=== PATIENT | female | born 1975 | race Native Hawaiian/Other Pacific Islander ===

== ENCOUNTER 2017-02-23 16:55 | Observation (INO) | payer OTHER ==
[2017-02-23] MEDS ORDERED: NITROGLYCERIN OINT 1 INCH/GM PACKET TOPICAL STA (18:54)
[2017-02-23] MEDS ORDERED: SODIUM CHLORIDE 0.9% 1,000 ML IV STA (18:54)
[2017-02-23] MEDS ORDERED: SODIUM CHLORIDE 0.9% 500 ML IV STA (18:54)
[2017-02-23] MEDS ORDERED: ASPIRIN 81 MG PO STA (18:54)
[2017-02-23 19:30] LABS: Basophils # (A) 0.1 k/uL (0-0.2); Basophils % (A) 1 %; CH 29.3; CHCM 32.3; Eosinophils # (A) 0.3 k/uL (0-0.7); Eosinophils % (A) 3 %; HCT 45.3 % (34.0-46.0); HDW 2.58; HGB 14.9 gm/dL (11.4-16.0); Luc # (Auto) 0.18; Luc % (Auto) 2; Lymphocytes # (A) 1.7 k/uL (1.0-4.8); Lymphocytes % (A) 19 %; MCH 29.9 pg (25.0-35.0); MCHC 32.8 g/dL (31.0-37.0); Mean Platelet Volume 7.3; Monocytes # (A) 0.4 k/uL (0-1.0); Monocytes % (A) 5 %; Neutrophils # (A) 6.4 k/uL (1.3-7.7); Neutrophils % (A) 71 %; RBC 4.97 m/uL (3.80-5.40); RDW 12.4 % (11.5-15.5); WBC (Perox) 9.12
[2017-02-23 19:39] LABS: HCG,Qualitative Serum Not Detected
[2017-02-23 19:42] LABS: ALT 30 U/L (9-52); AST 31 U/L (14-36); Alkaline Phosphatase 59 U/L (38-126); Anion Gap 13 mmol/L; Blood Urea Nitrogen 15 mg/dL (7-17); Calcium 9.2 mg/dL (8.4-10.2); Carbon Dioxide 21 mmol/L (22-30); Chloride 106 mmol/L (98-107); Glucose 83 mg/dL (74-99); Non-African American GFR(MDRD) >60 (>60 ml/min/1.73 sqM); Potassium 4.2 mmol/L (3.5-5.1); Sodium 140 mmol/L (137-145); Total Bilirubin 0.8 mg/dL (0.2-1.3); Total Protein 7.6 g/dL (6.3-8.2)
[2017-02-23 19:54] LABS: Creatine Kinase 61 U/L (30-135)
[2017-02-23 19:56] LABS: Partial Thromboplastin Time 25.5 sec (22.0-30.0); Prothrombin Time 10.4 sec (9.0-12.0)
--- NOTE | 2017-02-23 19:58 | XR ---
EXAMINATION TYPE: XR chest 2V DATE OF EXAM: 02/23/2017 COMPARISON: NONE HISTORY: Chest pain TECHNIQUE: Frontal and lateral views of the chest are obtained. FINDINGS: Heart and mediastinum are normal. Lungs are clear. Diaphragm is normal. Bony thorax is int act. There are chest leads. IMPRESSION: Normal chest. No change.
[2017-02-23 20:07] LABS: Creatine Kinase MB <0.2 ng/mL (0.0-2.4); Troponin I <0.012 ng/mL (0.000-0.034)
--- NOTE | 2017-02-23 20:13 | ED ---
Chest Pain HPI - General Chief Complaint: Chest Pain Stated Complaint: Weakness, fatigue, chest pains Time Seen by Provider: 02/23/17 18:48 Source: patient Mode of arrival: wheelchair Limitations: no limitations - History of Present Illness Initial Comments: This 42-year-old white female presents with the complaint of some chest pain. This is to her midsternal region. It has been intermittent over the past couple of weeks but more severe today. She states that she was also very fatigued and felt tired this morning. She did not go to work and apparently slept most of the day. She denies any leg pain or swelling or history of DVT or PE. She denies any known previous cardiac disease. She has had occasional palpitations her feelings like her heart is skipping a beat. She denies any fevers or chills. She has had occasional shortness of breath. This will occur at rest. She has never had any previous heart catheterizations. No other complaints or modifying factors. - Related Data Home Medications Medication Instructions Recorded Confirmed Cyclobenzaprine [Flexeril] 10 mg PO DAILY PRN 02/23/17 02/23/17 Meloxicam [Mobic] 7.5 mg PO DAILY PRN 02/23/17 02/23/17 Allergies Allergy/AdvReac Type Severity Reaction Status Date / Time doxycycline Allergy Nausea & Verified 02/23/17 19:05 Vomiting Penicillins Allergy Unknown Verified 02/23/17 19:05 Review of Systems ROS Statement: Those systems with pertinent positive or pertinent negative responses have been documented in the HPI. ROS Other: All systems not noted in ROS Statement are negative. Past Medical History Past Medical History: Osteoarthritis (OA) Additional Past Medical History / Comment(s): DDD History of Any Multi-Drug Resistant Organisms: None Reported Past Surgical History: Tubal Ligation Past Psychological History: No Psychological Hx Reported Smoking Status: Never smoker Past Alcohol Use History: Occasional Past Drug Use History: None Reported General Exam - General Exam Comments Initial Comments: GENERAL: The patient is well nourished and well hydrated. VITAL SIGNS: Heart rate, blood pressure, respiratory rate reviewed as recorded in nurse's notes. EYES: Pupils are round and reactive. Extraocular movements are intact. No conjunctival / lid redness or swelling. ENT: No external evidence of injury, swelling, or ecchymosis. Airway is patent. Throat is clear. NECK: Nontender. No swelling or evidence of injury. No subcutaneous emphysema. Trachea is midline. No thyroid mass. HEART: Regular rate and rhythm. Good peripheral pulses. No reproducible tenderness noted. LUNGS/CHEST: Breath sounds clear and equal bilaterally. No rales, rhonchi, or wheezes. No ecchymosis, subcutaneous emphysema, or tenderness. ABDOMEN: Abdomen soft without tenderness. No palpable masses or organomegaly. No peritoneal signs. No abdominal wall swelling or ecchymosis. EXTREMITIES: No extremity tenderness. Normal muscle tone and function. No thoracolumbar tenderness. NEUROLOGIC: Sensation is grossly intact. Cranial nerve exam reveals face is symmetrical, tongue is midline, speech is clear. SKIN: No abrasions or ecchymosis is noted. No induration or masses noted. PSYCHIATRIC: Alert and oriented. Appropriate behavior and judgment. Limitations: no limitations Course Vital Signs 02/23/17 02/23/17 02/23/17 17:01 19:30 19:42 Temperature 98.4 F Pulse Rate 77 86 66 Respiratory 18 18 18 Rate Blood Pressure 129/89 124/63 117/67 O2 Sat by Pulse 98 100 100 Oximetry 02/23/17 20:31 Temperature Pulse Rate 64 Respiratory 16 Rate Blood Pressure 129/69 O2 Sat by Pulse 100 Oximetry Chest Pain MDM - MDM The patient was seen and examined. All diagnostics were reviewed. The EKG shows a normal sinus rhythm at a rate of 83. There is no acute ST-T wave changes identified. The OK interval is 138, QRS duration is 84, and QTC intervals 432. An IV is started and patient was placed on a quality assurance monitor. No ectopy is identified. She does receive some aspirin as well as Nitropaste. The laboratory is unremarkable. The chest x-ray did not show any acute process. It is felt as though she would benefit from further inpatient workup to rule out acute coronary syndrome. The case is discussed with Dr. Arguello and he is agreeable with admission with cardiology to consult. Disposition Clinical Impression: Chest pain, Unstable angina pectoris Disposition: ADMITTED IP TO THIS HOSP Condition: Fair Time of Disposition: 21:14 Decision Date: 02/23/17 Decision Time: 21:14
[2017-02-23 20:33] VITALS: RESP 16
[2017-02-23] MEDS ORDERED: NITROGLYCERIN SL TABS 0.4 MG TAB SUBLINGUAL PRN (21:15)
[2017-02-23] MEDS ORDERED: MELOXICAM 7.5 MG TAB PO PRN (21:18)
[2017-02-23] MEDS ORDERED: CYCLOBENZAPRINE 10 MG TAB PO PRN (21:18)
[2017-02-23] MEDS: NITROGLYCERIN OINT 1 INCH/GM PACKET TOPICAL SCH (23:32)
[2017-02-24 01:08] LABS: Creatine Kinase 48 U/L (30-135)
[2017-02-24 01:22] LABS: Creatine Kinase MB <0.2 ng/mL (0.0-2.4); Troponin I <0.012 ng/mL (0.000-0.034)
[2017-02-24] MEDS ORDERED: ACETAMINOPHEN TAB 325 MG TAB PO PRN (01:51)
[2017-02-24] MEDS: NITROGLYCERIN OINT 1 INCH/GM PACKET TOPICAL SCH ×2 (05:38→12:08)
[2017-02-24 07:07] LABS: Cholesterol 141 mg/dL (<200); HDL Cholesterol 30 mg/dL (40-60)
[2017-02-24 07:18] LABS: Creatine Kinase 44 U/L (30-135)
[2017-02-24 07:32] LABS: Creatine Kinase MB <0.2 ng/mL (0.0-2.4); Troponin I <0.012 ng/mL (0.000-0.034)
[2017-02-24] MEDS ORDERED: ASPIRIN 325 MG TAB PO SCH (09:00)
[2017-02-24] MEDS ORDERED: ENOXAPARIN 40 MG/0.4 ML SYRINGE SQ SCH (09:00)
--- NOTE | 2017-02-24 10:44 | ECHOF ---
Referral Reason:cp MEASUREMENTS -------- HEIGHT: 157.5 cm WEIGHT: 79.4 kg BP: 111/56 RVIDd: 2.5 cm (< 3.3) IVSd: 1.1 cm (0.6 - 1.1) LVIDd: 4.6 cm (3.9 - 5.3) LVPWd: 0.8 cm (0.6 - 1.1) IVSs: 1.2 cm LVIDs: 3.4 cm LVPWs: 1.1 cm LA Diam: 3.3 cm (2.7 - 3.8) LAESV Index (A-L): 25.00 ml/m Ao Diam: 2.5 cm (2.0 - 3.7) AV Cusp: 1.9 cm (1.5 - 2.6) LA Diam: 3.6 cm (2.7 - 3.8) MV EXCURSION: 16.703 mm (> 18.000) MV EF SLOPE: 101 mm/s (70 - 150) EPSS: 0.8 cm MV E Cecilio: 0.68 m/s MV DecT: 165 ms MV A Cecilio: 0.73 m/s MV E/A Ratio: 0.93 RAP: 5.00 mmHg RVSP: 24.73 mmHg FINDINGS -------- Sinus rhythm. This was a technically adequate study. LV size, wall thickness and systolic function are normal, with an EF greater than 55%. The left ventricular size is normal. The right ventricle is normal in size. Normal LA size by volume 22+/-6 ml/m2. The right atrial size is normal. The aortic valve is trileaflet, and appears structurally normal. No aortic stenosis or regurgitation. Mild mitral regurgitation is present. Mild tricuspid regurgitation present. There is no evidence of pulmonary hypertension. The right ventricular systolic pressure, as measured by Doppler, is 24.73mmHg. There is no pulmonic regurgitation present. The aortic root size is normal. There is no pericardial effusion. CONCLUSIONS -------- 1. LV size, wall thickness and systolic function are normal, with an EF greater than 55%. 2. There is no pericardial effusion. 3. The left ventricular size is normal. 4. The aortic valve is trileaflet, and appears structurally normal. No aortic stenosis or regurgitation. 5. Mild mitral regurgitation is present. 6. Mild tricuspid regurgitation present. 7. There is no evidence of pulmonary hypertension. 8. The right ventricular systolic pressure, as measured by Doppler, is 24.73mmHg. 9. There is no pulmonic regurgitation present. 10. The aortic root size is normal. [employer]CTION MANAGER: Pinky Owusu RDCS
--- NOTE | 2017-02-24 12:10 | P.CRDCN ---
History of Present Illness Consult date: 02/24/17 History of present illness: This is a 42-year-old female with no significant medical hisotry. She presents to ED with c/o midsternal burning for the previous month intermittently. She states the feeling comes without any precipitating factors she can recall. It is worse when she lays down. Has been taking tums frequently with some relief. Although she has been dealing with this burning for some time yesterday she felt increased fatigue, nausea and generalized body aches and wanted to sleep all day. No history of HTN, HLD, CAD, never smoker, denies alcohol use. She has never seen a community arts centre manager for any reason. EKG indicates NSR with no acute ST or T-wave abnormalities. CXR indicates no acute cardiopulmonary process. BP 96/52, heart rate 68. No further episodes of burning since admission. Review of Systems Extensive review of systems performed, negative except mentioned in HPI. Past Medical History Past Medical History: Osteoarthritis (OA) Additional Past Medical History / Comment(s): DDD History of Any Multi-Drug Resistant Organisms: None Reported Past Surgical History: Tubal Ligation Past Anesthesia/Blood Transfusion Reactions: No Reported Reaction Past Psychological History: No Psychological Hx Reported Smoking Status: Never smoker Past Alcohol Use History: Occasional Past Drug Use History: None Reported - Past Family History Father Family Medical History: Diabetes Mellitus, Renal Disease Mother Family Medical History: Hypertension Brother(s) Family Medical History: Cancer Additional Family Medical History / Comment(s): scizophrenia, cancer unknown Sister(s) Family Medical History: No Reported History Son(s) Additional Family Medical History / Comment(s): autism, ADD Medications and Allergies Home Medications Medication Instructions Recorded Confirmed Type Cyclobenzaprine [Flexeril] 10 mg PO DAILY PRN 02/23/17 02/23/17 History Meloxicam [Mobic] 7.5 mg PO DAILY PRN 02/23/17 02/23/17 History Allergies Allergy/AdvReac Type Severity Reaction Status Date / Time doxycycline Allergy Nausea & Verified 02/23/17 22:32 Vomiting Penicillins Allergy Unknown Verified 02/23/17 22:32 Physical Exam Vitals: Vital Signs Temp Pulse Pulse Resp BP BP Pulse Ox 02/24/17 07:50 98.1 F 68 16 96/52 99 02/24/17 04:00 98.2 F 64 16 111/56 98 02/24/17 03:25 16 02/23/17 22:34 16 02/23/17 22:24 98.1 F 65 16 122/77 99 02/23/17 21:26 72 16 131/81 99 02/23/17 20:31 64 16 129/69 100 02/23/17 19:42 66 18 117/67 100 02/23/17 19:30 86 18 124/63 100 02/23/17 17:01 98.4 F 77 18 129/89 98 Intake and Output 02/23/17 02/24/17 02/24/17 22:59 06:59 14:59 Intake Total 800 Balance 800 Intake: IV 800 Sodium Chloride 0.9% 1, 800 000 ml @ 100 mls/hr IV . Q10H STA Rx#:[id number] Other: Voiding Method Toilet Toilet # Voids 2 Weight 72.575 kg 78.8 kg GENERAL: This is a 42-year-old female in no apparent distress at the time of my examination. HEENT: Head is atraumatic, normocephalic. Pupils are equal, round. Sclerae anicteric. Conjunctivae are clear. Mucous membranes of the mouth are moist. Neck is supple. There is no jugular venous distention. No carotid bruit is heard. LUNGS: Clear to auscultation no wheezes, rales or rhonchi. No chest wall tenderness is noted on palpation or with deep breathing. HEART: Regular rate and rhythm without murmurs, rubs or gallops. S1 and S2 heard. ABDOMEN: Soft, nontender. Bowel sounds are heard. No organomegaly noted. EXTREMITIES: 2+ peripheral pulses with no evidence of peripheral edema and no calf tenderness noted. NEUROLOGIC: Patient is awake, alert and oriented x3. Results 02/23/17 18:10 02/23/17 18:10 Cardiac Enzymes 02/23/17 02/23/17 02/23/17 Range/Units 18:10 18:10 23:51 AST 31 (14-36) U/L CK-MB (CK-2) <0.2 <0.2 (0.0-2.4) ng/mL Troponin I <0.012 <0.012 (0.000-0.034) ng/mL 02/24/17 Range/Units 06:26 AST (14-36) U/L CK-MB (CK-2) <0.2 (0.0-2.4) ng/mL Troponin I <0.012 (0.000-0.034) ng/mL Coagulation 02/23/17 Range/Units 19:40 PT 10.4 (9.0-12.0) sec APTT 25.5 (22.0-30.0) sec Lipids 02/24/17 Range/Units 06:26 Triglycerides 114 (<150) mg/dL Cholesterol 141 (<200) mg/dL HDL Cholesterol 30 L (40-60) mg/dL CBC 02/23/17 Range/Units 18:10 WBC 9.0 (3.8-10.6) k/uL RBC 4.97 (3.80-5.40) m/uL Hgb 14.9 (11.4-16.0) gm/dL Hct 45.3 (34.0-46.0) % Plt Count 272 (150-450) k/uL Comprehensive Metabolic Panel 02/23/17 Range/Units 18:10 Sodium 140 (137-145) mmol/L Potassium 4.2 (3.5-5.1) mmol/L Chloride 106 (98-107) mmol/L Carbon Dioxide 21 L (22-30) mmol/L BUN 15 (7-17) mg/dL Creatinine 0.64 (0.52-1.04) mg/dL Glucose 83 (74-99) mg/dL Calcium 9.2 (8.4-10.2) mg/dL AST 31 (14-36) U/L ALT 30 (9-52) U/L Alkaline Phosphatase 59 (38-126) U/L Total Protein 7.6 (6.3-8.2) g/dL Albumin 4.6 (3.5-5.0) g/dL Current Medications Generic Name Dose Route Start Last Admin Trade Name Freq PRN Reason Stop Dose Admin Acetaminophen 650 mg 02/24/17 01:51 Tylenol Tab PO Q4HR PRN Fever and/ or Pain Aspirin 325 mg 02/24/17 09:00 Aspirin PO DAILY BRITTANY Cyclobenzaprine HCl 10 mg 02/23/17 21:18 02/23/17 23:32 Flexeril PO 5 mg DAILY PRN Administration Pain Enoxaparin Sodium 40 mg 02/24/17 09:00 Lovenox SQ DAILY BRITTANY Meloxicam 7.5 mg 02/23/17 21:18 02/23/17 23:32 Mobic PO 7.5 mg DAILY PRN Administration Vertigo Nitroglycerin 1 inch 02/24/17 00:00 02/24/17 05:38 Nitro-Bid Oint TOPICAL Not Given Q6HR BRITTANY Nitroglycerin 0.4 mg 02/23/17 21:15 Nitrostat SUBLINGUAL Q5M PRN Chest Pain Intake and Output 02/23/17 02/24/17 02/24/17 22:59 06:59 14:59 Intake Total 800 Balance 800 Intake: IV 800 Sodium Chloride 0.9% 1, 800 000 ml @ 100 mls/hr IV . Q10H STA Rx#:[id number] Other: Voiding Method Toilet Toilet # Voids 2 Weight 72.575 kg 78.8 kg 02/23/17 18:10 02/23/17 18:10 EKG Interpretations (text) EKG indicates a normal sinus mechanism with no acute ST or T-wave abnormalities. Assessment and Plan Plan: ASSESSMENT 1. Chest pain, atypical. Suspect reflux disease. 2. Viral syndrome PLAN Obtain echocardiogram and check d-dimer. This presentation is not highly suggestive of acute coronary syndrome. If the echo and d-dimer are acceptable, the patient should be discharged home. She has been advised to follow up in the office with Dr. Oviedo to schedule an outpatient stress test once her viral syndrome has subsided. Thank you kindly for this consultation. Nurse Practitioner note has been reviewed, I agree with a documented findings and plan of care. Patient was seen and examined.
[2017-02-24 14:13] VITALS: BP 118/63; PULSE 77; TEMP 98.8
--- NOTE | 2017-02-27 07:46 | P.HPIM ---
History of Present Illness H&P Date: 02/23/17 Chief Complaint: Chest pressure. This is a history of physical and a 42-year-old female who complained of significant chest pressure for several days prior to admission. She has no previous cardiac history. However, given her overall cardiac history of chest pressure and some nausea with diaphoresis, she was appropriately evaluated for observation. Enzymatic elevation is not been seen so far. She seems less anxious now that she's been admitted. Cardiology is now been consulted. Review of Systems Constitutional: Denies chills, Denies fever Eyes: denies blurred vision, denies pain Ears, nose, mouth and throat: Denies headache, Denies sore throat Cardiovascular: Reports as per HPI, Reports chest pain Respiratory: Denies cough Gastrointestinal: Denies abdominal pain, Denies diarrhea, Denies nausea, Denies vomiting Genitourinary: Denies dysuria, Denies hematuria Past Medical History Past Medical History: Osteoarthritis (OA) Additional Past Medical History / Comment(s): DDD History of Any Multi-Drug Resistant Organisms: None Reported Past Surgical History: Tubal Ligation Past Anesthesia/Blood Transfusion Reactions: No Reported Reaction Past Psychological History: No Psychological Hx Reported Smoking Status: Never smoker Past Alcohol Use History: Occasional Past Drug Use History: None Reported - Past Family History Father Family Medical History: Diabetes Mellitus, Renal Disease Mother Family Medical History: Hypertension Brother(s) Family Medical History: Cancer Additional Family Medical History / Comment(s): scizophrenia, cancer unknown Sister(s) Family Medical History: No Reported History Son(s) Additional Family Medical History / Comment(s): autism, ADD Medications and Allergies Home Medications Medication Instructions Recorded Confirmed Type Cyclobenzaprine [Flexeril] 10 mg PO DAILY PRN 02/23/17 02/23/17 History Meloxicam [Mobic] 7.5 mg PO DAILY PRN 02/23/17 02/23/17 History Allergies Allergy/AdvReac Type Severity Reaction Status Date / Time doxycycline Allergy Nausea & Verified 02/23/17 22:32 Vomiting Penicillins Allergy Unknown Verified 02/23/17 22:32 Physical Exam - Constitutional General appearance: average body habitus - EENT Eyes: EOMI - Neck Neck: no lymphadenopathy - Respiratory Respiratory: bilateral: CTA - Cardiovascular Rhythm: regular Heart sounds: normal: S1, S2 - Gastrointestinal General gastrointestinal: soft, no tenderness - Integumentary Integumentary: no cellulitis - Musculoskeletal Musculoskeletal: gait normal Results CBC & Chem 7: 02/23/17 18:10 02/23/17 18:10 Thrombosis Risk Factor Assmnt - Choose All That Apply Any of the Below Risk Factors Present?: Yes Each Factor Represents 1 point: Obesity (BMI >25) Other Risk Factors: No Other congenital or acquired thrombophilia - If yes, enter type in comment: No Thrombosis Risk Factor Assessment Total Risk Factor Score: 1 Thrombosis Risk Factor Assessment Level: Low Risk Assessment and Plan (1) Chest pain Status: Acute (2) Unstable angina pectoris Status: Acute Plan: Plan will be to rule out myocardial infarction and then have cardiology consulted. I expect her to have appropriate stress testing prior to discharge. Reconcile medications as necessary. Lifestyle medication discussed with the patient.
--- NOTE | 2017-02-27 07:47 | P.DS ---
Providers Date of admission: 02/23/17 21:15 Attending physician: Noel Arguello Consults: 02/23/17 21:15 Consult Physician Urgent Consulting Provider: Ian Goodman Consult Reason/Comments: cp Do you want consulting provider notified?: Yes Primary care physician: Noel Arguello - Discharge Diagnosis(es) (1) Chest pain Status: Acute (2) Unstable angina pectoris Status: Acute Hospital Course: The patient was admitted for appropriate rule out myocardial infraction because of her chest pain element. However, the patient ended up leaving AGAINST MEDICAL ADVICE. I'll follow as necessary. Patient Condition at Discharge: Fair Plan - Discharge Summary New Discharge Prescriptions: No Action Meloxicam [Mobic] 7.5 mg PO DAILY PRN PRN Reason: Vertigo Cyclobenzaprine [Flexeril] 10 mg PO DAILY PRN PRN Reason: Pain Discharge Medication List Cyclobenzaprine [Flexeril] 10 mg PO DAILY PRN 02/23/17 [History] Meloxicam [Mobic] 7.5 mg PO DAILY PRN 02/23/17 [History] Discharge Disposition: Left Against Medical Advice
== END 2017-02-24 12:15 | disposition left against medical advice (07) ==
LOC: EC 16:55 → 3OBS 21:15
PROVIDERS: ADMIT Family Medicine; ATTEND Family Medicine
DX: R07.89 Other chest pain (principal); I20.0 Unstable angina; B34.9 Viral infection, unspecified; R52 Pain, unspecified; M19.90 Unspecified osteoarthritis, unspecified site; Z88.0 Allergy status to penicillin; Z88.1 Allergy status to other antibiotic agents; Z83.3 Family history of diabetes mellitus; Z82.49 Family history of ischemic heart disease and other diseases of the circulatory system; Z53.21 Procedure and treatment not carried out due to patient leaving prior to being seen by health care provider
CPT/HCPCS: 99285; 96360; 96361 ×5; 36415; 93005; 93306; 85379; 80061; 80053; 82550 ×2; 82553 ×2; 83735; 84484 ×2; 85025; 85610; 85730; 84703; 71020; G0378 ×2

== ENCOUNTER 2018-02-03 13:18 | Emergency (ER) | payer BC, OTHER ==
[2018-02-03 13:27] VITALS: RESP 18
[2018-02-03] MEDS ORDERED: SODIUM CHLORIDE 0.9% 1,000 ML IV STA (13:52)
[2018-02-03 14:26] LABS: Basophils # (A) 0.1 k/uL (0-0.2); Basophils % (A) 1 %; Eosinophils # (A) 0.2 k/uL (0-0.7); Eosinophils % (A) 2 %; HCT 44.3 % (34.0-46.0); Lymphocytes # (A) 1.3 k/uL (1.0-4.8); Lymphocytes % (A) 18 %; MCH 29.1 pg (25.0-35.0); MCHC 31.5 g/dL (31.0-37.0); MCV 92.4 fL (80.0-100.0); Mean Platelet Volume 6.7; Monocytes # (A) 0.4 k/uL (0-1.0); Monocytes % (A) 5 %; Neutrophils # (A) 5.4 k/uL (1.3-7.7); Neutrophils % (A) 73 %; Platelet Count 248 k/uL (150-450); WBC 7.4 k/uL (3.8-10.6)
--- NOTE | 2018-02-03 14:33 | ED ---
Abdominal Pain HPI - General Chief Complaint: Abdominal Pain Stated Complaint: lower right abdominal pain/lightheaded Time Seen by Provider: 02/03/18 13:33 Source: patient, RN notes reviewed Mode of arrival: ambulatory Limitations: no limitations - History of Present Illness Initial Comments: 43-year-old female presents emergency Department with chief complaint of right lower quadrant abdominal pain. Patient states seems to wax and wane. Patient states started slightly yesterday worse today. She states that the pain is actually improved this time with severe it sharp stabbing type pain. Patient states that she had a menstrual cycle 2 weeks ago denies any chance . Patient denies any dysuria, hematuria, fever, chills. She has had some intermittent episodes of dizziness and states it's more of late feeling lightheaded. Patient no chest pain or shortness of breath. - Related Data Home Medications Medication Instructions Recorded Confirmed Albuterol Sulfate [Proair Hfa] 1 - 2 puff INHALATION Q6HR PRN 02/03/18 02/03/18 Cyclobenzaprine [Flexeril] 5 mg PO HS 02/03/18 02/03/18 Fluticasone/Vilanterol [Breo 1 inhalation PO DAILY 02/03/18 02/03/18 Ellipta 100-25 Mcg Inhaler] Melatonin 3 mg PO HS PRN 02/03/18 02/03/18 Montelukast Sodium [Singulair] 10 mg PO HS 02/03/18 02/03/18 Allergies Allergy/AdvReac Type Severity Reaction Status Date / Time doxycycline Allergy Nausea & Verified 02/03/18 14:00 Vomiting Penicillins Allergy Unknown Verified 02/03/18 14:00 Review of Systems ROS Statement: Those systems with pertinent positive or pertinent negative responses have been documented in the HPI. ROS Other: All systems not noted in ROS Statement are negative. Past Medical History Past Medical History: Asthma, Osteoarthritis (OA) Additional Past Medical History / Comment(s): DDD History of Any Multi-Drug Resistant Organisms: None Reported Past Surgical History: Tubal Ligation Past Anesthesia/Blood Transfusion Reactions: No Reported Reaction Past Psychological History: No Psychological Hx Reported Smoking Status: Never smoker Past Alcohol Use History: Occasional Past Drug Use History: None Reported - Past Family History Father Family Medical History: Diabetes Mellitus, Renal Disease Mother Family Medical History: Hypertension Brother(s) Family Medical History: Cancer Additional Family Medical History / Comment(s): scizophrenia, cancer unknown Sister(s) Family Medical History: No Reported History Son(s) Additional Family Medical History / Comment(s): autism, ADD General Exam Limitations: no limitations General appearance: alert, in no apparent distress Head exam: Present: atraumatic, normocephalic, normal inspection Neck exam: Present: normal inspection, full ROM. Absent: tenderness, meningismus, lymphadenopathy Respiratory exam: Present: normal lung sounds bilaterally. Absent: respiratory distress, wheezes, rales, rhonchi, stridor Cardiovascular Exam: Present: regular rate, normal rhythm, normal heart sounds. Absent: systolic murmur, diastolic murmur, rubs, gallop, clicks GI/Abdominal exam: Present: soft, tenderness (Mild right lower quadrant), normal bowel sounds. Absent: distended, guarding, rebound, rigid Back exam: Absent: CVA tenderness (R), CVA tenderness (L) Course Vital Signs 02/03/18 13:24 Temperature 98.4 F Pulse Rate 80 Respiratory 18 Rate Blood Pressure 139/77 O2 Sat by Pulse 98 Oximetry Medical Decision Making - Medical Decision Making 43-year-old female presents for abdominal pain. Patient is found to have multiple fibroids on her uterus. This may be leading to abdominal discomfort. Patient be advised to follow-up with her [facility]. Return parameters were discussed. - Lab Data Result diagrams: 02/03/18 14:08 02/03/18 14:08 Lab Results 02/03/18 02/03/18 02/03/18 Range/Units 14:08 14:08 14:08 WBC 7.4 (3.8-10.6) k/uL RBC 4.80 (3.80-5.40) m/uL Hgb 14.0 (11.4-16.0) gm/dL Hct 44.3 (34.0-46.0) % MCV 92.4 (80.0-100.0) fL MCH 29.1 (25.0-35.0) pg MCHC 31.5 (31.0-37.0) g/dL RDW 13.0 (11.5-15.5) % Plt Count 248 (150-450) k/uL Neutrophils % 73 % Lymphocytes % 18 % Monocytes % 5 % Eosinophils % 2 % Basophils % 1 % Neutrophils # 5.4 (1.3-7.7) k/uL Lymphocytes # 1.3 (1.0-4.8) k/uL Monocytes # 0.4 (0-1.0) k/uL Eosinophils # 0.2 (0-0.7) k/uL Basophils # 0.1 (0-0.2) k/uL Sodium 139 (137-145) mmol/L Potassium 3.6 (3.5-5.1) mmol/L Chloride 107 (98-107) mmol/L Carbon Dioxide 23 (22-30) mmol/L Anion Gap 9 mmol/L BUN 12 (7-17) mg/dL Creatinine 0.52 (0.52-1.04) mg/dL Est GFR (CKD-EPI)AfAm >90 (>60 ml/min/1.73 sqM) Est GFR (CKD-EPI)NonAf >90 (>60 ml/min/1.73 sqM) Glucose 91 (74-99) mg/dL Calcium 9.0 (8.4-10.2) mg/dL Total Bilirubin 0.5 (0.2-1.3) mg/dL AST 34 (14-36) U/L ALT 49 (9-52) U/L Alkaline Phosphatase 67 (38-126) U/L Troponin I <0.012 (0.000-0.034) ng/mL Total Protein 6.9 (6.3-8.2) g/dL Albumin 4.1 (3.5-5.0) g/dL Amylase 66 (30-110) U/L Lipase 298 (23-300) U/L Urine Color Urine Appearance (Clear) Urine pH (5.0-8.0) Ur Specific [place] (1.001-1.035) Urine Protein (Negative) Urine Glucose (UA) (Negative) Urine Ketones (Negative) Urine Blood (Negative) Urine Nitrite (Negative) Urine Bilirubin (Negative) Urine Urobilinogen (<2.0) mg/dL Ur Leukocyte Esterase (Negative) 02/03/18 Range/Units 14:57 WBC (3.8-10.6) k/uL RBC (3.80-5.40) m/uL Hgb (11.4-16.0) gm/dL Hct (34.0-46.0) % MCV (80.0-100.0) fL MCH (25.0-35.0) pg MCHC (31.0-37.0) g/dL RDW (11.5-15.5) % Plt Count (150-450) k/uL Neutrophils % % Lymphocytes % % Monocytes % % Eosinophils % % Basophils % % Neutrophils # (1.3-7.7) k/uL Lymphocytes # (1.0-4.8) k/uL Monocytes # (0-1.0) k/uL Eosinophils # (0-0.7) k/uL Basophils # (0-0.2) k/uL Sodium (137-145) mmol/L Potassium (3.5-5.1) mmol/L Chloride (98-107) mmol/L Carbon Dioxide (22-30) mmol/L Anion Gap mmol/L BUN (7-17) mg/dL Creatinine (0.52-1.04) mg/dL Est GFR (CKD-EPI)AfAm (>60 ml/min/1.73 sqM) Est GFR (CKD-EPI)NonAf (>60 ml/min/1.73 sqM) Glucose (74-99) mg/dL Calcium (8.4-10.2) mg/dL Total Bilirubin (0.2-1.3) mg/dL AST (14-36) U/L ALT (9-52) U/L Alkaline Phosphatase (38-126) U/L Troponin I (0.000-0.034) ng/mL Total Protein (6.3-8.2) g/dL Albumin (3.5-5.0) g/dL Amylase (30-110) U/L Lipase (23-300) U/L Urine Color Light Yellow Urine Appearance Clear (Clear) Urine pH 7.0 (5.0-8.0) Ur Specific [place] 1.008 (1.001-1.035) Urine Protein Negative (Negative) Urine Glucose (UA) Negative (Negative) Urine Ketones Negative (Negative) Urine Blood Negative (Negative) Urine Nitrite Negative (Negative) Urine Bilirubin Negative (Negative) Urine Urobilinogen <2.0 (<2.0) mg/dL Ur Leukocyte Esterase Negative (Negative) - EKG Data EKG Comments: EKG performed at 14:12 normal sinus rhythm rate of 71 RI 144 QRS 68 QT/QTC 396/ 430 Disposition Clinical Impression: Abdominal pain, Fibroid uterus Disposition: HOME SELF-CARE Condition: Stable Instructions: Uterine Fibroids (ED) Additional Instructions: Please return to the Emergency Department if symptoms worsen or any other concerns. Is patient prescribed a controlled substance at d/c from ED?: No Referrals: Noel Arguello MD [Primary Care Provider] - 1-2 days Time of Disposition: 16:05
[2018-02-03 14:35] LABS: ALT 49 U/L (9-52); AST 34 U/L (14-36); Albumin 4.1 g/dL (3.5-5.0); Alkaline Phosphatase 67 U/L (38-126); Amylase 66 U/L (30-110); Anion Gap 9 mmol/L; Blood Urea Nitrogen 12 mg/dL (7-17); Carbon Dioxide 23 mmol/L (22-30); Chloride 107 mmol/L (98-107); Glucose 91 mg/dL (74-99); Lipase 298 U/L (23-300); Potassium 3.6 mmol/L (3.5-5.1); Sodium 139 mmol/L (137-145); Total Bilirubin 0.5 mg/dL (0.2-1.3); Total Protein 6.9 g/dL (6.3-8.2)
--- NOTE | 2018-02-03 14:52 | US ---
EXAMINATION TYPE: US transvaginal DATE OF EXAM: 02/03/2018 COMPARISON: NONE CLINICAL HISTORY: Pain. shooting pain in abd today TECHNIQUE: TV Transabdominal sonographic images of the pelvis were acquired. Date of LMP: 01/17/2018 EXAM MEASUREMENTS: Uterus: 10.1 x 6.8 x 6.8cm Endometrial Stripe: N/A Right Ovary: 2.5 x 2.7 x 2.2cm Left Ovary: 2.9 x 1.7 x 1.6cm 1. Uterus: Anteverted bulky, heterogeneous fundus may represent multiple fibroids, largest measure d 4.7cm 2. Endometrium: unable to visualize with certainty due to fibroids. 3. Right Ovary: wnl 4. Left Ovary: wnl Spectral, color and waveform doppler imaging shows good arterial and venous flow within the ovaries ; there is no evidence for ovarian torsion. 5. Bilateral Adnexa: wnl 6. Posterior cul-de-sac: wnl IMPRESSION: Fibroid uterus. Pelvic MRI may be of benefit.
[2018-02-03 15:04] LABS: Appearance,Urine Clear (Clear); Bilirubin,Urine Negative (Negative); Blood,Urine Negative (Negative); Color,Urine Light Yellow; Glucose,Urine (UA) Negative (Negative); Ketones,Urine Negative (Negative); Leukocyte Esterase,Urine Negative (Negative); Nitrite,Urine Negative (Negative); Protein,Urine Negative (Negative); Specific Gravity,Urine 1.008 (1.001-1.035); Urobilinogen,Urine <2.0 mg/dL (<2.0)
--- NOTE | 2018-02-03 15:56 | CT ---
EXAMINATION TYPE: CT abdomen pelvis w con DATE OF EXAM: 02/03/2018 COMPARISON: HISTORY: Right lower quadrant pain. CT DLP: 1150.4 mGycm CONTRAST: CT scan of the abdomen and pelvis is performed without Oral Contrast and with IV Contrast, patient in jected with 100 mL of Isovue M300. FINDINGS: LUNG BASES-: No visible nodule. No infiltrate. LIVER/GB: No calcified gallstones. There is evidence of hepatic steatosis. No space occupying hepat ic lesion. Biliary tree is of normal caliber. PANCREAS: No inflammation. No distinct mass. SPLEEN: No splenic enlargement. No lesion seen. ADRENALS: No nodule. No thickening. KIDNEYS/BLADDER: No hydronephrosis. No nephrolithiasis. No distinct renal mass. Urinary bladder g rossly unremarkable. BOWEL: Normal appendix. Normal bowel caliber. No inflammation. GENITAL ORGANS: Enlarged heterogenous uterus. This may reflect underlying leiomyomatous change. No o varian masses appreciated. LYMPH NODES: No greater than 1cm abdominal or pelvic lymph nodes are appr eciated. AORTA: No significant abnormality. OSSEOUS STRUCTURES: No significant abnormality is seen. OTHER: No significant additional abnormality is seen. IMPRESSION: 1. No acute process appreciated. 2. Probable leiomyomatous change of the uterus.
[2018-02-03 16:20] VITALS: BP 154/76; PULSE 76; TEMP 97.9
== END 2018-02-03 16:21 | disposition home or self-care (01) ==
LOC: EC 13:18
DX: D25.9 Leiomyoma of uterus, unspecified (principal); R10.31 Right lower quadrant pain; R42 Dizziness and giddiness; J45.909 Unspecified asthma, uncomplicated; M19.90 Unspecified osteoarthritis, unspecified site; Z79.51 Long term (current) use of inhaled steroids; Z79.899 Other long term (current) drug therapy; Z88.0 Allergy status to penicillin; Z88.1 Allergy status to other antibiotic agents; Z98.51 Tubal ligation status
CPT/HCPCS: 36415; 93005; 80053; 82150; 83690; 84484; 85025; 81003; 93975; 76830; 74177; 99284; 96360; Q9967

== ENCOUNTER 2018-04-27 04:39 | Inpatient (IN) | payer BC ==
[2018-04-27] MEDS ORDERED: MORPHINE SULFATE 4 MG/ML SYRINGE IV STA (05:32)
[2018-04-27] MEDS ORDERED: SODIUM CHLORIDE 0.9% 1,000 ML IV STA (05:32)
[2018-04-27 05:47] LABS: Basophils % (A) 0 %; Eosinophils # (A) 0.2 k/uL (0-0.7); Eosinophils % (A) 2 %; HCT 42.2 % (34.0-46.0); HGB 14.2 gm/dL (11.4-16.0); Lymphocytes # (A) 1.5 k/uL (1.0-4.8); Lymphocytes % (A) 11 %; MCH 30.4 pg (25.0-35.0); MCHC 33.7 g/dL (31.0-37.0); MCV 90.2 fL (80.0-100.0); Monocytes # (A) 0.6 k/uL (0-1.0); Monocytes % (A) 4 %; Neutrophils # (A) 10.6 k/uL (1.3-7.7); Neutrophils % (A) 81 %; Platelet Count 261 k/uL (150-450); RBC 4.68 m/uL (3.80-5.40); RDW 12.7 % (11.5-15.5); WBC 13.1 k/uL (3.8-10.6)
[2018-04-27 06:05] LABS: ALT 37 U/L (9-52); AST 43 U/L (14-36); Albumin 4.2 g/dL (3.5-5.0); Alkaline Phosphatase 65 U/L (38-126); Anion Gap 11 mmol/L; Blood Urea Nitrogen 12 mg/dL (7-17); Calcium 9.1 mg/dL (8.4-10.2); Carbon Dioxide 21 mmol/L (22-30); Chloride 108 mmol/L (98-107); Glucose 101 mg/dL (74-99); Lipase 182 U/L (23-300); Potassium 3.2 mmol/L (3.5-5.1); Sodium 140 mmol/L (137-145); Total Protein 7.3 g/dL (6.3-8.2)
[2018-04-27 06:18] LABS: Appearance,Urine Cloudy (Clear); Bacteria,Urine Few /hpf; Bilirubin,Urine Negative (Negative); Blood,Urine Trace (Negative); Color,Urine Yellow; Glucose,Urine (UA) Negative (Negative); Ketones,Urine Negative (Negative); Leukocyte Esterase,Urine Negative (Negative); Mucus,Urine Many /hpf; Nitrite,Urine Negative (Negative); Protein,Urine Trace (Negative); RBC,Urine 3 /hpf (0-5); Specific Gravity,Urine 1.022 (1.001-1.035); Squamous Epithelial Cell,Urine 18 /hpf (0-4); Urobilinogen,Urine <2.0 mg/dL (<2.0); WBC,Urine 2 /hpf (0-5)
--- NOTE | 2018-04-27 06:41 | ED ---
Abdominal Pain HPI - General Source: patient Mode of arrival: ambulatory Limitations: no limitations <Sravanthi Pinto - Last Filed: 04/27/18 08:22> <Hima Ross - Last Filed: 04/27/18 12:09> - General Chief Complaint: Abdominal Pain Stated Complaint: Abdominal Pain Time Seen by Provider: 04/27/18 04:52 - History of Present Illness Initial Comments: Patient is a 43-year-old female who presents to the emergency department today for evaluation of crampy lower abdominal pain. She reports she has had vague crampy abdominal pain for a few days duration. She reports that it initially felt similar to menstrual cramps though she is midcycle at this point. She states that on Thursday as well as Thursday she did have some diarrhea but attributed this to some alcohol that she drank the night before. Patient reports that the pain is progressively worsened over the past few days. She states that yesterday while showering she did notice some vaginal discharge but wasn't concerned by it. She has been in a monogamous relationship for the past 2 years though they did recently break up, she denies any concern for sexual transmitted infections but does admit they were having unprotected sex and is uncertain if her now ex-boyfriend may have been unfaithful. She reports she feels nauseated but hasn't been vomiting. She has not had any diarrhea since Thursday. She hasn't had any associated fevers, chills chest pain or trouble breathing. Patient does report a history of fibroids for which she had a D&C and biopsy but does not know the results of that. She's not certain the name of the doctor reports that the procedure was done at [facility]. (Sravanthi Pinto) - Related Data Home Medications Medication Instructions Recorded Confirmed Albuterol Sulfate [Proair Hfa] 1 - 2 puff INHALATION RT-Q6H PRN 02/03/18 Cyclobenzaprine [Flexeril] 5 mg PO HS 02/03/18 04/27/18 Fluticasone/Vilanterol [Breo 1 inhalation PO DAILY 02/03/18 04/27/18 Ellipta 100-25 Mcg Inhaler] Montelukast Sodium [Singulair] 10 mg PO HS 02/03/18 04/27/18 Allergies Allergy/AdvReac Type Severity Reaction Status Date / Time doxycycline Allergy Nausea & Verified 04/27/18 06:57 Vomiting Penicillins Allergy Unknown Verified 04/27/18 06:57 Review of Systems ROS Other: All systems not noted in ROS Statement are negative. <Sravanthi Pinto - Last Filed: 04/27/18 08:22> ROS Other: All systems not noted in ROS Statement are negative. <Hima Ross - Last Filed: 04/27/18 12:09> ROS Statement: Those systems with pertinent positive or pertinent negative responses have been documented in the HPI. Past Medical History Past Medical History: Asthma, Osteoarthritis (OA) Additional Past Medical History / Comment(s): DDD History of Any Multi-Drug Resistant Organisms: None Reported Past Surgical History: Tubal Ligation Past Anesthesia/Blood Transfusion Reactions: No Reported Reaction Past Psychological History: No Psychological Hx Reported Smoking Status: Never smoker Past Alcohol Use History: Occasional Past Drug Use History: None Reported - Past Family History Father Family Medical History: Diabetes Mellitus, Renal Disease Mother Family Medical History: Hypertension Brother(s) Family Medical History: Cancer Additional Family Medical History / Comment(s): scizophrenia, cancer unknown Sister(s) Family Medical History: No Reported History Son(s) Additional Family Medical History / Comment(s): autism, ADD <Sravanthi Pinto P - Last Filed: 04/27/18 08:22> General Exam Limitations: no limitations <Sravanthi Pinto - Last Filed: 04/27/18 08:22> <Hima Ross - Last Filed: 04/27/18 12:09> - General Exam Comments Initial Comments: GENERAL: Patient is well-developed and well-nourished. Patient lying in the bed in position and appears uncomfortable HENT: Normocephalic, Atraumatic. EYES: The sclera were anicteric and conjunctiva were pink and moist. Extraocular movements were intact and pupils were equal round and reactive to light. Eyelids were unremarkable. PULMONARY: Unlabored respirations. Good breath sounds bilaterally. No audible rales rhonchi or wheezing was noted. CARDIOVASCULAR: Tachycardia, regular, warm and well perfused extremities ABDOMEN: Soft, normal active bowel sounds in all quadrants Mild tenderness to palpation in the left lower quadrant and suprapubic region SKIN: Skin is clear with no lesions or rashes and otherwise unremarkable. : Normal external vaginal exam Speculum exam reveals purulent discharge from the cervix, cervical motion tenderness and tenderness to palpation in the region of the left adnexa No strawberry cervix, no bleeding NEUROLOGIC: Patient is alert and oriented x3. Cranial nerves II through XII are grossly intact. Motor and sensory are also intact. Normal speech, volume and content. Symmetrical smile. MUSCULOSKELETAL: Normal extremities with adequate strength and full range of motion. No lower extremity swelling or edema. No calf tenderness. LYMPHATICS: No significant lymphadenopathy is noted PSYCHIATRIC: Normal psychiatric evaluation. Limitations: no limitations (Sravanthi Pinto) Course <Sravanthi Pinto - Last Filed: 04/27/18 08:22> <Hima Ross - Last Filed: 04/27/18 12:09> Vital Signs 04/27/18 04/27/18 04/27/18 04:43 06:00 09:52 Temperature 98.5 F 98 F Pulse Rate 89 90 88 Respiratory 21 18 18 Rate Blood Pressure 162/95 144/74 138/78 O2 Sat by Pulse 98 97 138 H Oximetry 04/27/18 11:31 Temperature Pulse Rate 87 Respiratory 18 Rate Blood Pressure 138/78 O2 Sat by Pulse 95 Oximetry - Reevaluation(s) Reevaluation #1: 04/27/18 12:07 There is concern for patient meet sepsis criteria diagnosed at 12:07 PM. Blood culture and lactic acid and IV antibiotics have already been ordered. (Hima Ross) Medical Decision Making - Lab Data Result diagrams: 04/27/18 05:16 04/27/18 05:16 <Sravanthi Pinto - Last Filed: 04/27/18 08:22> - Lab Data Result diagrams: 04/27/18 05:16 04/27/18 05:16 - Radiology Data Radiology results: report reviewed (Computed tomography scan of the abdomen and pelvis and ultrasound revealed no acute abnormality.) <Hima Ross - Last Filed: 04/27/18 12:09> - Medical Decision Making The patient was seen and evaluated history is obtained from the patient Labs and imaging were ordered Labs reveal a psychosis, hypokalemia consistent with the patient not eating well Urinalysis with contamination, no obvious UTI CT and ultrasound were ordered Pelvic Exam with purulent discharge Patient with ALLERGIES to doxycycline and penicillin. IV clindamycin and gentamicin ordered (Sravanthi Pinto) Patient reevaluated and still has some mild to moderate discomfort left lower abdomen. Patient updated on results and plan. Case was discussed with Dr. Greene, who agrees with clindamycin and gentamicin and will consult. He does recommend medicine admission. Case was discussed in detail with Dr. Arguello , who will admit his patient. (Hima Ross) - Lab Data Lab Results 04/27/18 04/27/18 04/27/18 Range/Units 05:16 05:16 05:53 WBC 13.1 H (3.8-10.6) k/uL RBC 4.68 (3.80-5.40) m/uL Hgb 14.2 (11.4-16.0) gm/dL Hct 42.2 (34.0-46.0) % MCV 90.2 (80.0-100.0) fL MCH 30.4 (25.0-35.0) pg MCHC 33.7 (31.0-37.0) g/dL RDW 12.7 (11.5-15.5) % Plt Count 261 (150-450) k/uL Neutrophils % 81 % Lymphocytes % 11 % Monocytes % 4 % Eosinophils % 2 % Basophils % 0 % Neutrophils # 10.6 H (1.3-7.7) k/uL Lymphocytes # 1.5 (1.0-4.8) k/uL Monocytes # 0.6 (0-1.0) k/uL Eosinophils # 0.2 (0-0.7) k/uL Basophils # 0.0 (0-0.2) k/uL Sodium 140 (137-145) mmol/L Potassium 3.2 L (3.5-5.1) mmol/L Chloride 108 H (98-107) mmol/L Carbon Dioxide 21 L (22-30) mmol/L Anion Gap 11 mmol/L BUN 12 (7-17) mg/dL Creatinine 0.59 (0.52-1.04) mg/dL Est GFR (CKD-EPI)AfAm >90 (>60 ml/min/1.73 sqM) Est GFR (CKD-EPI)NonAf >90 (>60 ml/min/1.73 sqM) Glucose 101 H (74-99) mg/dL Calcium 9.1 (8.4-10.2) mg/dL Total Bilirubin 1.0 (0.2-1.3) mg/dL AST 43 H (14-36) U/L ALT 37 (9-52) U/L Alkaline Phosphatase 65 (38-126) U/L Total Protein 7.3 (6.3-8.2) g/dL Albumin 4.2 (3.5-5.0) g/dL Lipase 182 (23-300) U/L Urine Color Urine Appearance (Clear) Urine pH (5.0-8.0) Ur Specific [place] (1.001-1.035) Urine Protein (Negative) Urine Glucose (UA) (Negative) Urine Ketones (Negative) Urine Blood (Negative) Urine Nitrite (Negative) Urine Bilirubin (Negative) Urine Urobilinogen (<2.0) mg/dL Ur Leukocyte Esterase (Negative) Urine RBC (0-5) /hpf Urine WBC (0-5) /hpf Ur Squamous Epith Cells (0-4) /hpf Urine Bacteria (None) /hpf Urine Mucus (None) /hpf Urine HCG, Qual Not Detected (Not Detectd) 04/27/18 Range/Units 05:53 WBC (3.8-10.6) k/uL RBC (3.80-5.40) m/uL Hgb (11.4-16.0) gm/dL Hct (34.0-46.0) % MCV (80.0-100.0) fL MCH (25.0-35.0) pg MCHC (31.0-37.0) g/dL RDW (11.5-15.5) % Plt Count (150-450) k/uL Neutrophils % % Lymphocytes % % Monocytes % % Eosinophils % % Basophils % % Neutrophils # (1.3-7.7) k/uL Lymphocytes # (1.0-4.8) k/uL Monocytes # (0-1.0) k/uL Eosinophils # (0-0.7) k/uL Basophils # (0-0.2) k/uL Sodium (137-145) mmol/L Potassium (3.5-5.1) mmol/L Chloride (98-107) mmol/L Carbon Dioxide (22-30) mmol/L Anion Gap mmol/L BUN (7-17) mg/dL Creatinine (0.52-1.04) mg/dL Est GFR (CKD-EPI)AfAm (>60 ml/min/1.73 sqM) Est GFR (CKD-EPI)NonAf (>60 ml/min/1.73 sqM) Glucose (74-99) mg/dL Calcium (8.4-10.2) mg/dL Total Bilirubin (0.2-1.3) mg/dL AST (14-36) U/L ALT (9-52) U/L Alkaline Phosphatase (38-126) U/L Total Protein (6.3-8.2) g/dL Albumin (3.5-5.0) g/dL Lipase (23-300) U/L Urine Color Yellow Urine Appearance Cloudy H (Clear) Urine pH 6.0 (5.0-8.0) Ur Specific [place] 1.022 (1.001-1.035) Urine Protein Trace H (Negative) Urine Glucose (UA) Negative (Negative) Urine Ketones Negative (Negative) Urine Blood Trace H (Negative) Urine Nitrite Negative (Negative) Urine Bilirubin Negative (Negative) Urine Urobilinogen <2.0 (<2.0) mg/dL Ur Leukocyte Esterase Negative (Negative) Urine RBC 3 (0-5) /hpf Urine WBC 2 (0-5) /hpf Ur Squamous Epith Cells 18 H (0-4) /hpf Urine Bacteria Few H (None) /hpf Urine Mucus Many H (None) /hpf Urine HCG, Qual (Not Detectd) Disposition <Sravanthi Pinto - Last Filed: 04/27/18 08:22> Is patient prescribed a controlled substance at d/c from ED?: No Decision Time: 12:09 <Hima Ross - Last Filed: 04/27/18 12:09> Clinical Impression: PID (pelvic inflammatory disease) Disposition: ADMITTED IP TO THIS HOSP Referrals: Noel Arguello MD [Primary Care Provider] - 1-2 days
--- NOTE | 2018-04-27 07:01 | XR ---
INDICATION: Abdominal pain COMPARISON: None FINDINGS: A total of 2 AP upright views of the abdomen are provided. The bowel gas pattern is nonspecific and nonobstructive. There is no evidence of free air. There is no evidence of organomegaly or abnormal abdominal calcifications. Regional skeleton appears intact. IMPRESSION: Nonspecific, nonobstructive bowel gas pattern.
[2018-04-27] MEDS ORDERED: CLINDAMYCIN 900 MG in DEXTROSE 5% IN WATER 50 ML IVPB STA ×2 (07:37)
[2018-04-27] MEDS ORDERED: GENTAMICIN 300 MG in SODIUM CHLORIDE 0.9% 100 ML IVPB STA (07:38)
[2018-04-27] MEDS ORDERED: MORPHINE SULFATE 4 MG/ML SYRINGE IVP STA (08:03)
--- NOTE | 2018-04-27 09:03 | CT ---
EXAMINATION TYPE: CT abdomen pelvis w con DATE OF EXAM: 04/27/2018 HISTORY: Low abdominal/pelvic pain CT DLP: 935.8mGycm Automated Exposure Control for Dose Reduction was Utilized. CONTRAST: CT scan of the abdomen and pelvis is performed with IV Contrast, patient injected with 100 mL of Isov ue 300. COMPARISON: 02/03/2018 FINDINGS: LUNG BASES: Minimal bibasilar subsegmental dependent atelectasis is present. LIVER/GB: Attenuation of the hepatic parenchyma is slightly decreased however this does not meet crit eria for hepatic steatosis at this time. PANCREAS: SPLEEN: Very small splenule is seen inferior and anterior to the jena splenic hilum. ADRENALS: No significant abnormality is seen. KIDNEYS: Kidneys enhance symmetrically and are without hydronephrosis. BOWEL: The appendix is retrocecal, air-filled and within normal limits of size. There is narrowing of the distal ileum just proximal to the terminal ileum on coronal image 42 without proximal dilatation . This could represent small bowel spasm or incomplete stricture as there is no proximal dilatation. There does appear to be submucosal fat deposition within the distal ileum and few scattered nonenlarg ed right lower quadrant lymph nodes and therefore chronic inflammatory bowel disorder such as Crohn's disease is possible. Additionally there is very mild fat stranding changes around the cecum. No dila natasha bowel. UTERUS/ADNEXA: The uterus is grossly enlarged and heterogenous with a central hypoattenuated cavity m easuring up to 6.2 cm in anterior posterior dimension. Endometrium is ill-defined and is uncertain wh ether this represents a dilated endometrial cavity or lesion such as leiomyoma or leiomyosarcoma. Thi s is unlikely to represent the endometrial cavity as the appearance of a large heterogenous leiomyoma was seen on the prior exam of 02/03/2018. Additionally posteriorly left paracentrally there is a 2.2 cm peripherally hyper dense arterial enhancing lesion that could represent adnexal hemorrhagic cyst w ith scant amount of paraovarian fluid. LYMPH NODES: No greater than 1cm abdominal or pelvic lymph nodes are appreciated. OSSEOUS STRUCTURES: No significant abnormality is seen. IMPRESSION: 1. Interval change in the previous appearance of an enlarged fibroid uterus seen on the prior exam of 02/03/2018. There is interval enlargement of a fundal lesion with central necrosis measuring up to 6. 2 cm. Given the interval change this could represent a degenerating uterine leiomyoma or leiomyosarco ma. Further evaluation with pelvic MRI could be performed as well as gynecological consultation. 2. Peripherally arterial enhancing left adnexal lesion with scant amount of paraovarian free fluid ma y represent a hemorrhagic cyst and can be further assessed on ultrasound. 3. Findings suggesting mild changes of possible inflammatory bowel disease with terminal ileum nondis tention and submucosal fat deposition as well as scant fat stranding surrounding the cecum. Incomplet e distal ileal stricture versus small bowel spasm. Chronic inflammatory bowel disease such as Crohn's disease could be considered.
--- NOTE | 2018-04-27 10:02 | US ---
EXAMINATION TYPE: US transvaginal DATE OF EXAM: 04/27/2018 COMPARISON: US CLINICAL HISTORY: LLQ pelvic pain. Pelvic pain x 1 week ; uterine fibroid; TECHNIQUE: Transvaginal (TV). Date of LMP: approximately 2 weeks ago EXAM MEASUREMENTS: Uterus: 12.7 x 8.2 x 7.1 cm Endometrial Stripe: 0.8 cm Right Ovary: 2.8 x 1.7 x 2.0 cm Left Ovary: 3.0 x 2.3 x 1.6 cm 1. Uterus: Anteverted; enlarged; uterine fibroids seen with larger upper mid = 6.5 x 5.6 x 6.0cm and smaller upper left = 5.2 x 3.2 x 4.1cm; couple of Nabothian cysts in cervix with larger as complex c yst = 1.0 x 1.0 x 0.9cm. 2. Endometrium: thickness is wnl for Day 14 LMP 3. Right Ovary: multiple follicles with largest simple follicular cyst = 1.4 x 0.8 x 0.9cm 4. Left Ovary: small follicles seen with largest as complex involuting cyst = 1.6 x 1.7 x 1.4cm Spectral, color and waveform doppler imaging shows good arterial and venous flow within the ovaries ; there is no evidence for ovarian torsion. 5. Bilateral Adnexa: wnl 6. Posterior cul-de-sac: small amount of free fluid within = 2.2 x 1.9 x 0.6cm IMPRESSION: 1. Uterus is enlarged with multiple hypoechoic masses the largest measuring 6.5 cm most typical of ut erine fibroids. 2. Simple appearing 1.4 cm right ovarian cyst. 3. Complex mixed echogenic nodule measuring 1.7 cm left ovary. Nonspecific finding. Recommend a follo w-up exam in 6-8 weeks for resolution. If there is no resolution then consider ovarian neoplasms. 4. There is a complex appearing hypoechoic nodule within the cervix. Differential diagnosis would inc lude a complex nabothian cyst. Other etiologies are not excluded. Recommend correlation clinically an d if warranted a short-term ultrasound could be obtained to confirm stability. 5. Small amount of free fluid in the pelvis.
[2018-04-27] MEDS ORDERED: NALOXONE 0.4 MG/ML 1 ML VIAL IV PRN (12:09)
[2018-04-27] MEDS ORDERED: GENTAMICIN PER PHARMACY MISCELLANE PRN (12:15)
[2018-04-27] MEDS: SODIUM CHLORIDE 0.9% 1,000 ML IV SCH ×3 (13:12→22:55)
[2018-04-27 14:15] VITALS: BMI 31.8
[2018-04-27] MEDS: MORPHINE SULFATE 4 MG/ML SYRINGE IV PRN ×2 (14:26→18:14)
--- NOTE | 2018-04-27 17:03 | P.OBCN ---
History of Present Illness Consult date: 04/27/18 Reason for consult: pelvic infection Chief complaint: Acute pelvic pain, primarily left History of present illness: The patient is a 43-year-old 5 para 5005 who presents to the emergency room after approximately 12-24 hours of mild pelvic discomfort which increased significantly this morning. She reported that she did have chills but has not had any documented fever. In the emergency room, she was noted to have fairly significant cervical motion tenderness and left adnexal tenderness with an elevated white count in the diagnosis of possible pelvic inflammatory disease was made. On questioning, the patient is currently directly midcycle and her ultrasound is consistent with likely recent ovulation. As result, this pain may represent a hemorrhagic of ruptured ovarian cyst or ovulatory event. Of note she also has fibroids of which she has known. She does have a primary student life dean in the [facility] area, Dr. Concepcion. She recently underwent D& C in his office but does not know the results at this time. Obstetrical history: 5 para 5005 with 5 term vaginal deliveries without Occasions. The last was followed by a tubal ligation. Gynecologic history: Reportedly unremarkable with no history of any infections to include STDs. She has recently come out of a relationship in which she feels her partner may have been unfaithful and therefore potentially at risk for STDs. Review of Systems Review of systems is confined to history of present illness. Past Medical History Past Medical History: Asthma, Osteoarthritis (OA) Additional Past Medical History / Comment(s): DDD, HERNIATED DISK. UTERINE FIBROIDS History of Any Multi-Drug Resistant Organisms: None Reported Past Surgical History: Tubal Ligation Additional Past Surgical History / Comment(s): D&C Past Anesthesia/Blood Transfusion Reactions: No Reported Reaction Past Psychological History: No Psychological Hx Reported Smoking Status: Never smoker Past Alcohol Use History: Occasional Past Drug Use History: None Reported - Past Family History Father Family Medical History: Diabetes Mellitus, Renal Disease Mother Family Medical History: Hypertension Brother(s) Family Medical History: Cancer Additional Family Medical History / Comment(s): scizophrenia, cancer unknown Sister(s) Family Medical History: No Reported History Son(s) Additional Family Medical History / Comment(s): autism, ADD Medications and Allergies Home Medications Medication Instructions Recorded Confirmed Type Albuterol Sulfate [Proair Hfa] 1 - 2 puff INHALATION RT-Q6H PRN 02/03/18 History Cyclobenzaprine [Flexeril] 5 mg PO HS PRN 02/03/18 04/27/18 History Fluticasone/Vilanterol [Breo 1 inhalation PO DAILY 02/03/18 04/27/18 History Ellipta 100-25 Mcg Inhaler] Montelukast Sodium [Singulair] 10 mg PO HS 02/03/18 04/27/18 History Allergies Allergy/AdvReac Type Severity Reaction Status Date / Time doxycycline Allergy Nausea & Verified 04/27/18 14:05 Vomiting Penicillins Allergy Unknown Verified 04/27/18 14:05 Exam Vital Signs Temp Pulse Pulse Resp BP BP Pulse Ox 04/27/18 14:08 98.8 F 85 18 130/77 99 04/27/18 13:19 98.7 F 84 18 129/82 99 04/27/18 11:31 87 18 138/78 95 04/27/18 09:52 88 18 138/78 138 H 04/27/18 06:00 98 F 90 18 144/74 97 04/27/18 04:43 98.5 F 89 21 162/95 98 Intake and Output 04/27/18 04/27/18 04/27/18 06:59 14:59 22:59 Output Total 100 Balance -100 Output: Emesis 100 Other: # Emeses 1 Weight 79.379 kg 78.9 kg In general, this is a well-developed, well-nourished female in no acute distress. Her heart has a regular rhythm and rate without murmur. Her lungs are clear to auscultation bilaterally in all garrison. Her abdomen is nondistended, has normal active bowel sounds, soft, with mild left lower quadrant tenderness and a palpable firm mass above the pubic symphysis just left of midline probably consistent with a fibroid. Her extremities are without any cyanosis, clubbing, or edema and are nontender to palpation bilaterally. Bimanual pelvic examination demonstrates a roughly 12 week uterus with a large fundal fibroid which does represent a mass palpable in the left lower quadrant. Uterus is somewhat tender. The right adnexa has minimal tenderness without any apparent masses. Left adnexa them and states more tenderness but no apparent masses. Results Result Diagrams: 04/27/18 05:16 04/27/18 05:16 Abnormal Lab Results - Last 24 Hours (Table) 04/27/18 04/27/18 04/27/18 Range/Units 05:16 05:16 05:53 WBC 13.1 H (3.8-10.6) k/uL Neutrophils # 10.6 H (1.3-7.7) k/uL Potassium 3.2 L (3.5-5.1) mmol/L Chloride 108 H (98-107) mmol/L Carbon Dioxide 21 L (22-30) mmol/L Glucose 101 H (74-99) mg/dL AST 43 H (14-36) U/L Urine Appearance Cloudy H (Clear) Urine Protein Trace H (Negative) Urine Blood Trace H (Negative) Ur Squamous Epith Cells 18 H (0-4) /hpf Urine Bacteria Few H (None) /hpf Urine Mucus Many H (None) /hpf Microbiology - Last 24 Hours (Table) 04/27/18 07:30 Genital Culture - Preliminary Vaginal Assessment and Plan (1) Acute pelvic pain Current Visit: Yes Status: Acute Code(s): R10.2 - PELVIC AND PERINEAL PAIN SNOMED Code(s): 972274295 Plan: Given the presentation, I think it is reasonable to continue with IV prophylaxis with antibiotics until afebrile for 24 hours and clinically improved. I am not certain that she actually has any infection at this time as the laboratory findings and sonographic findings are consistent with a possible ruptured hemorrhagic ovulatory event. In either case, continued antibody prophylaxis is of no harm. Should she improve in the next 24 hours, I would send her home but continue oral antibiotics in the outpatient setting for approximately 7 days. One reasonable option might be Levaquin as the patient is ALLERGIC to doxycycline. I would allow her to continue to have a regular diet and ambulate routinely. I discussed with her all of my considerations and will continue to follow that perhaps it some distance. Thanks for the consult and call if you have any further questions or concerns.
[2018-04-27] MEDS: ONDANSETRON 4 MG/2 ML VIAL IVP PRN ×2 (17:05→22:45)
[2018-04-27] MEDS ORDERED: GENTAMICIN TROUGH DUE 1 EACH MISC MISCELLANE ONE (18:00)
[2018-04-27] MEDS: CLINDAMYCIN 600 MG in DEXTROSE 5% IN WATER 50 ML IVPB SCH ×2 (18:15)
[2018-04-27] MEDS: GENTAMICIN 150 MG in SODIUM CHLORIDE 0.9% 100 ML IVPB SCH (22:35)
[2018-04-28] MEDS: CLINDAMYCIN 600 MG in DEXTROSE 5% IN WATER 50 ML IVPB SCH ×10 (00:16→23:54)
[2018-04-28] MEDS: MORPHINE SULFATE 4 MG/ML SYRINGE IV PRN ×5 (00:17→21:49)
[2018-04-28] MEDS ORDERED: KETOROLAC 30 MG/ML 1 ML VIAL IVP STA (04:08)
[2018-04-28] MEDS: ONDANSETRON 4 MG/2 ML VIAL IVP PRN ×2 (04:39→23:53)
[2018-04-28] MEDS: GENTAMICIN 150 MG in SODIUM CHLORIDE 0.9% 100 ML IVPB SCH ×3 (06:44→21:42)
--- NOTE | 2018-04-28 07:50 | P.HPIM ---
History of Present Illness H&P Date: 04/28/18 Chief Complaint: Pelvic pain. This is a 43-year-old female who is who was complaining of two- day history of worsening pelvic pain with crampiness. No discharge is noted. The patient states mild constipation. Evaluation emergency room did show possible PID versus hemorrhagic cyst rupture. The patient has significant diffuse suprapubic and pelvic pain today. Her has helped the patient. No sniffing chest pain or shortness breath no fever or chills stated. The patient has been admitted for appropriate evaluation. Review of Systems Constitutional: Denies chills, Denies fever Eyes: denies blurred vision, denies pain Ears, nose, mouth and throat: Denies headache, Denies sore throat Cardiovascular: Denies chest pain, Denies shortness of breath Respiratory: Denies cough Gastrointestinal: Reports abdominal pain Genitourinary: Reports pelvic pain, Denies dysuria, Denies hematuria Musculoskeletal: Denies myalgias Past Medical History Past Medical History: Asthma, Osteoarthritis (OA) Additional Past Medical History / Comment(s): DDD, HERNIATED DISK. UTERINE FIBROIDS History of Any Multi-Drug Resistant Organisms: None Reported Past Surgical History: Tubal Ligation Additional Past Surgical History / Comment(s): D&C Past Anesthesia/Blood Transfusion Reactions: No Reported Reaction Past Psychological History: No Psychological Hx Reported Smoking Status: Never smoker Past Alcohol Use History: Occasional Past Drug Use History: None Reported - Past Family History Father Family Medical History: Diabetes Mellitus, Renal Disease Mother Family Medical History: Hypertension Brother(s) Family Medical History: Cancer Additional Family Medical History / Comment(s): scizophrenia, cancer unknown Sister(s) Family Medical History: No Reported History Son(s) Additional Family Medical History / Comment(s): autism, ADD Medications and Allergies Home Medications Medication Instructions Recorded Confirmed Type Albuterol Sulfate [Proair Hfa] 1 - 2 puff INHALATION RT-Q6H PRN 02/03/18 History Cyclobenzaprine [Flexeril] 5 mg PO HS PRN 02/03/18 04/27/18 History Fluticasone/Vilanterol [Breo 1 inhalation PO DAILY 02/03/18 04/27/18 History Ellipta 100-25 Mcg Inhaler] Montelukast Sodium [Singulair] 10 mg PO HS 02/03/18 04/27/18 History Allergies Allergy/AdvReac Type Severity Reaction Status Date / Time doxycycline Allergy Nausea & Verified 04/27/18 14:05 Vomiting Penicillins Allergy Unknown Verified 04/27/18 14:05 Physical Exam Vitals: Vital Signs Temp Pulse Pulse Resp BP BP Pulse Ox 04/28/18 04:25 98.7 F 83 18 121/78 97 04/28/18 00:22 98.9 F 86 18 112/74 96 04/27/18 20:07 98.6 F 78 20 128/84 04/27/18 14:08 98.8 F 85 18 130/77 99 04/27/18 13:19 98.7 F 84 18 129/82 99 04/27/18 11:31 87 18 138/78 95 04/27/18 09:52 88 18 138/78 138 H Intake and Output 04/27/18 04/28/18 04/28/18 22:59 06:59 14:59 Output Total 1160 200 Balance -1160 -200 Output: Urine 1060 200 Emesis 100 Other: # Voids 1 1 # Emeses 1 - Constitutional General appearance: no acute distress - EENT Eyes: EOMI - Neck Neck: no lymphadenopathy - Respiratory Respiratory: bilateral: CTA - Cardiovascular Rhythm: regular Heart sounds: normal: S1, S2 Abnormal Heart Sounds: no S3 Gallop - Gastrointestinal General gastrointestinal: soft, no splenomegaly, tenderness - Psychiatric Psychiatric: A&O x's 3 Results CBC & Chem 7: 04/27/18 05:16 04/27/18 05:16 Labs: Microbiology - Last 24 Hours (Table) 04/27/18 07:30 Gram Stain - Final Vaginal Genital Culture - Preliminary Thrombosis Risk Factor Assmnt - Choose All That Apply Any of the Below Risk Factors Present?: Yes Each Factor Represents 1 point: Age 41-60 years, Obesity (BMI >25) Thrombosis Risk Factor Assessment Total Risk Factor Score: 2 Thrombosis Risk Factor Assessment Level: Low Risk Assessment and Plan (1) Acute pelvic pain Current Visit: Yes Status: Acute Code(s): R10.2 - PELVIC AND PERINEAL PAIN SNOMED Code(s): 208972449 (2) PID (pelvic inflammatory disease) Current Visit: Yes Status: Acute Code(s): N73.9 - FEMALE PELVIC INFLAMMATORY DISEASE, UNSPECIFIED SNOMED Code(s): 783482484 (3) Ovarian cyst Current Visit: Yes Status: Acute Code(s): N83.209 - UNSPECIFIED OVARIAN CYST , UNSPECIFIED SIDE SNOMED Code(s): 00725771 Plan: At this time, I would treat symptomatically for her pain. Continue antibiotic treatment. She did respond well to Toradol. We'll try this today. Otherwise, check CBC and CMP in a.m. Despite discharge in next 24-40 hours if the patient improves in the appropriate trajectory. Appreciate gynecologic consultation.
[2018-04-28] MEDS: PANTOPRAZOLE 40 MG/10 ML VIAL IVP SCH (08:24)
--- NOTE | 2018-04-28 08:24 | P.PN ---
Subjective Progress Note Date: 04/28/18 The patient reports she has had some fairly significant pain overnight which is still present today. She did have some nausea yesterday as well without any vomiting. Otherwise no significant changes, she is tolerating regular diet. Objective - Vital Signs Vital signs: Vital Signs Temp 98.7 F 04/28/18 04:25 Pulse 83 04/28/18 04:25 Resp 18 04/28/18 04:25 BP 121/78 04/28/18 04:25 Pulse Ox 97 04/28/18 04:25 Intake & Output 04/27/18 04/28/18 04/28/18 18:59 06:59 18:59 Output Total 400 960 Balance -400 -960 Weight 78.9 kg Output: Urine 300 960 Emesis 100 Other: # Voids 1 1 # Emeses 1 - Exam In general, this is a well-developed, well-nourished female in no acute distress. Her abdomen is nondistended, is soft, with mild suprapubic and left lower quadrant tenderness which is similar to yesterday's evaluation, no significant change. Her extremities are without any cyanosis, clubbing, or edema and are nontender to palpation bilaterally. - Labs CBC & Chem 7: 04/27/18 05:16 04/27/18 05:16 Labs: Microbiology - Last 24 Hours (Table) 04/27/18 07:30 Gram Stain - Final Vaginal Genital Culture - Preliminary Assessment and Plan (1) Acute pelvic pain Current Visit: Yes Status: Acute Code(s): R10.2 - PELVIC AND PERINEAL PAIN SNOMED Code(s): 220893416 Plan: Continue with plan as outlined above. I would continue broad-spectrum antibiotics to cover for potential infection and also feel that nonsteroidal anti-inflammatories or a good choice for pain control should the source of the pain be hemorrhagic cyst instead. She will need some moderate clinical improvement prior to considering discharge.
[2018-04-28] MEDS ORDERED: GENTAMICIN 360 MG in SODIUM CHLORIDE 0.9% 100 ML IVPB SCH (09:00)
[2018-04-28] MEDS: KETOROLAC 30 MG/ML 1 ML VIAL IVP SCH ×3 (11:30→23:53)
[2018-04-28] MEDS: SODIUM CHLORIDE 0.9% 1,000 ML IV SCH (11:33)
[2018-04-28] MEDS ORDERED: MAGNESIUM HYDROXIDE 2,400 MG/10 ML CUP PO PRN (17:05)
[2018-04-28] MEDS: DOCUSATE 100 MG CAP PO PRN (18:24)
[2018-04-28] MEDS ORDERED: TEMAZEPAM 30 MG CAP PO PRN (21:00)
[2018-04-28] MEDS ORDERED: TEMAZEPAM 15 MG CAP PO PRN (23:47)
[2018-04-29] MEDS: SODIUM CHLORIDE 0.9% 1,000 ML IV SCH ×3 (03:50→14:44)
[2018-04-29] MEDS ORDERED: GENTAMICIN TROUGH DUE 1 EACH MISC MISCELLANE ONE (05:30)
[2018-04-29] MEDS: CLINDAMYCIN 600 MG in DEXTROSE 5% IN WATER 50 ML IVPB SCH ×4 (05:46→11:51)
[2018-04-29] MEDS: KETOROLAC 30 MG/ML 1 ML VIAL IVP SCH ×2 (05:46→11:50)
[2018-04-29] MEDS: GENTAMICIN 150 MG in SODIUM CHLORIDE 0.9% 100 ML IVPB SCH ×2 (05:55→15:38)
[2018-04-29 05:57] LABS: HCT 37.7 % (34.0-46.0); HGB 12.5 gm/dL (11.4-16.0); MCH 30.8 pg (25.0-35.0); MCHC 33.1 g/dL (31.0-37.0); MCV 93.1 fL (80.0-100.0); Mean Platelet Volume 7.4; Platelet Count 201 k/uL (150-450); RBC 4.05 m/uL (3.80-5.40); WBC 9.6 k/uL (3.8-10.6)
[2018-04-29 06:19] LABS: ALT 41 U/L (9-52); AST 39 U/L (14-36); Albumin 3.1 g/dL (3.5-5.0); Alkaline Phosphatase 61 U/L (38-126); Anion Gap 6 mmol/L; Blood Urea Nitrogen 11 mg/dL (7-17); Calcium 8.1 mg/dL (8.4-10.2); Carbon Dioxide 21 mmol/L (22-30); Chloride 112 mmol/L (98-107); Glucose 85 mg/dL (74-99); Potassium 4.1 mmol/L (3.5-5.1); Sodium 139 mmol/L (137-145); Total Bilirubin 0.5 mg/dL (0.2-1.3); Total Protein 5.7 g/dL (6.3-8.2)
[2018-04-29 08:16] VITALS: RESP 18
[2018-04-29] MEDS: PANTOPRAZOLE 40 MG/10 ML VIAL IVP SCH (08:30)
[2018-04-29] MEDS: DOCUSATE 100 MG CAP PO PRN (08:30)
--- NOTE | 2018-04-29 08:45 | P.PN ---
Subjective Progress Note Date: 04/29/18 The patient reports significant clinical improvement since yesterday. Her pain is now very manageable with oral pain medications. She no longer is having any significant nausea. She has remained afebrile as well. Tolerating regular diet without difficulty. Objective - Vital Signs Vital signs: Vital Signs Temp 98.4 F 04/29/18 08:05 Pulse 82 04/29/18 08:05 Resp 18 04/29/18 08:05 BP 106/68 04/29/18 08:05 Pulse Ox 97 04/29/18 08:05 Intake & Output 04/28/18 04/29/18 04/29/18 18:59 06:59 18:59 Intake Total 250 Balance 250 Intake: Oral 250 Other: # Voids 2 1 1 - Exam In general, this is a well-developed, well-nourished female in no acute distress. Her abdomen is nondistended, soft, with minimal tenderness significantly improved in the left lower quadrant compared to yesterday's exam and time of admission. There is no guarding or rebound. Otherwise there is no masses or any other abdominal findings. Her extremities are without any cyanosis, clubbing, or edema and are nontender to palpation bilaterally. Pelvic examination is deferred. - Labs CBC & Chem 7: 04/29/18 05:28 04/29/18 05:28 Labs: Abnormal Lab Results - Last 24 Hours (Table) 04/29/18 Range/Units 05:28 Chloride 112 H (98-107) mmol/L Carbon Dioxide 21 L (22-30) mmol/L Calcium 8.1 L (8.4-10.2) mg/dL AST 39 H (14-36) U/L Total Protein 5.7 L (6.3-8.2) g/dL Albumin 3.1 L (3.5-5.0) g/dL Microbiology - Last 24 Hours (Table) 04/27/18 13:04 Blood Culture - Preliminary Blood No Growth after 24 hours 04/27/18 07:30 Gram Stain - Final Vaginal Genital Culture - Preliminary Assessment and Plan (1) Acute pelvic pain Current Visit: Yes Status: Acute Code(s): R10.2 - PELVIC AND PERINEAL PAIN SNOMED Code(s): 842688717 Plan: I agree with the discharged home today using nonsteroidal anti-inflammatories as the primary e business manager for pain. She may be continued on oral antibiotics but I suspect the etiology of her pain was actually hemorrhagic cyst. Nevertheless covered with antibiotics is warranted. She does have a primary PLASTIC PRESS MOLDER with him she is established at [facility], Dr. Concepcion, and actually had a procedure done by him in the recent past with no follow-up yet. I recommended she follow up with him and he can request a copy of her records for this admission should he choose. If she wishes she may follow up with me in the outpatient setting as an alternative. I did discuss with her that she does have a fibroid uterus which is of little concern as long as her cycles remain manageable.
[2018-04-29 12:31] VITALS: BP 125/83; PULSE 85; TEMP 99.5
[2018-04-29 15:59] LABS: N. gonorrhoeae,PCR Negative (Neg,Equiv); Neisseria Source Endocervical
[2018-04-29 16:00] LABS: C. trachomatis,PCR Negative (Neg,Equiv); Chlamydia trachomatis Source Endocervical
[2018-04-30] MEDS ORDERED: PANTOPRAZOLE 40 MG TABLET PO SCH (07:30)
== END 2018-04-29 15:38 | disposition home or self-care (01) | DRG 761 ==
LOC: EC 04:39 → 6PED 12:10
PROVIDERS: ADMIT Family Medicine; ATTEND Family Medicine
DX: N83.202 Unspecified ovarian cyst, left side (principal); N83.201 Unspecified ovarian cyst, right side; N73.9 Female pelvic inflammatory disease, unspecified; D25.9 Leiomyoma of uterus, unspecified; E87.6 Hypokalemia; J45.909 Unspecified asthma, uncomplicated; K59.00 Constipation, unspecified; Z82.49 Family history of ischemic heart disease and other diseases of the circulatory system; Z83.3 Family history of diabetes mellitus; Z88.1 Allergy status to other antibiotic agents; Z88.0 Allergy status to penicillin; M19.90 Unspecified osteoarthritis, unspecified site; Z81.8 Family history of other mental and behavioral disorders; Z84.1 Family history of disorders of kidney and ureter; Z80.9 Family history of malignant neoplasm, unspecified; Z79.899 Other long term (current) drug therapy
CPT/HCPCS: 36415; 74018; 74177; 76830; 80053; 80170; 81001; 81025; 83605; 83690; 85025; 85027; 87040; 87070; 87205; 87491; 87591; 93975; 96361; 96365; 96366; 96367; 96375; 96376; 99285

== ENCOUNTER 2019-08-11 16:56 | Emergency (ER) | payer BC, OTHER ==
[2019-08-11 17:02] VITALS: RESP 18
[2019-08-11] MEDS ORDERED: AZITHROMYCIN 500 MG in SODIUM CHLORIDE 0.9% 250 ML IVPB STA (17:18)
[2019-08-11] MEDS ORDERED: IPRATROPIUM-ALBUTEROL 3 ML NEB INHALATION STA (17:18)
[2019-08-11] MEDS ORDERED: SODIUM CHLORIDE 0.9% 1,000 ML IV STA ×2 (17:18→19:09)
[2019-08-11] MEDS ORDERED: methylPREDNISolone SOD SUCCI 125 MG/2 ML VIAL IV STA (17:18)
--- NOTE | 2019-08-11 17:18 | ED ---
SOB HPI - General Chief Complaint: Shortness of Breath Stated Complaint: NIDHI Time Seen by Provider: 08/11/19 17:05 Source: patient, RN notes reviewed, old records reviewed Mode of arrival: ambulatory Limitations: no limitations - History of Present Illness Initial Comments: This is a 44-year-old female here she presents for evaluation of shortness breat h cough or congestion not feeling well. History of asthma having significant exacerbation. Patient has otherwise no recent travel history no sick contacts she has been evaluated outpatient basis mL express no improvement of symptoms despite treatment. Patient with cough and congestion mainly shortness of breath especially with activity or exertion. She also has some episodic fevers and chills occasional sweating. MD Complaint: shortness of breath, cough (History of asthma), "asthma attack" -: days(s) Severity: mild Severity scale (1-10): 3 Quality: aching Consistency: intermittent Improves With: rest Worsens With: exertion Known History Of: COPD, asthma Context: recent URI Associated Symptoms: pain with inspiration, cough Treatments Prior to Arrival: none - Related Data Home Medications Medication Instructions Recorded Confirmed Albuterol Sulfate [Proair Hfa] 1 - 2 puff INHALATION RT-Q6H PRN 02/03/18 04/27/18 Cyclobenzaprine [Flexeril] 5 mg PO HS PRN 02/03/18 04/27/18 Fluticasone/Vilanterol [Breo 1 inhalation PO DAILY 02/03/18 04/27/18 Ellipta 100-25 Mcg Inhaler] Montelukast Sodium [Singulair] 10 mg PO HS 02/03/18 04/27/18 Previous Rx's Medication Instructions Recorded Clindamycin HCl 300 mg PO Q8HR 7 Days #21 cap 04/29/18 Docusate [Colace] 100 mg PO DAILY PRN #15 cap 04/29/18 HYDROcodone/APAP 5-325MG [[place] 1 tab PO Q6HR PRN 7 Days #28 tab 04/29/18 5-325] Ibuprofen 600 mg PO TID #21 tablet 04/29/18 Magnesium Hydroxide [Milk of 2,400 mg PO BID PRN ml 04/29/18 Magnesia Concentrate] Allergies Allergy/AdvReac Type Severity Reaction Status Date / Time doxycycline Allergy Nausea & Verified 08/11/19 17:02 Vomiting Penicillins Allergy Unknown Verified 08/11/19 17:02 Review of Systems ROS Statement: Those systems with pertinent positive or pertinent negative responses have been documented in the HPI. ROS Other: All systems not noted in ROS Statement are negative. Past Medical History Past Medical History: Asthma, Osteoarthritis (OA) Additional Past Medical History / Comment(s): DDD, HERNIATED DISK. UTERINE FIBROIDS History of Any Multi-Drug Resistant Organisms: None Reported Past Surgical History: Tubal Ligation Additional Past Surgical History / Comment(s): D&C Past Anesthesia/Blood Transfusion Reactions: No Reported Reaction Past Psychological History: No Psychological Hx Reported Smoking Status: Never smoker Past Alcohol Use History: Occasional Past Drug Use History: None Reported - Past Family History Father Family Medical History: Diabetes Mellitus, Renal Disease Mother Family Medical History: Hypertension Brother(s) Family Medical History: Cancer Additional Family Medical History / Comment(s): scizophrenia, cancer unknown Sister(s) Family Medical History: No Reported History Son(s) Additional Family Medical History / Comment(s): autism, ADD General Exam Limitations: no limitations Course Vital Signs 08/11/19 08/11/19 08/11/19 16:59 17:40 17:56 Temperature 98.5 F Pulse Rate 98 97 105 H Respiratory 18 Rate Blood Pressure 138/91 O2 Sat by Pulse 99 Oximetry 08/11/19 08/11/19 18:41 19:50 Temperature 98.3 F 99.2 F Pulse Rate 109 H 96 Respiratory 18 18 Rate Blood Pressure 139/94 141/86 O2 Sat by Pulse 98 96 Oximetry - Reevaluation(s) Reevaluation #1: 08/11/19 20:18 Medical record is reviewed Reevaluation #2: 08/11/19 20:18 Symptoms here and the ER are improved patient feels okay for discharge home Medical Decision Making - Medical Decision Making 44 female with asthma exacerbation complicated with influenza. Patient be treated for asthma exacerbation and influenza and will be discharged home - Lab Data Result diagrams: 08/11/19 17:34 08/11/19 17:34 Lab Results 08/11/19 08/11/19 08/11/19 Range/Units 17:34 17:34 17:34 WBC (3.8-10.6) k/uL RBC (3.80-5.40) m/uL Hgb (11.4-16.0) gm/dL Hct (34.0-46.0) % MCV (80.0-100.0) fL MCH (25.0-35.0) pg MCHC (31.0-37.0) g/dL RDW (11.5-15.5) % Plt Count (150-450) k/uL Neutrophils % % Lymphocytes % % Monocytes % % Eosinophils % % Basophils % % Neutrophils # (1.3-7.7) k/uL Lymphocytes # (1.0-4.8) k/uL Monocytes # (0-1.0) k/uL Eosinophils # (0-0.7) k/uL Basophils # (0-0.2) k/uL PT 9.6 (9.0-12.0) sec INR 0.9 (<1.2) APTT 23.8 (22.0-30.0) sec D-Dimer 0.44 (<0.60) mg/L FEU Sodium 138 (137-145) mmol/L Potassium 4.4 (3.5-5.1) mmol/L Chloride 109 H (98-107) mmol/L Carbon Dioxide 16 L (22-30) mmol/L Anion Gap 13 mmol/L BUN 11 (7-17) mg/dL Creatinine 0.50 L (0.52-1.04) mg/dL Est GFR (CKD-EPI)AfAm >90 (>60 ml/min/1.73 sqM) Est GFR (CKD-EPI)NonAf >90 (>60 ml/min/1.73 sqM) Glucose 110 H (74-99) mg/dL Plasma Lactic Acid Mendel (0.7-2.0) mmol/L Calcium 8.9 (8.4-10.2) mg/dL Magnesium 2.2 (1.6-2.3) mg/dL Total Bilirubin 0.5 (0.2-1.3) mg/dL AST 30 (14-36) U/L ALT 24 (4-34) U/L Alkaline Phosphatase 71 (38-126) U/L Troponin I (0.000-0.034) ng/mL NT-Pro-B Natriuret Pep 55 pg/mL Total Protein 7.9 (6.3-8.2) g/dL Albumin 4.7 (3.5-5.0) g/dL Influenza Type A RNA (Not Detectd) Influenza Type B (PCR) (Not Detectd) 08/11/19 08/11/19 08/11/19 Range/Units 17:34 17:34 17:34 WBC 7.6 (3.8-10.6) k/uL RBC 5.16 (3.80-5.40) m/uL Hgb 15.8 (11.4-16.0) gm/dL Hct 48.3 H (34.0-46.0) % MCV 93.7 (80.0-100.0) fL MCH 30.6 (25.0-35.0) pg MCHC 32.6 (31.0-37.0) g/dL RDW 12.1 (11.5-15.5) % Plt Count 245 (150-450) k/uL Neutrophils % 90 % Lymphocytes % 5 % Monocytes % 2 % Eosinophils % 2 % Basophils % 0 % Neutrophils # 6.8 (1.3-7.7) k/uL Lymphocytes # 0.4 L (1.0-4.8) k/uL Monocytes # 0.1 (0-1.0) k/uL Eosinophils # 0.1 (0-0.7) k/uL Basophils # 0.0 (0-0.2) k/uL PT (9.0-12.0) sec INR (<1.2) APTT (22.0-30.0) sec D-Dimer (<0.60) mg/L FEU Sodium (137-145) mmol/L Potassium (3.5-5.1) mmol/L Chloride (98-107) mmol/L Carbon Dioxide (22-30) mmol/L Anion Gap mmol/L BUN (7-17) mg/dL Creatinine (0.52-1.04) mg/dL Est GFR (CKD-EPI)AfAm (>60 ml/min/1.73 sqM) Est GFR (CKD-EPI)NonAf (>60 ml/min/1.73 sqM) Glucose (74-99) mg/dL Plasma Lactic Acid Mendel 1.1 (0.7-2.0) mmol/L Calcium (8.4-10.2) mg/dL Magnesium (1.6-2.3) mg/dL Total Bilirubin (0.2-1.3) mg/dL AST (14-36) U/L ALT (4-34) U/L Alkaline Phosphatase (38-126) U/L Troponin I (0.000-0.034) ng/mL NT-Pro-B Natriuret Pep pg/mL Total Protein (6.3-8.2) g/dL Albumin (3.5-5.0) g/dL Influenza Type A RNA Detected H (Not Detectd) Influenza Type B (PCR) Not Detected (Not Detectd) 08/11/19 Range/Units 17:34 WBC (3.8-10.6) k/uL RBC (3.80-5.40) m/uL Hgb (11.4-16.0) gm/dL Hct (34.0-46.0) % MCV (80.0-100.0) fL MCH (25.0-35.0) pg MCHC (31.0-37.0) g/dL RDW (11.5-15.5) % Plt Count (150-450) k/uL Neutrophils % % Lymphocytes % % Monocytes % % Eosinophils % % Basophils % % Neutrophils # (1.3-7.7) k/uL Lymphocytes # (1.0-4.8) k/uL Monocytes # (0-1.0) k/uL Eosinophils # (0-0.7) k/uL Basophils # (0-0.2) k/uL PT (9.0-12.0) sec INR (<1.2) APTT (22.0-30.0) sec D-Dimer (<0.60) mg/L FEU Sodium (137-145) mmol/L Potassium (3.5-5.1) mmol/L Chloride (98-107) mmol/L Carbon Dioxide (22-30) mmol/L Anion Gap mmol/L BUN (7-17) mg/dL Creatinine (0.52-1.04) mg/dL Est GFR (CKD-EPI)AfAm (>60 ml/min/1.73 sqM) Est GFR (CKD-EPI)NonAf (>60 ml/min/1.73 sqM) Glucose (74-99) mg/dL Plasma Lactic Acid Mendel (0.7-2.0) mmol/L Calcium (8.4-10.2) mg/dL Magnesium (1.6-2.3) mg/dL Total Bilirubin (0.2-1.3) mg/dL AST (14-36) U/L ALT (4-34) U/L Alkaline Phosphatase (38-126) U/L Troponin I <0.012 (0.000-0.034) ng/mL NT-Pro-B Natriuret Pep pg/mL Total Protein (6.3-8.2) g/dL Albumin (3.5-5.0) g/dL Influenza Type A RNA (Not Detectd) Influenza Type B (PCR) (Not Detectd) - EKG Data -: EKG Interpreted by Me (EKG shows sinus rhythm of 92, NE 154, QRS 60, QTC 4:30) - Radiology Data Radiology results: report reviewed (Chest x-ray is negative for acute disease), image reviewed Disposition Clinical Impression: Asthma with acute exacerbation, Influenza A Disposition: HOME SELF-CARE Condition: Good Instructions (If sedation given, give patient instructions): Asthma (ED), Influenza (ED) Is patient prescribed a controlled substance at d/c from ED?: No Referrals: Madeleine Pendleton MD [Primary Care Provider] - 1-2 days
[2019-08-11 17:51] LABS: Basophils % (A) 0 %; Eosinophils # (A) 0.1 k/uL (0-0.7); Eosinophils % (A) 2 %; HCT 48.3 % (34.0-46.0); HGB 15.8 gm/dL (11.4-16.0); Lymphocytes # (A) 0.4 k/uL (1.0-4.8); Lymphocytes % (A) 5 %; MCH 30.6 pg (25.0-35.0); MCHC 32.6 g/dL (31.0-37.0); MCV 93.7 fL (80.0-100.0); Mean Platelet Volume 7.6; Monocytes # (A) 0.1 k/uL (0-1.0); Monocytes % (A) 2 %; Neutrophils # (A) 6.8 k/uL (1.3-7.7); Neutrophils % (A) 90 %; Platelet Count 245 k/uL (150-450); RBC 5.16 m/uL (3.80-5.40); RDW 12.1 % (11.5-15.5); WBC 7.6 k/uL (3.8-10.6)
[2019-08-11 18:06] LABS: D-Dimer 0.44 mg/L FEU (<0.60); INR 0.9 (<1.2); Partial Thromboplastin Time 23.8 sec (22.0-30.0); Prothrombin Time 9.6 sec (9.0-12.0)
[2019-08-11 18:08] LABS: ALT 24 U/L (4-34); AST 30 U/L (14-36); African American GFR (CKD) >90 (>60 ml/min/1.73 sqM); Albumin 4.7 g/dL (3.5-5.0); Alkaline Phosphatase 71 U/L (38-126); Anion Gap 13 mmol/L; Blood Urea Nitrogen 11 mg/dL (7-17); Calcium 8.9 mg/dL (8.4-10.2); Carbon Dioxide 16 mmol/L (22-30); Chloride 109 mmol/L (98-107); Glucose 110 mg/dL (74-99); Magnesium 2.2 mg/dL (1.6-2.3); Non-African American GFR(CKD) >90 (>60 ml/min/1.73 sqM); Potassium 4.4 mmol/L (3.5-5.1); Sodium 138 mmol/L (137-145); Total Bilirubin 0.5 mg/dL (0.2-1.3); Total Protein 7.9 g/dL (6.3-8.2)
--- NOTE | 2019-08-11 18:19 | XR ---
EXAMINATION TYPE: XR chest 2V DATE OF EXAM: 08/11/2019 COMPARISON: 02/23/2017 HISTORY: Chest pain and difficulty breathing. TECHNIQUE: FINDINGS: Heart is normal. Lungs are clear. Diaphragm is normal. Bony thorax appears normal. IMPRESSION: Normal chest. No change.
[2019-08-11] MEDS ORDERED: ACETAMINOPHEN TAB 500 MG TAB PO STA (18:25)
[2019-08-11] MEDS ORDERED: KETOROLAC 30 MG/ML 1 ML VIAL IVP STA (18:25)
[2019-08-11 19:51] VITALS: TEMP 99.2
[2019-08-11 20:44] VITALS: BP 145/91; PULSE 92
== END 2019-08-11 20:43 | disposition home or self-care (01) ==
LOC: EC 16:56
DX: J10.1 Influenza due to other identified influenza virus with other respiratory manifestations (principal); J45.901 Unspecified asthma with (acute) exacerbation; Z79.51 Long term (current) use of inhaled steroids; Z88.0 Allergy status to penicillin; Z88.1 Allergy status to other antibiotic agents
CPT/HCPCS: 99285; 96365; 96375 ×2; 96361; 36415; 94640; 93005; 85379; 83880; 80053; 83605; 83735; 84484; 85025; 85610; 85730; 87502; 71046; J2930; J0456; J1885

== ENCOUNTER 2019-11-12 13:48 | Emergency (ER) | payer OTHER ==
[2019-11-12] MEDS ORDERED: KETOROLAC 60 MG/2 ML VIAL IM STA (14:22)
[2019-11-12 14:25] VITALS: BP 136/91; PULSE 73; RESP 18; TEMP 99
--- NOTE | 2019-11-12 14:36 | ED ---
Back Pain HPI - General Chief Complaint: Back Pain/Injury Stated Complaint: Back pain Time Seen by Provider: 11/12/19 14:05 Source: patient - History of Present Illness Initial Comments: Patient is a 44-year-old female presenting to emergency Department with complaints of lower back pain 2 days. Patient states she has a history of herniated disks in the lumbar area. Patient states she days ago that she was doing a lot of yard work, pushing and pulling and started having some soreness later that night. Patient states the next day and for most of this morning her pain has been increasing. She is having trouble twisting and turning and rolling over in bed. Patient states she has been trying to take ibuprofen as well as a muscle relaxer with only mild relief of symptoms. She denies any falls or any other trauma. She denies any recent fever, chills. She does admit to some mild dysuria, increasing frequency and was concerned she may have a UTI which is causing her back pain. Patient denies any chest pain, short of breath, numbness and tingling into her lower extremities, bowel or bladder incontinence. She has no further complaints at this time. Upon arrival to the ER, her vital signs are stable. - Related Data Home Medications Medication Instructions Recorded Confirmed Albuterol Sulfate [Proair Hfa] 1 - 2 puff INHALATION RT-Q6H PRN 02/03/18 04/27/18 Cyclobenzaprine [Flexeril] 5 mg PO HS PRN 02/03/18 04/27/18 Fluticasone/Vilanterol [Breo 1 inhalation PO DAILY 02/03/18 04/27/18 Ellipta 100-25 Mcg Inhaler] Montelukast Sodium [Singulair] 10 mg PO HS 02/03/18 04/27/18 Previous Rx's Medication Instructions Recorded Clindamycin HCl 300 mg PO Q8HR 7 Days #21 cap 04/29/18 Docusate [Colace] 100 mg PO DAILY PRN #15 cap 04/29/18 HYDROcodone/APAP 5-325MG [[place] 1 tab PO Q6HR PRN 7 Days #28 tab 04/29/18 5-325] Ibuprofen 600 mg PO TID #21 tablet 04/29/18 Magnesium Hydroxide [Milk of 2,400 mg PO BID PRN ml 04/29/18 Magnesia Concentrate] Albuterol Nebulized [Ventolin 2.5 mg INHALATION Q4H PRN #25 nebu 08/11/19 Nebulized] Albuterol Sulfate [Proair Hfa] 1 - 2 puff INHALATION Q4H PRN #1 08/11/19 inhaler Oseltamivir [Tamiflu] 75 mg PO Q12HR #10 cap 08/11/19 predniSONE 50 mg PO DAILY #5 tab 08/11/19 Cephalexin [Keflex] 500 mg PO BID 5 Days #9 cap 11/12/19 Cyclobenzaprine [Flexeril] 5 mg PO BID PRN #15 tablet 11/12/19 Allergies Allergy/AdvReac Type Severity Reaction Status Date / Time doxycycline Allergy Nausea & Verified 11/12/19 14:25 Vomiting Penicillins Allergy Unknown Verified 11/12/19 14:25 Review of Systems ROS Statement: Those systems with pertinent positive or pertinent negative responses have been documented in the HPI. ROS Other: All systems not noted in ROS Statement are negative. Past Medical History Past Medical History: Asthma, Osteoarthritis (OA) Additional Past Medical History / Comment(s): DDD, HERNIATED DISK. UTERINE FIBROIDS History of Any Multi-Drug Resistant Organisms: None Reported Past Surgical History: Hysterectomy, Tubal Ligation Additional Past Surgical History / Comment(s): D&C Past Anesthesia/Blood Transfusion Reactions: No Reported Reaction Past Psychological History: No Psychological Hx Reported Smoking Status: Never smoker Past Alcohol Use History: Occasional Past Drug Use History: None Reported - Past Family History Father Family Medical History: Diabetes Mellitus, Renal Disease Mother Family Medical History: Hypertension Brother(s) Family Medical History: Cancer Additional Family Medical History / Comment(s): scizophrenia, cancer unknown Sister(s) Family Medical History: No Reported History Son(s) Additional Family Medical History / Comment(s): autism, ADD General Exam - General Exam Comments Initial Comments: GENERAL: Well-appearing, well-nourished and in no acute distress. HEAD: Atraumatic, normocephalic. EYES: Pupils equal round and reactive to light, extraocular movements intact, sclera anicteric, conjunctiva are normal. ENT: TMs normal, nares patent, oropharynx clear without exudates. Moist mucous membranes. NECK: Normal range of motion, supple without lymphadenopathy or JVD. LUNGS: Breath sounds clear to auscultation bilaterally and equal. No wheezes rales or rhonchi. HEART: Regular rate and rhythm without murmurs, rubs or gallops. ABDOMEN: Soft, nontender, normoactive bowel sounds. No guarding, no rebound. No masses appreciated. : Deferred EXTREMITIES: Normal range of motion of bilateral lower extremities. Patient has pain with trunk flexion. Full trunk extension and mild pain with trunk rotation. Patient has full and equal sensation bilaterally lower extremities. Strength is 5 out of 5 in lower extremities. Patient has good glut activation. no pitting or edema. No clubbing or cyanosis. NEUROLOGICAL: Cranial nerves II through XII grossly intact. Normal speech, normal gait. PSYCH: Normal mood, normal affect. SKIN: Warm, Dry, normal turgor, no rashes or lesions noted. Course Vital Signs 11/12/19 14:17 Temperature 99 F Pulse Rate 73 Respiratory 18 Rate Blood Pressure 136/91 O2 Sat by Pulse 97 Oximetry Medical Decision Making - Medical Decision Making Patient is a 44-year-old female here for lower back pain 2 days. She does have history of herniated disks. No trauma or falls. Patient was also concerned for possible UTI. Patient was given 60 of Toradol IM in the ER. UA returned for positive nitrates. Patient will be treated for UTI. Patient will be given first dose of Keflex in the ER. I will also refill her prescription for Flexeril for her continued low back pain which is most likely muscle skeletal in nature. Patient is in agreement with this plan of care. I will send Keflex to her pharmacy. She is stable for discharge. Return parameters were discussed with the patient and she verbalized understanding. Case discussed with Dr. Rosa. - Lab Data Lab Results 11/12/19 Range/Units 15:00 Urine Color Yellow Urine Appearance Cloudy H (Clear) Urine pH 5.5 (5.0-8.0) Ur Specific [place] 1.019 (1.001-1.035) Urine Protein Negative (Negative) Urine Glucose (UA) Negative (Negative) Urine Ketones Negative (Negative) Urine Blood Negative (Negative) Urine Nitrite Positive H (Negative) Urine Bilirubin Negative (Negative) Urine Urobilinogen <2.0 (<2.0) mg/dL Ur Leukocyte Esterase Negative (Negative) Urine RBC <1 (0-5) /hpf Urine WBC 2 (0-5) /hpf Ur Squamous Epith Cells 3 (0-4) /hpf Urine Bacteria Occasional H (None) /hpf Urine Mucus Occasional H (None) /hpf Disposition Clinical Impression: Strain of lumbar region, UTI (urinary tract infection) Disposition: HOME SELF-CARE Condition: Stable Instructions (If sedation given, give patient instructions): Acute Low Back Pain (ED), Urinary Tract Infection in Women (ED) Additional Instructions: Please return to the Emergency Department if symptoms worsen or any other concerns. Complete antibiotic as prescribed. May continue with ibuprofen and muscle relaxer for lumbar pain. Follow-up with PCP. Prescriptions: Cyclobenzaprine [Flexeril] 5 mg PO BID PRN #15 tablet PRN Reason: Muscle Spasm Cephalexin [Keflex] 500 mg PO BID 5 Days #9 cap Is patient prescribed a controlled substance at d/c from ED?: No Referrals: Madeleine Pendleton MD [Primary Care Provider] - 1-2 days
[2019-11-12 15:16] LABS: Appearance,Urine Cloudy (Clear); Bacteria,Urine Occasional /hpf; Bilirubin,Urine Negative (Negative); Blood,Urine Negative (Negative); Color,Urine Yellow; Glucose,Urine (UA) Negative (Negative); Ketones,Urine Negative (Negative); Leukocyte Esterase,Urine Negative (Negative); Mucus,Urine Occasional /hpf; Nitrite,Urine Positive (Negative); PH, Urine 5.5 (5.0-8.0); Protein,Urine Negative (Negative); RBC,Urine <1 /hpf (0-5); Specific Gravity,Urine 1.019 (1.001-1.035); Squamous Epithelial Cell,Urine 3 /hpf (0-4); Urobilinogen,Urine <2.0 mg/dL (<2.0); WBC,Urine 2 /hpf (0-5)
[2019-11-12] MEDS ORDERED: CEPHALEXIN 500 MG CAP PO STA (15:22)
== END 2019-11-12 15:57 | disposition home or self-care (01) ==
LOC: EC 13:48
DX: S39.012A Strain of muscle, fascia and tendon of lower back, initial encounter (principal); N39.0 Urinary tract infection, site not specified; J45.909 Unspecified asthma, uncomplicated; Z79.51 Long term (current) use of inhaled steroids; Z88.0 Allergy status to penicillin; Z88.1 Allergy status to other antibiotic agents; X58.XXXA Exposure to other specified factors, initial encounter
CPT/HCPCS: 81001; 99283; 96372; J1885

== ENCOUNTER → 2020-02-01 | Outpatient (CLI) | payer OTHER ==
--- NOTE | 2020-02-02 07:49 | MR ---
EXAMINATION TYPE: MR knee RT wo con DATE OF EXAM: 02/01/2020 COMPARISON: NONE HISTORY: Right knee pain, injured 1 mos ago TECHNIQUE: Multiplanar, multisequence images of the knee is performed without IV contrast. FINDINGS: MEDIAL MENISCUS: Anterior horn is intact without tear. Posterior horn shows oblique increased signal extends to inferior articular surface sagittal image 9. There is involvement of the central body note d sagittal image 7 and coronal image 18. LATERAL MENISCUS: Anterior and posterior horns are intact without tear. CRUCIATE LIGAMENTS: The anterior and posterior cruciate ligaments are intact and unremarkable. COLLATERAL LIGAMENTS: The medial collateral ligament and lateral collateral ligament complex are inta ct. Mild fluid signal surrounds the medial collateral ligament coronal image 17. EXTENSOR MECHANISM: Visualized quadriceps and patellar tendons are intact. EFFUSION: Small to moderate size suprapatellar joint effusion. POPLITEAL CYST: No popliteal/cordero cyst. TRICOMPARTMENT SPACES: Moderate narrowing patellofemoral compartment without spurring. Mild to modera te tibial condylar spurring. Mild medial tibiofemoral compartment narrowing. CARTILAGE: Thinning of articular cartilage along the inferior aspect of the posterior patellar pole. BONE MARROW SIGNAL: No focal abnormal marrow signal is appreciated. OTHER: No additional significant abnormality is appreciated. IMPRESSION: 1. Oblique full thickness tear posterior horn medial meniscus extending into the central body. 2. Mild to moderate tricompartment degenerative changes greatest patellofemoral compartment as detail ed above. 3. Mild MCL sprain injury. 4. Small to moderate-sized suprapatellar joint effusion.
== END | disposition home or self-care (01) ==
LOC: RADMRIMAIN 20:21
PROVIDERS: ATTEND Family Medicine
DX: S83.241A Other tear of medial meniscus, current injury, right knee, initial encounter (principal); S83.411A Sprain of medial collateral ligament of right knee, initial encounter; M17.11 Unilateral primary osteoarthritis, right knee

== ENCOUNTER → 2020-10-25 | Outpatient (CLI) | payer OTHER ==
--- NOTE | 2020-10-25 14:58 | MR ---
EXAMINATION TYPE: MR brain wo/w con DATE OF EXAM: 10/25/2020 1:35 PM COMPARISON: NONE HISTORY: Headaches, vision disturbance, dizziness CONTRAST: Patient received 7 mL intravenous Gadavist gadolinium contrast. Multiplanar and multispin-echo imaging of the brain was performed . Pre and post contrast enhanced i mages are obtained. The ventricles, basal cisterns and sulci overlying the cerebral convexities are mildly enlarged. There is evidence of mild periventricular white matter ischemic demyelination. Remote deep white matter insults are also noted. No acute edema is seen on diffusion weighted imaging. There is no evidence for midline shift or mass effect. Acute intracranial hemorrhage or extra-axial collection is not evident. No enhancing lesions are seen. The paranasal sinuses and mastoid air cells are well-aerated. IMPRESSION: Age-related atrophic and chronic small vessel ischemic change. No acute intracranial process at this time. No enhancing lesions are seen.
== END | disposition home or self-care (01) ==
LOC: RADMRIMAIN 12:47
PROVIDERS: ATTEND Family Medicine
DX: I67.82 Cerebral ischemia (principal)
CPT/HCPCS: 70553; A9585

== ENCOUNTER → 2020-11-21 | Outpatient (CLI) | payer OTHER ==
--- NOTE | 2020-11-21 10:49 | US ---
EXAMINATION TYPE: US carotid duplex BILAT DATE OF EXAM: 11/21/2020 COMPARISON: NONE CLINICAL HISTORY: R51.9 Headache, unspecified,R41.3 Memory changes. headaches blurred vision EXAM MEASUREMENTS: RIGHT: Peak Systolic Velocity (PSV) cm/sec ----- Right CCA: 83.8 ----- Right ICA: 95.5 ----- Right ECA: 110 ICA/CCA ratio: 1.1 RIGHT: End Diastole cm/sec ----- Right CCA: 27.9 ----- Right ICA: 42.2 ----- Right ECA: 26.0 LEFT: Peak Systolic Velocity (PSV) cm/sec ----- Left CCA: 86.4 ----- Left ICA: 78.6 ----- Left ECA: 83.2 ICA/CCA ratio: 0.9 LEFT: End Diastole cm/sec ----- Left CCA: 22.7 ----- Left ICA: 21.4 ----- Left ECA: 20.8 VERTEBRALS (direction of flow): Right Vertebral: Antegrade Left Vertebral: Antegrade Rhythm: Normal Grayscale images show no significant focal plaque No significant stenosis seen IMPRESSION: No hemodynamically significant stenosis in either internal carotid artery. Criteria for Assigning % of Stenosis / Diameter reduction (Estimation based on the indirect measurements of the internal carotid artery velocities (ICA PSV). 1. Normal (no stenosis)=ICA PSV < 125 cm/s: ratio < 2.0: ICA EDV<40 cm/s. 2. Less than 50% stenosis=ICA PSV < 125 cm/s: ratio < 2.0: ICA EDV<40 cm/s. 3. 50 to 69% stenosis=ICA PSV of 125 to 230 cm/s: ration 2.0 ? 4.0: ICA EDV 40-100 cm/s. 4. Greater than 70% stenosis to near occlusion= ICA PSV > 230 cm/s: ratio > 4.0: ICA EDV > 100 cm/s. 5. Near occlusion= ICA PSV velocities may be low or undetectable: variable ratio and ICA EDV. 6. Total occlusion=unable to detect flow.
== END | disposition home or self-care (01) ==
LOC: RADUSWWP 08:56
PROVIDERS: ATTEND Family Medicine
DX: R51.9 Headache, unspecified (principal); H53.8 Other visual disturbances; R41.3 Other amnesia
CPT/HCPCS: 93880

== ENCOUNTER 2021-03-28 15:01 | Emergency (ER) | payer OTHER ==
[2021-03-28 16:48] VITALS: TEMP 98.9
--- NOTE | 2021-03-28 18:35 | ED ---
General Adult HPI - General Chief complaint: Upper Respiratory Infection Stated complaint: Covid + needs antibody Time Seen by Provider: 03/28/21 18:11 Source: patient, RN notes reviewed Mode of arrival: ambulatory Limitations: no limitations - History of Present Illness Initial comments: This is a 46-year-old well-appearing female that presents to the emergency room for monoclonal antibodies infusion. She tested positive at her doctor's office on Thursday. She states that she's been taking Tylenol and Motrin however her symptoms have gotten worse and she feels more short of breath. She does have a history of asthma and has been using her daily medications. Oxygen saturation is 98% and she is in no distress at this time. She did receive the Moderna vaccine in October. -: days(s) (5) Severity scale (1-10): 5 Associated Symptoms: denies other symptoms, cough Treatments Prior to Arrival: other (Tylenol) - Related Data Home Medications Medication Instructions Recorded Confirmed Albuterol Sulfate [Proair Hfa] 1 - 2 puff INHALATION RT-Q6H PRN 02/03/18 04/27/18 Cyclobenzaprine [Flexeril] 5 mg PO HS PRN 02/03/18 04/27/18 Fluticasone/Vilanterol [Breo 1 inhalation PO DAILY 02/03/18 04/27/18 Ellipta 100-25 Mcg Inhaler] Montelukast Sodium [Singulair] 10 mg PO HS 02/03/18 04/27/18 Previous Rx's Medication Instructions Recorded Clindamycin HCl 300 mg PO Q8HR 7 Days #21 cap 04/29/18 Docusate [Colace] 100 mg PO DAILY PRN #15 cap 04/29/18 HYDROcodone/APAP 5-325MG [[place] 1 tab PO Q6HR PRN 7 Days #28 tab 04/29/18 5-325] Ibuprofen 600 mg PO TID #21 tablet 04/29/18 Magnesium Hydroxide [Milk of 2,400 mg PO BID PRN ml 04/29/18 Magnesia Concentrate] Albuterol Nebulized [Ventolin 2.5 mg INHALATION Q4H PRN #25 nebu 08/11/19 Nebulized] Albuterol Sulfate [Proair Hfa] 1 - 2 puff INHALATION Q4H PRN #1 08/11/19 inhaler Oseltamivir [Tamiflu] 75 mg PO Q12HR #10 cap 08/11/19 predniSONE 50 mg PO DAILY #5 tab 08/11/19 Cephalexin [Keflex] 500 mg PO BID 5 Days #9 cap 11/12/19 Cyclobenzaprine [Flexeril] 5 mg PO BID PRN #15 tablet 11/12/19 Allergies Allergy/AdvReac Type Severity Reaction Status Date / Time doxycycline Allergy Nausea & Verified 11/12/19 14:25 Vomiting Penicillins Allergy Unknown Verified 11/12/19 14:25 Review of Systems ROS Statement: Those systems with pertinent positive or pertinent negative responses have been documented in the HPI. ROS Other: All systems not noted in ROS Statement are negative. Past Medical History Past Medical History: Asthma, Osteoarthritis (OA) Additional Past Medical History / Comment(s): DDD, HERNIATED DISK. UTERINE FIBROIDS, carpal tunnel History of Any Multi-Drug Resistant Organisms: None Reported Past Surgical History: Hysterectomy, Tubal Ligation Additional Past Surgical History / Comment(s): D&C Past Anesthesia/Blood Transfusion Reactions: No Reported Reaction Past Psychological History: No Psychological Hx Reported Smoking Status: Never smoker Past Alcohol Use History: Occasional Past Drug Use History: None Reported - Past Family History Father Family Medical History: Diabetes Mellitus, Renal Disease Mother Family Medical History: Hypertension Brother(s) Family Medical History: Cancer Additional Family Medical History / Comment(s): scizophrenia, cancer unknown Sister(s) Family Medical History: No Reported History Son(s) Additional Family Medical History / Comment(s): autism, ADD General Exam Limitations: no limitations General appearance: alert, in no apparent distress Head exam: Present: atraumatic, normocephalic, normal inspection Eye exam: Present: normal appearance, PERRL, EOMI. Absent: scleral icterus, conjunctival injection, periorbital swelling ENT exam: Present: normal exam, normal oropharynx, mucous membranes moist Neck exam: Present: normal inspection, full ROM. Absent: tenderness, meningismus, lymphadenopathy Respiratory exam: Present: normal lung sounds bilaterally. Absent: respiratory distress, wheezes, rales, rhonchi, stridor, chest wall tenderness, accessory muscle use, decreased breath sounds Cardiovascular Exam: Present: regular rate, normal rhythm, normal heart sounds. Absent: systolic murmur, diastolic murmur, rubs, gallop, clicks Extremities exam: Present: full ROM, normal capillary refill. Absent: tenderness Neurological exam: Present: alert, oriented X3, normal gait Psychiatric exam: Present: normal affect, normal mood Skin exam: Present: warm, dry, intact, normal color. Absent: rash, cyanosis, diaphoretic Course Vital Signs 03/28/21 03/28/21 16:42 23:36 Temperature 98.9 F Pulse Rate 89 73 Respiratory 18 20 Rate Blood Pressure 141/94 158/93 O2 Sat by Pulse 98 99 Oximetry Medical Decision Making - Medical Decision Making Patient presents to the emergency room by recommendation of her doctor to re ceive monoclonal antibodies were positive coronavirus test. Patient's oxygen level is 98% and she is not in respiratory distress. She is afebrile in the emergency room. Her lung sounds are clear to auscultation. She denies any chest pain at this time. She'll be directed to quarantine for 10 days from symptom onset Disposition Clinical Impression: COVID-19 Disposition: HOME SELF-CARE Instructions (If sedation given, give patient instructions): Coronavirus Disease 2019 (COVID-19) Additional Instructions: Self quarantine 10 days from symptom onset. Return to the emergency room with any new or worsening symptoms including difficulty breathing or chest pain. Is patient prescribed a controlled substance at d/c from ED?: No Referrals: Madeleine Pendleton MD [Primary Care Provider] - 1-2 days Time of Disposition: 23:43
[2021-03-28] MEDS ORDERED: SODIUM CHLORIDE 0.9% 50 ML IVPB ONE (19:30)
[2021-03-28] MEDS ORDERED: CASIRIVIMAB (REGN10933) (EUA) 600 MG, IMDEVIMAB (REGN10987) (EUA) 600 MG in SODIUM CHLO... IVPB ONE (20:00)
[2021-03-28 23:40] VITALS: BP 158/93; PULSE 73; RESP 20
== END 2021-03-28 23:43 | disposition home or self-care (01) ==
LOC: EC 15:01
DX: U07.1 COVID-19 (principal); J45.909 Unspecified asthma, uncomplicated; Z88.0 Allergy status to penicillin; Z88.1 Allergy status to other antibiotic agents; Z79.51 Long term (current) use of inhaled steroids
CPT/HCPCS: 99283 ×2; 96365; M0243; Q0243

== ENCOUNTER → 2022-11-25 | Outpatient (CLI) | payer OTHER ==
[2022-11-25 21:17] LABS: ALT 93 U/L (8-44); AST 36 U/L (13-35); Albumin 4.9 d/dL (3.8-4.9); Albumin/Globulin Ratio 1.96 Ratio (1.60-3.17); Alkaline Phosphatase 73 U/L (41-126); Amylase 60 U/L (23-121); BUN/Creat Ratio 23.14 Ratio (12.00-20.00); Blood Urea Nitrogen 16.2 mg/dL (9.0-27.0); Calcium 9.3 mg/dL (8.7-10.3); Carbon Dioxide 22.2 mmol/L (21.6-31.8); Chloride 103 mmol/L (96-109); Chol/HDL Ratio 6.54 Ratio; Globulin 2.5 d/dL (1.6-3.3); Glucose 81 mg/dL (70-110); LDL Cholesterol,Calculated 170.3 mg/dL (0.0-131.0); Lipase 60 U/L (14-63); Sodium 140 mmol/L (135-145); Total Bilirubin 0.7 mg/dL (0.3-1.2); Total Protein 7.4 d/dL (6.2-8.2)
[2022-11-25 21:18] LABS: Follicle Stimulating Hormone 8.8 mIU/mL; Luteinizing Hormone 6.5 mIU/mL
[2022-11-25 21:19] LABS: Hepatitis B Surface Antigen Nonreactive; Hepatitis C IgG Antibody Nonreactive
[2022-11-25 21:55] LABS: Gliadin AB IgA, Deaminated Negative (Negative); Gliadin AB IgA, Unit 0.6 U/mL; Gliadin AB IgG, Deaminated Negative (Negative); Gliadin AB IgG, Unit <0.4 U/mL
[2022-11-25 22:28] LABS: HIV 2 AB Non-Reactive (Non-Reactive); HIV AB P24 Non-Reactive (Non-Reactive); HIV P24 AG Non-Reactive (Non-Reactive)
[2022-11-25 23:43] LABS: Basophils # (A) 0.07 X 10*3/uL (0.00-0.10); Basophils % (A) 1.3 %; Eosinophils # (A) 0.18 X 10*3/uL (0.04-0.35); Eosinophils % (A) 3.3 %; HCT 42.5 % (37.2-46.3); HGB 14.2 d/dL (12.0-15.0); Lymphocytes # (A) 1.22 X 10*3/uL (0.90-5.00); Lymphocytes % (A) 22.6 %; MCH 31.8 pg (27.0-32.0); MCHC 33.4 d/dL (32.0-37.0); MCV 95.3 FL (80.0-97.0); Mean Platelet Volume 9.7 FL (9.5-12.2); Monocytes # (A) 0.28 X 10*3/uL (0.20-1.00); Monocytes % (A) 5.2 %; NRBC Per 100 WBC 0 X 10*3/uL (0.00-0.01); Neutrophils # (A) 3.62 X 10*3/uL (1.80-7.70); Neutrophils % (A) 67.2 %; Platelet Count 243 X 10*3/uL (140-440); RBC 4.46 X 10*6/uL (4.10-5.20); RDW 13.4 % (11.5-14.5); WBC 5.39 X 10*3/uL (4.50-10.00)
[2022-12-03 15:10] LABS: ANA Pattern SPK
== END | disposition home or self-care (01) ==
LOC: LABWHC1 11:58
PROVIDERS: ATTEND Family Medicine
DX: Z11.4 Encounter for screening for human immunodeficiency virus [HIV] (principal); Z13.220 Encounter for screening for lipoid disorders; Z11.59 Encounter for screening for other viral diseases; K52.9 Noninfective gastroenteritis and colitis, unspecified; R14.0 Abdominal distension (gaseous)
CPT/HCPCS: 36415; 80053; 80061; 82150; 82607; 82670; 82746; 83001; 83002; 83036; 83516; 83690; 84443; 85025; 86038; 86039; 86706; 86803; 87340; 87390

== ENCOUNTER → 2022-12-23 | Outpatient (CLI) | payer BC ==
--- NOTE | 2022-12-23 10:04 | US ---
EXAMINATION TYPE: US abdomen complete DATE OF EXAM: 12/23/2022 COMPARISON: CT 2018 CLINICAL INDICATION: Female, 47 years old with history of K52.9 DIARRHEA, R14.0 ABD BLOATING; TECHNIQUE: Multiple sonographic images of the abdomen are obtained. FINDINGS: EXAM MEASUREMENTS: Liver Length: 13.2 cm Gallbladder Wall: 0.3 cm CBD: 0.5 cm Spleen: 9.3 cm Right Kidney: 10.9 x 4.9 x 6.1 cm Left Kidney: 10.3 x 5.3 x 6.2 cm CHANNEL MARKETING MANAGER NOTES: Pancreas: mostly obscured by bowel gas Liver: limited visualization to intercostal window increased echotexture to liver. Gallbladder: No stones seen Evidence for sonographic Heller's sign: No CBD: wnl Spleen: wnl Right Kidney: No hydronephrosis or masses seen Left Kidney: No hydronephrosis or masses seen Upper IVC: wnl Abd Aorta: partially obscured by bowel gas, visualized portions wnl. The liver is homogenous with increased echotexture. The intrahepatic portion of the IVC and proximal abdominal aorta are within normal limits. There is no evidence of cholelithiasis. Common bile duct is unremarkable. The visualized portions of the pancreas are homogenous. The spleen is unremarkabl e. Kidneys are symmetric and free of hydronephrosis. No renal lesions are seen. IMPRESSION: 1. Hepatic steatosis. 2. No evidence for acute process.
--- NOTE | 2022-12-23 10:12 | US ---
EXAMINATION TYPE: US pelvis complete transvag DATE OF EXAM: 12/23/2022 COMPARISON: US & CT from 2018 CLINICAL INDICATION: Female, 47 years old with history of K52.9 DIARRHEA, R14.0 ABD BLOATING; TECHNIQUE: Transvaginal (TV) and Transabdominal (TA) . Transabdominal sonographic images of the pel vis were acquired. Transvaginal sonographic images were medically necessary to better assess the fol lowing anatomy: ovaries Date of LMP: hysterectomy 2018 EXAM MEASUREMENTS: Uterus: Surgically absent Endometrial Stripe: Surgically absent Right Ovary: 2.3 x 1.5 x 1.4 cm Left Ovary: 2.8 x 1.2 x 2.5 cm 1. Uterus: Surgically absent 2. Endometrium: Surgically absent 3. Right Ovary: wnl 4. Left Ovary: follicle measures 1.3 x 1.1 x 1.3 cm. 5. Bilateral Adnexa: wnl 6. Posterior cul-de-sac: no free fluid IMPRESSION: 1. No evidence for acute process. 2. Surgically absent uterus.
== END | disposition home or self-care (01) ==
LOC: RADUSWWP 08:48
PROVIDERS: ATTEND Family Medicine
DX: K76.0 Fatty (change of) liver, not elsewhere classified (principal); K52.9 Noninfective gastroenteritis and colitis, unspecified; R14.0 Abdominal distension (gaseous); Z90.710 Acquired absence of both cervix and uterus
CPT/HCPCS: 76700; 76830; 76856

== ENCOUNTER 2023-03-16 11:27 | Emergency (ER) | payer BC ==
[2023-03-16 11:58] LABS: Basophils % (A) 1 %; Eosinophils # (A) 0.2 k/uL (0-0.7); Eosinophils % (A) 4 %; HCT 41.9 % (34.0-46.0); HGB 14.2 gm/dL (11.4-16.0); Lymphocytes # (A) 0.9 k/uL (1.0-4.8); Lymphocytes % (A) 22 %; MCH 32.1 pg (25.0-35.0); MCHC 33.9 g/dL (31.0-37.0); MCV 94.6 fL (80.0-100.0); Mean Platelet Volume 7.7; Monocytes # (A) 0.2 k/uL (0-1.0); Monocytes % (A) 5 %; Neutrophils # (A) 2.8 k/uL (1.3-7.7); Neutrophils % (A) 67 %; Platelet Count 225 k/uL (150-450); RBC 4.43 m/uL (3.80-5.40); RDW 12.2 % (11.5-15.5); WBC 4.2 k/uL (3.8-10.6)
[2023-03-16 12:10] LABS: ALT 39 U/L (4-34); AST 33 U/L (14-36); African American GFR (CKD) >90 (>60 ml/min/1.73 sqM); Albumin 3.9 g/dL (3.5-5.0); Alkaline Phosphatase 78 U/L (38-126); Anion Gap 12 mmol/L; Blood Urea Nitrogen 16 mg/dL (7-17); Calcium 8.8 mg/dL (8.4-10.2); Carbon Dioxide 19 mmol/L (22-30); Chloride 108 mmol/L (98-107); Glucose 131 mg/dL (74-99); Non-African American GFR(CKD) >90 (>60 ml/min/1.73 sqM); Potassium 3.8 mmol/L (3.5-5.1); Sodium 139 mmol/L (137-145); Total Protein 6.7 g/dL (6.3-8.2)
--- NOTE | 2023-03-16 12:30 | XR ---
EXAMINATION TYPE: XR chest 2V DATE OF EXAM: 03/16/2023 COMPARISON: NONE TECHNIQUE: PA and lateral views submitted. HISTORY: Difficulty breathing 2720 FINDINGS: The lungs are clear and there is no pneumothorax, pleural effusion, or focal pneumonia. Heart size normal and no overt failure. Osseous structures demonstrate hypertrophic and degenerative changes of the spine. IMPRESSION: 1. No acute process.
[2023-03-16 13:56] VITALS: RESP 18
--- NOTE | 2023-03-16 14:36 | ED ---
General Adult HPI - General Chief complaint: Shortness of Breath Stated complaint: symptoms of Heart Attack Time Seen by Provider: 03/16/23 12:59 Source: patient, RN notes reviewed, old records reviewed Mode of arrival: ambulatory - History of Present Illness Initial comments: 48-year-old female who presented for evaluation of possible anginal equivalent. Patient had contacted her primary care provider and was recommended to present to the emergency department for complaint of some left arm tingling and jaw pain which occurred yesterday. No central chest pain. No history of coronary artery disease. Symptoms are resolved today but when she had contacted her primary car e provider this center to the emergency room with concerns that this could be related to ACS. - Related Data Home Medications Medication Instructions Recorded Confirmed Albuterol Sulfate [Proair Hfa] 1 - 2 puff INHALATION RT-Q6H PRN 02/03/18 04/27/18 Cyclobenzaprine [Flexeril] 5 mg PO HS PRN 02/03/18 04/27/18 Fluticasone/Vilanterol [Breo 1 inhalation PO DAILY 02/03/18 04/27/18 Ellipta 100-25 Mcg Inhaler] Montelukast Sodium [Singulair] 10 mg PO HS 02/03/18 04/27/18 Previous Rx's Medication Instructions Recorded Docusate [Colace] 100 mg PO DAILY PRN #15 cap 04/29/18 HYDROcodone/APAP 5-325MG [[place] 1 tab PO Q6HR PRN 7 Days #28 tab 04/29/18 5-325] Ibuprofen 600 mg PO TID #21 tablet 04/29/18 Magnesium Hydroxide [Milk of 2,400 mg PO BID PRN ml 04/29/18 Magnesia Concentrate] clindamycin HCL [Clindamycin HCl] 300 mg PO Q8HR 7 Days #21 cap 04/29/18 Albuterol Nebulized [Ventolin 2.5 mg INHALATION Q4H PRN #25 nebu 08/11/19 Nebulized] Albuterol Sulfate [Proair Hfa] 1 - 2 puff INHALATION Q4H PRN #1 08/11/19 inhaler Oseltamivir [Tamiflu] 75 mg PO Q12HR #10 cap 08/11/19 predniSONE 50 mg PO DAILY #5 tab 08/11/19 Cephalexin [Keflex] 500 mg PO BID 5 Days #9 cap 11/12/19 Cyclobenzaprine [Flexeril] 5 mg PO BID PRN #15 tablet 11/12/19 Allergies Allergy/AdvReac Type Severity Reaction Status Date / Time doxycycline Allergy Nausea & Verified 03/16/23 11:33 Vomiting Penicillins Allergy Unknown Verified 03/16/23 11:33 Review of Systems ROS Statement: Those systems with pertinent positive or pertinent negative responses have been documented in the HPI. ROS Other: All systems not noted in ROS Statement are negative. Past Medical History Past Medical History: Asthma, Osteoarthritis (OA) Additional Past Medical History / Comment(s): DDD, HERNIATED DISK. UTERINE FIBROIDS, carpal tunnel, fatty liver History of Any Multi-Drug Resistant Organisms: None Reported Past Surgical History: Hysterectomy, Tubal Ligation Additional Past Surgical History / Comment(s): D&C Past Anesthesia/Blood Transfusion Reactions: No Reported Reaction Past Psychological History: No Psychological Hx Reported Smoking Status: Never smoker Past Alcohol Use History: Occasional Past Drug Use History: None Reported - Past Family History Father Family Medical History: Diabetes Mellitus, Renal Disease Mother Family Medical History: Hypertension Brother(s) Family Medical History: Cancer Additional Family Medical History / Comment(s): scizophrenia, cancer unknown Sister(s) Family Medical History: No Reported History Son(s) Additional Family Medical History / Comment(s): autism, ADD General Exam General appearance: alert, in no apparent distress Head exam: Present: atraumatic, normocephalic Eye exam: Present: normal appearance. Absent: PERRL, EOMI ENT exam: Present: normal exam Neck exam: Present: normal inspection. Absent: tenderness, meningismus Respiratory exam: Present: normal lung sounds bilaterally. Absent: respiratory distress, wheezes Cardiovascular Exam: Present: regular rate, normal rhythm GI/Abdominal exam: Present: soft. Absent: distended, tenderness Extremities exam: Present: normal inspection, normal capillary refill Neurological exam: Present: alert, oriented X3, CN II-XII intact. Absent: motor sensory deficit Psychiatric exam: Present: normal affect, normal mood Skin exam: Present: warm, dry, intact Course Vital Signs 03/16/23 03/16/23 11:29 13:45 Temperature 98.3 F Pulse Rate 79 63 Respiratory 16 18 Rate Blood Pressure 138/88 135/83 O2 Sat by Pulse 96 98 Oximetry Medical Decision Making - Medical Decision Making Was pt. sent in by a medical professional or institution (, [facility], LEGISLATIVE ADVOCATE, urgent care, hospital, or [facility]...) When possible be specific @ -No Did you speak to anyone other than the patient for history (EMS, parent, family, police, friend...)? What history was obtained from this source @ -No Did you review nursing and triage notes (agree or disagree)? Why? @ -I reviewed and agree with nursing and triage notes Were old charts reviewed (outside hosp., previous admission, EMS record, old EKG, old radiological studies, urgent care reports/EKG's, [facility] records)? Report findings @ -No old charts were reviewed Differential Diagnosis (chest pain, altered mental status, abdominal pain women, abdominal pain men, vaginal bleeding, weakness, fever, dyspnea, syncope, headache, dizziness, GI bleed, back pain, seizure, CVA, palpatations, mental health, musculoskeletal)? @ -not applicable EKG interpreted by me (3pts min.). @ EKG: Sinus rhythm rate of 70, W[place] interval 151, QRS duration 90, QTC 423, no ST segment changes X-rays interpreted by me (1pt min.). @ Chest x-ray: No acute findings, no pneumothorax, no consolidated pneumonia. CT interpreted by me (1pt min.). @Negative for acute cardiopulmonary findings, no focal pneumonia, no pneumothorax and normal cardiac silhouette U/S interpreted by me (1pt. min.). @ -None done What testing was considered but not performed or refused? (CT, X-rays, U/S, labs)? Why? @ -None What meds were considered but not given or refused? Why? @ -None Did you discuss the management of the patient with other professionals (professionals i.e. [facility] Cm, LEGISLATIVE ADVOCATE, lab, RT, psych nurse, social media sr strategy manager, registered client associate, teacher, fire control officer, family service caseworker)? Give summary @ -No Was smoking cessation discussed for >3mins.? @ -No Was critical care preformed (if so, how long)? @ -No Were there social determinants of health that impacted care today? How? (Homelessness, low income, unemployed, alcoholism, drug addiction, transportation, low edu. Level, literacy, decrease access to med. care, group home, rehab)? @ -No Was there de-escalation of care discussed even if they declined (Discuss DNR or withdrawal of care, Hospice)? DNR status @ -No What co-morbidities impacted this encounter? (DM, HTN, Smoking, COPD, CAD, Cancer, CVA, ARF, Chemo, Hep., AIDS, mental health diagnosis, sleep apnea, morbid obesity)? @ -[Asthma Was patient admitted / discharged? Hospital course, mention meds given and route, prescriptions, significant lab abnormalities, going to OR and other pertinent info. @ -48-year-old female had presented with an episode of jaw pain and left arm tingling which occurred yesterday. Patient had contacted the primary doctor who sent her to the emergency room for evaluation. She had no chest pain. No v omiting. No diaphoresis. EKG sinus rhythm without ST segment elevation per chest x-rays clear. She has normal CBC, normal CMP, negative d-dimer, negative troponin. I did repeat a troponin test in the emergency department and remains negative. Patient is instructed to follow-up with the primary care provider and return to the emergency department with any chest pain or associated symptoms. Undiagnosed new problem with uncertain prognosis? @ -No Drug Therapy requiring intensive monitoring for toxicity (Heparin, Nitro, Insulin, Cardizem)? @ -No Were any procedures done? @ -No Diagnosis/symptom? @ -[Jaw pain Acute, or Chronic, or Acute on Chronic? @ -[Acute, resolved Uncomplicated (without systemic symptoms) or Complicated (systemic symptoms)? @ -Uncomplicated Side effects of treatment? @ -No Exacerbation, Progression, or Severe Exacerbation? @ -No Poses a threat to life or bodily function? How? (Chest pain, [place], [place], pneumonia, PE, COPD, DKA, ARF, appy, cholecystitis, CVA, Diverticulitis, Homicidal, Suicidal, threat to staff... and all critical care pts) @ -Low risk at this time - Lab Data Result diagrams: 03/16/23 11:41 03/16/23 11:41 Lab Results 03/16/23 03/16/23 03/16/23 Range/Units 11:41 11:41 11:41 WBC 4.2 (3.8-10.6) k/uL RBC 4.43 (3.80-5.40) m/uL Hgb 14.2 (11.4-16.0) gm/dL Hct 41.9 (34.0-46.0) % MCV 94.6 (80.0-100.0) fL MCH 32.1 (25.0-35.0) pg MCHC 33.9 (31.0-37.0) g/dL RDW 12.2 (11.5-15.5) % Plt Count 225 (150-450) k/uL MPV 7.7 Neutrophils % 67 % Lymphocytes % 22 % Monocytes % 5 % Eosinophils % 4 % Basophils % 1 % Neutrophils # 2.8 (1.3-7.7) k/uL Lymphocytes # 0.9 L (1.0-4.8) k/uL Monocytes # 0.2 (0-1.0) k/uL Eosinophils # 0.2 (0-0.7) k/uL Basophils # 0.0 (0-0.2) k/uL PT (9.0-12.0) sec INR (<1.2) APTT (22.0-30.0) sec D-Dimer (<0.60) mg/L FEU Sodium 139 (137-145) mmol/L Potassium 3.8 (3.5-5.1) mmol/L Chloride 108 H (98-107) mmol/L Carbon Dioxide 19 L (22-30) mmol/L Anion Gap 12 mmol/L BUN 16 (7-17) mg/dL Creatinine 0.54 (0.52-1.04) mg/dL Est GFR (CKD-EPI)AfAm >90 (>60 ml/min/1.73 sqM) Est GFR (CKD-EPI)NonAf >90 (>60 ml/min/1.73 sqM) Glucose 131 H (74-99) mg/dL Plasma Lactic Acid [place] 1.5 (0.7-2.0) mmol/L Calcium 8.8 (8.4-10.2) mg/dL Total Bilirubin 1.0 (0.2-1.3) mg/dL AST 33 (14-36) U/L ALT 39 H (4-34) U/L Alkaline Phosphatase 78 (38-126) U/L Troponin I (0.000-0.034) ng/mL Total Protein 6.7 (6.3-8.2) g/dL Albumin 3.9 (3.5-5.0) g/dL 03/16/23 03/16/23 03/16/23 Range/Units 11:41 13:45 13:50 WBC (3.8-10.6) k/uL RBC (3.80-5.40) m/uL Hgb (11.4-16.0) gm/dL Hct (34.0-46.0) % MCV (80.0-100.0) fL MCH (25.0-35.0) pg MCHC (31.0-37.0) g/dL RDW (11.5-15.5) % Plt Count (150-450) k/uL MPV Neutrophils % % Lymphocytes % % Monocytes % % Eosinophils % % Basophils % % Neutrophils # (1.3-7.7) k/uL Lymphocytes # (1.0-4.8) k/uL Monocytes # (0-1.0) k/uL Eosinophils # (0-0.7) k/uL Basophils # (0-0.2) k/uL PT 9.6 (9.0-12.0) sec INR 0.9 (<1.2) APTT 24.6 (22.0-30.0) sec D-Dimer 0.31 (<0.60) mg/L FEU Sodium (137-145) mmol/L Potassium (3.5-5.1) mmol/L Chloride (98-107) mmol/L Carbon Dioxide (22-30) mmol/L Anion Gap mmol/L BUN (7-17) mg/dL Creatinine (0.52-1.04) mg/dL Est GFR (CKD-EPI)AfAm (>60 ml/min/1.73 sqM) Est GFR (CKD-EPI)NonAf (>60 ml/min/1.73 sqM) Glucose (74-99) mg/dL Plasma Lactic Acid Mendel (0.7-2.0) mmol/L Calcium (8.4-10.2) mg/dL Total Bilirubin (0.2-1.3) mg/dL AST (14-36) U/L ALT (4-34) U/L Alkaline Phosphatase (38-126) U/L Troponin I <0.012 <0.012 (0.000-0.034) ng/mL Total Protein (6.3-8.2) g/dL Albumin (3.5-5.0) g/dL Disposition Clinical Impression: Pain in lower jaw Disposition: HOME SELF-CARE Condition: Fair Is patient prescribed a controlled substance at d/c from ED?: No Referrals: Madeleine Pendleton MD [Primary Care Provider] - 1-2 days Time of Disposition: 15:52
[2023-03-16 14:37] LABS: INR 0.9 (<1.2); Partial Thromboplastin Time 24.6 sec (22.0-30.0); Prothrombin Time 9.6 sec (9.0-12.0)
[2023-03-16 16:18] VITALS: BP 125/89; PULSE 60; TEMP 98
== END 2023-03-16 16:11 | disposition home or self-care (01) ==
LOC: EC 11:27
DX: R68.84 Jaw pain (principal); K76.0 Fatty (change of) liver, not elsewhere classified; J45.909 Unspecified asthma, uncomplicated; Z79.899 Other long term (current) drug therapy; Z88.0 Allergy status to penicillin; Z88.8 Allergy status to other drugs, medicaments and biological substances; Z79.51 Long term (current) use of inhaled steroids
CPT/HCPCS: 36415; 71046; 80053; 83605; 84484; 85025; 85379; 85610; 85730; 93005; 99285

== ENCOUNTER → 2023-03-27 | Outpatient (CLI) | payer BC, OTHER ==
--- NOTE | 2023-04-01 09:14 | MM ---
Reason for Exam: Screening (asymptomatic). Last mammogram was performed 8 year(s) and 4 month(s) ago. Patient History: Menarche at age 16. First Full-Term at age 18. Left ovary removed at age 43. Hysterectomy at age 43. 2018, Ultrasound-Guided Core Biopsy on the Right side. Maternal grandmother had breast cancer. Risk Values: Iram 5 year model risk: 0.8%. NCI Lifetime model risk: 7.6%. Prior Study Comparison: 02/09/2014 Bilateral Diagnostic Mammogram, [facility]. 11/27/2014 Right Diagnostic Mammogram, [facility]. Tissue Density: The breast tissue is heterogeneously dense. This may lower the sensitivity of mammography. Findings: Analyzed By CAD. There is no suspicious group of microcalcifications or new suspicious mass in either breast. Overall Assessment: Benign, BI-RAD 2 Management: Screening Mammogram of both breasts in 1 year. . Patient should continue monthly self-breast exams. A clinical breast exam by your physician is recommended on an annual basis. This exam should not preclude additional follow-up of suspicious palpable abnormalities. Note on Iram scores and lifetime risk: 1. A Iram score greater than 3% is considered moderate risk. If this is the case, consider specialist referral to assess eligibility for a risk reducing agent. 2. If overall lifetime risk for the development of breast cancer is 20% or higher, the patient may qualify for future screening with alternating mammogram and breast MRI. Electronically signed and approved by: Dawson Lazaro M.D. Radiologis
== END | disposition home or self-care (01) ==
LOC: RADMAMWWP 16:31
PROVIDERS: ATTEND Family Medicine
DX: Z12.31 Encounter for screening mammogram for malignant neoplasm of breast (principal); Z80.3 Family history of malignant neoplasm of breast
CPT/HCPCS: 77063; 77067

== ENCOUNTER → 2023-07-13 | Outpatient (CLI) | payer BC, OTHER ==
--- NOTE | 2023-07-13 16:13 | MR ---
EXAMINATION TYPE: MR lumbar spine wo con DATE OF EXAM: 07/13/2023 COMPARISON: 08/06/2012 HISTORY: Herniated disc/Back pain since 1998 CONTRAST: 0 mL intravenous Gadavist. TECHNIQUE: Multiplanar, multisequence images of the lumbar spine were acquired. FINDINGS: Disc desiccation is present at L3-4 through L5-S1. This is somewhat progressive at L5-S1 f rom comparison. Disc heights appear preserved. L5-S1: There is mild disc bulging into the epidural space. No thecal sac contact or nerve root displa cement is evident. Mild right foraminal narrowing may be present. L4-L5: Broad-based disc bulges anterior thecal sac contact. No AP spinal canal stenosis is present. N eural foramen are patent L3-L4: No significant disc bulge or disc herniation. No spinal canal stenosis. No foraminal stenosi s. L2-L3: No significant disc bulge or disc herniation. No spinal canal stenosis. No foraminal stenosi s. L1-L2: No significant disc bulge or disc herniation. No spinal canal stenosis. No foraminal stenosi s. T12-L1: No significant disc bulge or disc herniation. No spinal canal stenosis. No foraminal stenos is. IMPRESSION: 1. Mild disc bulging L5-S1 L4-5 without nerve root contact or spinal canal stenosis. 2. Mild diffuse disc dehydration changes L3-4 through L5-S1 right
== END | disposition home or self-care (01) ==
LOC: RADMRIMAIN 15:20
PROVIDERS: ATTEND Family Medicine
DX: M51.26 Other intervertebral disc displacement, lumbar region (principal)
CPT/HCPCS: 72148

== ENCOUNTER 2023-07-28 06:18 | Day surgery (SDC) | payer BC, OTHER ==
[~2023-07-28 06:18] MED LIST: HYDROmorphone 0.5 MG/0.5 ML SYRINGE IVP PRN; LACTATED RINGERS 1,000 ML IV SCH
[2023-07-28] MEDS: LACTATED RINGERS 1,000 ML IV SCH (07:05)
[2023-07-28] MEDS ORDERED: PROPOFOL 10 MG/ML 20 ML VIAL IV ONE (07:09)
[2023-07-28] MEDS ORDERED: LIDOCAINE 1% INJ 10MG/ML (20 ML MDV) ONE (07:09)
[2023-07-28 07:18] VITALS: RESP 16; TEMP 97.8
--- NOTE | 2023-07-28 07:35 | P.PCN ---
Date of Procedure: 07/28/23 Procedure(s) Performed: Brief history: Patient is a pleasant 48-year-old white female scheduled for an elective upper endoscopy as well as colonoscopy as a part of evaluation of GERD/intermittent nausea vomiting and change in bowel habits for the last several months duration Procedure performed: Esophagogastroduodenoscopy with biopsy Colonoscopy with random biopsies Preoperative diagnosis: GERD/intermittent nausea vomiting Change in bowel habits Anesthesia: MAC Procedure: After informed consent was obtained from the patient was brought into the endoscopy unit and IV sedation was administered by anesthesia under continuous monitoring. Initially upper endoscopy was done. The Olympus GF 160 video endoscope was inserted inserted into the mouth and esophagus intubated without any difficulty and was gradually advanced into the stomach and duodenum and carefully examined. The bulb and second part of the duodenum appeared normal biopsies were done from the duodenum to rule out celiac disease.. The scope was then withdrawn into the stomach adequately insufflated with air and upon careful examination the antrum had mild gastritis and biopsies were done from this area. Mucosa of the, cardia and fundus appeared normal. The scope was then withdrawn into the esophagus. Small hiatal hernia noted. The GE junction was located at 40 cm to the incisors. It appeared regular with no erythema erosions or ulcerations. Rest of the esophagus appeared normal. Patient tolerated the procedure well. At this time the patient continued to remain sedation. Initial digital rectal examination was normal. Olympus CF 160 video colonoscope was then inserted into the rectum and gradually advanced to the cecum without any difficulty. Careful examination was performed as the scope was gradually being withdrawn. The prep was excellent. The cecum, ascending colon, transverse colon, descending colon, sigmoid colon and rectum appeared normal. Retroflexion was performed in the rectum and no lesions were noted. Random biopsies were done from ascending and descending colon to evaluate for microscopic/collagenous colitis. Biopsies were done from the Patient tolerated the procedure well. Impression: 1. Upper endoscopy revealed mild antral gastritis, small hiatal hernia but no evidence of esophagitis 2. Colonoscopy was within normal limits with no evidence of colorectal neoplasia Recommendations: Findings of this examination were discussed with the patient as well as a family. She was advised to follow with the biopsy results. Continue with dicyclomine 10 mg 3 times daily and follow up in office in 3-4 weeks.
[2023-07-28 08:17] VITALS: BP 117/78; PULSE 86
== END 2023-07-28 08:38 | disposition home or self-care (01) ==
LOC: ORWHC2ENDO 06:18
PROVIDERS: ATTEND Internal Medicine Gastroenterology
DX: K29.50 Unspecified chronic gastritis without bleeding (principal); K21.9 Gastro-esophageal reflux disease without esophagitis; K44.9 Diaphragmatic hernia without obstruction or gangrene; K52.831 Collagenous colitis; J45.909 Unspecified asthma, uncomplicated; F17.210 Nicotine dependence, cigarettes, uncomplicated; M19.90 Unspecified osteoarthritis, unspecified site; F41.9 Anxiety disorder, unspecified; F32.A Depression, unspecified; Z79.899 Other long term (current) drug therapy; Z98.890 Other specified postprocedural states
CPT/HCPCS: 88305; 45380; 43239; J2001; J2704

== ENCOUNTER → 2023-09-04 | Outpatient (CLI) | payer BC, OTHER ==
[2023-09-04 18:47] LABS: Basophils # (A) 0.08 X 10*3/uL (0.00-0.10); Basophils % (A) 1.4 %; Eosinophils # (A) 0.17 X 10*3/uL (0.04-0.35); Eosinophils % (A) 2.9 %; HCT 45.3 % (37.2-46.3); HGB 14.4 g/dL (12.0-15.0); Lymphocytes # (A) 1.54 X 10*3/uL (0.90-5.00); Lymphocytes % (A) 26.1 %; MCH 30.1 pg (27.0-32.0); MCHC 31.8 g/dL (32.0-37.0); MCV 94.6 FL (80.0-97.0); Mean Platelet Volume 10.2 FL (9.5-12.2); Monocytes % (A) 5.1 %; NRBC Per 100 WBC 0 X 10*3/uL (0.00-0.01); Neutrophils % (A) 64.2 %; Platelet Count 274 X 10*3/uL (140-440); RBC 4.79 X 10*6/uL (4.10-5.20); RDW 13.1 % (11.5-14.5); WBC 5.91 X 10*3/uL (4.50-10.00)
[2023-09-04 18:58] LABS: ALT 47 U/L (8-44); AST 30 U/L (13-35); Albumin/Globulin Ratio 1.79 Ratio (1.60-3.17); Alkaline Phosphatase 79 U/L (41-126); Blood Urea Nitrogen 17.2 mg/dL (9.0-27.0); C Reactive Protein <0.30 mg/dL (0.00-0.80); Calcium 9.4 mg/dL (8.7-10.3); Carbon Dioxide 17.5 mmol/L (21.6-31.8); Chloride 103 mmol/L (96-109); Globulin 2.8 g/dL (1.6-3.3); Glucose 95 mg/dL (70-110); Potassium 3.4 mmol/L (3.5-5.5); Sodium 141 mmol/L (135-145); Total Bilirubin 0.5 mg/dL (0.3-1.2); Total Protein 7.8 g/dL (6.2-8.2)
[2023-09-04 19:10] LABS: Hepatitis A Antibody IgM Nonreactive (Nonreactive); Hepatitis B Core IgM Nonreactive (Nonreactive); Hepatitis B Surface Antigen Nonreactive (Nonreactive); Hepatitis C IgG Antibody Nonreactive (Nonreactive)
[2023-09-04 20:05] LABS: Erythrocyte Sedimentation Rate 8 mm/Hr (0-20)
== END | disposition home or self-care (01) ==
LOC: LABWHC1 14:04
PROVIDERS: ATTEND Internal Medicine Gastroenterology
DX: K52.9 Noninfective gastroenteritis and colitis, unspecified (principal); K76.0 Fatty (change of) liver, not elsewhere classified
CPT/HCPCS: 36415; 80053; 80074; 81596; 83516; 85025; 85652; 86140

== ENCOUNTER → 2023-10-01 | Outpatient (CLI) | payer BC, OTHER ==
[2023-10-01 10:41] VITALS: BP 123/85; PULSE 69; RESP 16
--- NOTE | 2023-10-01 13:32 | P.PAINPG ---
PQRS Measure Charge Sheet Comment: HISTORY OF PRESENT ILLNESS: A 48 yr old female as a referral from [facility] presents today w severe and chronic LBP > 1 yr secondary to DDD, spondylosis and facet arthropathy without myelopathy for evaluation. Pt states pain level is provoked at 9 /10 in intensity, constant, localized in the lower lumbar spine, predominantly axial, sharp in character w occasional shooting pain towards the hips and LEs. Pain is provoked by twisting and bending. Pain is alleviated by PT x 6 wks in 2020, physician guided home exercises daily since 2020, heat, medications (Flexeril, Ibu), CBD topical, repositioning and rest. Oswestry axial pain score at 23. PMH: OA, Asthma PSH: EGD (2023), D&C, Hysterectomy, Tubal Ligation SH: Vape use, Occasional ETOH use, No illicit drug use FH: Fa- DM, CKD. Mo- HTN. Bro- CA, Schizophrenia. Sis- No Reported History. Son- Autism/ ADD/ ADHD All: See list Meds: See list REVIEW OF ORGAN SYSTEMS: CONSTITUTIONAL: No fevers or chills. No recent weight loss. NEUROLOGICAL: + numbness and tingling along the distal extremities. No seizure disorders or headaches. MUSCULOSKELETAL: + pain PSYCHIATRIC: Denies current depression or suicidal thoughts. Physical Examinations : Constitutional : Cooperative , not in acute distress . Neurologic : Cranial nerve II to XII intact. No focal neurological deficits. Psychiatric : alert & oriented x 3. Matching mood & appropriate affect. Judgment & insight intact. Musculoskeletal : Cervical Spine Motor strength in the deltoid and biceps: Normal right side. Normal Left side Motor strength biceps and the wrist extensors: Normal right side . Normal left side Motor strength in the triceps muscle: Normal right side. Normal left side Deep tendon reflexes: Normal at the biceps. Normal at Brachioradialis. Normal at triceps Vertebral body tenderness to deep palpation over Cervical facet loading test: positive bilaterally Spurling test: positive bilaterally Neck distraction test: positive bilaterally Tammie sign: positive bilaterally Lumbar spine Motor strength lower extremities ,thigh and legs 5/5 Right side , 5/5 Left side Deep tendon reflexes : Normal Knee Jerk. Normal Ankle Jerk Vertebral body tenderness over L5 Valente Test positive Lumbar facet Loading Test: positive Right / positive Left Range of motion of the lumbar spine Flexion 30 degrees, extension 10 degrees Straight Leg Raise test: Left/ Right positive at < 40 degrees Odilia test: positive right / positive left. Severe tenderness over the Sacroiliac joint on the Right / Left sides Gaenslen test: positive bilaterally Seated flexion test: positive bilaterally. Sacral spine : Severe tenderness over the Sacroiliac joint: right side / left side Range of motion: Flexion of the lumbar spine <60 degrees Range of motion: Extension of the lumbar spine <20 degrees Gaenslen's Test positive Odilia test: positive right side / left side Thigh Thrust Test Sacral Thrust Test Imaging: MRI noncontrast of the lumbar spine from 07/13/2023 reviewed Assessment/ Plan : Lumbar DDD Recommendation of DANNA L5-S1 #1. May need a series of injections for optimal pain relief. Risks, benefits of procedure discussed and patient verbalized understanding. Admits to anti- coagulant use or medical history of diabetes. Protocol for discontinuation/ continuation of medications liz procedure discussed. All questions answered. I have spent greater than 30 minutes on patient care today. Dr De La Cruz was available by phone for the evaluation of this patient. The time was used to review the medical records including relevant urine studies and Prescription history (MAPs), review of the available imaging, evaluation and examination of the patient, coordination of care with the medical staff and if applicable referring physicians, as well as creation of the medical record PQRS Narrative: Smoking Status Never smoker Home Medications: Ambulatory Orders Cyclobenzaprine [Flexeril] 5 mg PO BID PRN #15 tablet 11/12/19 Albuterol Inhaler [Ventolin Hfa Inhaler] 2 puff INHALATION TID PRN 07/07/23 FLUoxetine HCL 20 mg PO QAM 07/07/23 Ibuprofen 600 mg PO TID PRN 07/07/23 Multivitamin [Multivitamins Adult Gummies] 2 tab PO QAM 07/07/23 hydrOXYzine HCL [Hydroxyzine HCl] 25 mg PO HS 07/07/23 Controlled Substance Measures - Controlled Substance Measures Is patient prescribed a controlled substance at discharge?: No
== END ==
LOC: PNWHC3 09:52
PROVIDERS: ATTEND Specialist
DX: M51.36 Other intervertebral disc degeneration, lumbar region (principal); Z88.1 Allergy status to other antibiotic agents; Z88.0 Allergy status to penicillin
CPT/HCPCS: 99211

== ENCOUNTER → 2023-10-13 | Day surgery (SDC) | payer BC, OTHER ==
[~2023-10-13] MED LIST changes: -HYDROmorphone 0.5 MG/0.5 ML SYRINGE IVP PRN; +IOPAMIDOL M200 10 ML VIAL ONE; +methylPREDNISolone ACETATE 80 MG/ML 1 ML VIAL ONE
[2023-10-13 12:34] VITALS: TEMP 97.5
--- NOTE | 2023-10-13 12:38 | P.PCN ---
Date of Procedure: 10/13/23 Procedure(s) Performed: PREOPERATIVE DIAGNOSIS: 1- Lumbar Degenerative Disc Diseases 2-Lumbar Radiculopathy. 3-lumbar spinal stenosis POSTOPERATIVE DIAGNOSIS: 1-lumbar degenerative disc disease. 2-lumbar radiculopathy. 3-lumbar spinal stenosis. PROCEDURE 1. Lumbar epidural steroid injection under fluoroscopic guidance at the L5-S1 level. (Fluoroscopy imaging was available in radiology department) 2. Lumbar epidurogram. ANESTHESIA: Lidocaine 1% 3 and then only. EBL: Minimal PROCEDURE INDICATION: The patient with low back pain and radiculitis symptoms unresponsive to conservative treatment. Fluoroscopy was used to optimize visualization of the needle placement and to maximize safety. PROCEDURE DESCRIPTION / TECHNIQUE: The patient was seen and identified in the preoperative area. Risks, benefits, complications including but not limited to infections ,bleeding ,allergic reaction to the medications ,nerve damage and not complete pain releife , and alternatives were discussed with the patient. The patient agreed to proceed with the procedure and signed the consent, and vital signs were stable. Patient was taken to the OR and time out was completed. The patient was placed in the prone position on procedure table and a pillow was placed under the abdomen to reduce lumbar lordosis. The lumbosacral area was prepped and draped in the usual sterile fashion.ere closely monitored during the procedure. Vital signs was monitered during the entire procedure. Using anterior-posterior fluoroscopy, the L5-S1 interlaminar space was identified and the skin over this site was marked and then infiltrated with 1% lidocaine subcutaneously. Subsequently, a 20-gauge Tuohy epidural needle was inserted and advanced toward the epidural space using the ``Loss of resistance technique and guided by AP and lateral fluoroscopy. The correct needle position in the epidural space was verified with the injection of 2 mL of the water soluble contrast dye Isovue 200 contrast and observing an excellent epidurogram with the epidural spread of the dye, after negative aspiration for blood and CSF and in the absence of paresthesias. Again after negative aspiration, a 6 ml mixture containing 80 mg of Depo-medrol ( Preservetive Free ), and 2 ml of preservative free Normal Saline, and 2 ml of preservative free lidocaine 1% solution was injected and a washout of epidurogram was seen. Needle was withdrawn intact, skin was cleansed, and bandages were applied. COMPLICATIONS: None DISPOSITION / PLANS: The patient was placed in a supine position and transferred to the recovery area in a stable condition for observation. There was no evidence of lower extremity motor or sensory deficit after the procedure. Patient was discharged from the recovery room after meeting discharge criteria. Home discharge instructions were given to the patient by the staff. The patient was reexamined prior to discharge. The patient will schedule a follow up in the clinic in 2-4 weeks.
--- NOTE | 2023-10-13 12:47 | FL ---
Fluoroscopy INDICATION: Pain FINDINGS: Fluoroscopy time: 3.2 seconds. Total dose area product (DAP) in uGy*m?, mGy*cm? (or similar): 0.0169 Images obtained: 2. IMPRESSION: 1. Documentation of fluoroscopy.
[2023-10-13 13:17] VITALS: BP 130/84; PULSE 68; RESP 14
== END ==
LOC: ORPAIN 11:32
PROVIDERS: ATTEND Specialist
DX: M51.16 Intervertebral disc disorders with radiculopathy, lumbar region (principal); M48.061 Spinal stenosis, lumbar region without neurogenic claudication; Z88.0 Allergy status to penicillin; Z88.1 Allergy status to other antibiotic agents; Z90.710 Acquired absence of both cervix and uterus; Z79.899 Other long term (current) drug therapy
CPT/HCPCS: 62323; Q9966; J1010

== ENCOUNTER → 2023-11-04 | Outpatient (CLI) | payer BC, OTHER ==
[2023-11-04 12:37] VITALS: BP 134/82; PULSE 79; RESP 15; TEMP 98.1
--- NOTE | 2023-11-04 13:15 | P.PAINPG ---
PQRS Measure Charge Sheet Comment: HISTORY OF PRESENT ILLNESS: A 48 yr old female presents today w severe and chronic LBP > 1 yr secondary to DDD, spondylosis and facet arthropathy without myelopathy for evaluation s/p DANNA L5-S1 #1. Pt states she experienced 90 % pain relief x 3 wks s/p procedure. Pt states pain level is provoked at 4 /10 in intensity, constant, localized in the lower lumbar spine, predominantly axial, sharp in character w occasional shooting pain towards the hips and LEs. Pain is provoked by twisting and bending. Pain is alleviated by PT x 6 wks in 2020, physician guided home exercises daily since 2020, heat, medications , topical, repositioning and rest. Oswestry axial pain score at 17. Interventional procedures include DANNA L5-S1 x1 (Sep 2023) Medications include Flexeril, Ibu, CBD Oil REVIEW OF ORGAN SYSTEMS: CONSTITUTIONAL: No fevers or chills. No recent weight loss. NEUROLOGICAL: + numbness and tingling along the distal extremities. No seizure disorders or headaches. MUSCULOSKELETAL: + pain PSYCHIATRIC: Denies current depression or suicidal thoughts. Physical Examinations : Constitutional : Cooperative , not in acute distress . Neurologic : Cranial nerve II to XII intact. No focal neurological deficits. Psychiatric : alert & oriented x 3. Matching mood & appropriate affect. Judgment & insight intact. Musculoskeletal : Cervical Spine Motor strength in the deltoid and biceps: Normal right side. Normal Left side Motor strength biceps and the wrist extensors: Normal right side . Normal left side Motor strength in the triceps muscle: Normal right side. Normal left side Deep tendon reflexes: Normal at the biceps. Normal at Brachioradialis. Normal at triceps Vertebral body tenderness to deep palpation over Cervical facet loading test: positive bilaterally Spurling test: positive bilaterally Neck distraction test: positive bilaterally Tammie sign: positive bilaterally Lumbar spine Motor strength lower extremities ,thigh and legs 5/5 Right side , 5/5 Left side Deep tendon reflexes : Normal Knee Jerk. Normal Ankle Jerk Vertebral body tenderness over L5 Valente Test positive Lumbar facet Loading Test: positive Right / positive Left Range of motion of the lumbar spine Flexion 30 degrees, extension 10 degrees Straight Leg Raise test: Left/ Right positive at < 40 degrees Odilia test: positive right / positive left. Severe tenderness over the Sacroiliac joint on the Right / Left sides Gaenslen test: positive bilaterally Seated flexion test: positive bilaterally. Sacral spine : Severe tenderness over the Sacroiliac joint: right side / left side Range of motion: Flexion of the lumbar spine <60 degrees Range of motion: Extension of the lumbar spine <20 degrees Gaenslen's Test positive Odilia test: positive right side / left side Thigh Thrust Test Sacral Thrust Test Imaging: MRI noncontrast of the lumbar spine from 07/13/2023 reviewed Assessment/ Plan : Lumbar DDD Recommendation of PT to focus on therapeutic massage M51.36. All questions answered. I have spent greater than 30 minutes on patient care today. Dr De La Cruz was available by phone for the evaluation of this patient. The time was used to review the medical records including relevant urine studies and Prescription history (MAPs), review of the available imaging, evaluation and examination of the patient, coordination of care with the medical staff and if applicable referring physicians, as well as creation of the medical record PQRS Narrative: Smoking Status Never smoker Hx Alcohol Use (MH) No Home Medications: Ambulatory Orders Cyclobenzaprine [Flexeril] 5 mg PO BID PRN #15 tablet 11/12/19 Albuterol Inhaler [Ventolin Hfa Inhaler] 2 puff INHALATION TID PRN 07/07/23 FLUoxetine HCL 20 mg PO QAM 07/07/23 Ibuprofen 600 mg PO TID PRN 07/07/23 Multivitamin [Multivitamins Adult Gummies] 2 tab PO QAM 07/07/23 hydrOXYzine HCL [Hydroxyzine HCl] 25 mg PO HS 07/07/23 Atorvastatin [Lipitor] 10 mg PO DAILY 10/09/23 Cetirizine HCl [Zyrtec] 10 mg PO DAILY 10/09/23 diazePAM [Valium] 5 mg PO DAILY PRN 1 Days #2 tab 10/12/23 Controlled Substance Measures - Controlled Substance Measures Is patient prescribed a controlled substance at discharge?: No
== END ==
LOC: PNWHC3 12:15
PROVIDERS: ATTEND Specialist
DX: M51.36 Other intervertebral disc degeneration, lumbar region (principal); M47.816 Spondylosis without myelopathy or radiculopathy, lumbar region; Z88.0 Allergy status to penicillin; Z88.8 Allergy status to other drugs, medicaments and biological substances
CPT/HCPCS: 99211

== ENCOUNTER → 2023-11-30 | Outpatient (CLI) | payer BC, OTHER ==
[2023-11-30 14:44] LABS: Basophils # (A) 0.08 X 10*3/uL (0.00-0.10); Basophils % (A) 1.1 %; Eosinophils # (A) 0.12 X 10*3/uL (0.04-0.35); Eosinophils % (A) 1.7 %; HCT 43.9 % (37.2-46.3); HGB 13.8 g/dL (12.0-15.0); Lymphocytes # (A) 1.28 X 10*3/uL (0.90-5.00); Lymphocytes % (A) 17.9 %; MCH 29.8 pg (27.0-32.0); MCHC 31.4 g/dL (32.0-37.0); MCV 94.8 FL (80.0-97.0); Mean Platelet Volume 10.6 FL (9.5-12.2); Monocytes # (A) 0.44 X 10*3/uL (0.20-1.00); Monocytes % (A) 6.1 %; NRBC Per 100 WBC 0 X 10*3/uL (0.00-0.01); Neutrophils % (A) 72.6 %; Platelet Count 260 X 10*3/uL (140-440); RBC 4.63 X 10*6/uL (4.10-5.20); WBC 7.16 X 10*3/uL (4.50-10.00)
[2023-11-30 14:49] LABS: ALT 22 U/L (8-44); AST 18 U/L (13-35); Albumin 4.5 g/dL (3.8-4.9); Albumin/Globulin Ratio 1.88 Ratio (1.60-3.17); Alkaline Phosphatase 82 U/L (41-126); Blood Urea Nitrogen 16.2 mg/dL (9.0-27.0); Carbon Dioxide 19.2 mmol/L (21.6-31.8); Chloride 108 mmol/L (96-109); Globulin 2.4 g/dL (1.6-3.3); Glucose 106 mg/dL (70-110); Potassium 4.2 mmol/L (3.5-5.5); Sodium 140 mmol/L (135-145); Total Bilirubin 0.4 mg/dL (0.3-1.2); Total Protein 6.9 g/dL (6.2-8.2)
== END | disposition home or self-care (01) ==
LOC: LABWHC1 11:52
PROVIDERS: ATTEND Internal Medicine Gastroenterology
DX: K76.0 Fatty (change of) liver, not elsewhere classified (principal)
CPT/HCPCS: 36415; 80053; 85025

== ENCOUNTER → 2024-05-17 | Outpatient (CLI) | payer BC ==
--- NOTE | 2024-05-18 17:29 | MM ---
Reason for Exam: Screening (asymptomatic). Last mammogram was performed 1 year(s) and 2 month(s) ago. Patient History: Menarche at age 16. First Full-Term at age 18. Left ovary removed at age 43. Hysterectomy at age 43. 2018, Ultrasound-Guided Core Biopsy on the Right side. Maternal grandmother had breast cancer. Risk Values: Iram 5 year model risk: 0.8%. NCI Lifetime model risk: 7.4%. Prior Study Comparison: 02/09/2014 Bilateral Diagnostic Mammogram, [facility]. 11/27/2014 Right Diagnostic Mammogram, [facility]. 03/27/2023 Bilateral MG 3D screening mammo w/cad, [facility]. Tissue Density: The breasts are heterogeneously dense, which may obscure small masses. Findings: Analyzed By CAD. Global asymmetry lateral right breast is unchanged. Microclip right breast from prior biopsy. Other areas of asymmetric density are unchanged. There is no suspicious group of microcalcifications or new suspicious mass in either breast. Overall Assessment: Benign, BI-RAD 2 Management: Screening Mammogram of both breasts in 1 year. . Patient should continue monthly self-breast exams. A clinical breast exam by your physician is recommended on an annual basis. This exam should not preclude additional follow-up of suspicious palpable abnormalities. Note on Iram scores and lifetime risk: 1. A Iram score greater than 3% is considered moderate risk. If this is the case, consider specialist referral to assess eligibility for a risk reducing agent. 2. If overall lifetime risk for the development of breast cancer is 20% or higher, the patient may qualify for future screening with alternating mammogram and breast MRI. [facility], , 05/18/2024 5:26 PM. Electronically signed and approved by: Suma Torre M.D. Radiologist
== END | disposition home or self-care (01) ==
LOC: RADMAMWWP 15:24
PROVIDERS: ATTEND Internal Medicine
DX: Z12.31 Encounter for screening mammogram for malignant neoplasm of breast (principal); J45.20 Mild intermittent asthma, uncomplicated; Z80.3 Family history of malignant neoplasm of breast; Z90.721 Acquired absence of ovaries, unilateral; R92.333 Mammographic heterogeneous density, bilateral breasts
CPT/HCPCS: 77063; 77067; 94060; 94726; 94729

== ENCOUNTER 2024-05-25 13:29 | Emergency (ER) | payer BC ==
[2024-05-25 13:46] VITALS: RESP 18
--- NOTE | 2024-05-25 14:10 | ED ---
Abdominal Pain HPI - General Source: patient, RN notes reviewed Mode of arrival: ambulatory Limitations: no limitations - History of Present Illness MD Complaint: abdominal pain <Tara Robles - Last Filed: 05/25/24 14:08> <Rowan Lauren - Last Filed: 05/27/24 18:51> - General Chief Complaint: Abdominal Pain Stated Complaint: abd pain Time Seen by Provider: 05/25/24 14:00 - History of Present Illness Initial Comments: Quick Note: This is a 49-year-old female who presents to the emergency department for abdominal pain. Patient states she has had pain in the left uppe r quadrant underneath the left rib cage area for the last 4 days. Pain radiates into the back. Denies any nausea or vomiting. States that she has occasional shortness of breath and dizziness with this. Also reports feeling very fatigued. Denies any history of similar symptoms in the past. (Tara Robles) 49-year-old female presenting with chief complaint of abdominal pain. Patient has had left upper quadrant pain underneath her rib cage for the past 4 days. She does have some radiation of this pain into her back. She states that she has been coughing. She has also had occasional shortness of breath and some dizziness. No nausea vomiting or diarrhea. No recent illness. No fever. No injury or trauma. No dysuria or hematuria. (Rowan Lauren) - Related Data Home Medications Medication Instructions Recorded Confirmed Albuterol Inhaler [Ventolin Hfa 2 puff INHALATION TID PRN 07/07/23 10/13/23 Inhaler] FLUoxetine HCL 20 mg PO QAM 07/07/23 10/13/23 Ibuprofen 600 mg PO TID PRN 07/07/23 10/13/23 Multivitamin [Multivitamins Adult 2 tab PO QAM 07/07/23 10/13/23 Gummies] hydrOXYzine HCL [Hydroxyzine HCl] 25 mg PO HS 07/07/23 10/13/23 Atorvastatin [Lipitor] 10 mg PO DAILY 10/09/23 10/13/23 Cetirizine HCl [Zyrtec] 10 mg PO DAILY 10/09/23 10/13/23 Previous Rx's Medication Instructions Recorded Cyclobenzaprine [Flexeril] 5 mg PO BID PRN #15 tablet 11/12/19 diazePAM [Valium] 5 mg PO DAILY PRN 1 Days #2 tab 10/12/23 methylPREDNISolone Dose Pack 4 mg PO DIRECTED #21 tab 05/25/24 [Medrol Dose Pack] Allergies Allergy/AdvReac Type Severity Reaction Status Date / Time doxycycline Allergy Nausea & Verified 05/25/24 13:43 Vomiting Penicillins Allergy Unknown Verified 05/25/24 13:43 Review of Systems ROS Other: All systems not noted in ROS Statement are negative. <Tara Robles - Last Filed: 05/25/24 14:08> ROS Other: All systems not noted in ROS Statement are negative. <Rowan Lauren - Last Filed: 05/27/24 18:51> ROS Statement: Those systems with pertinent positive or pertinent negative responses have been documented in the HPI. Past Medical History Past Medical History: Asthma, Osteoarthritis (OA) Additional Past Medical History / Comment(s): DDD, HERNIATED DISK. UTERINE FIBROIDS, carpal tunnel, fatty liver History of Any Multi-Drug Resistant Organisms: None Reported Past Surgical History: Hysterectomy, Tubal Ligation Additional Past Surgical History / Comment(s): D&C Past Anesthesia/Blood Transfusion Reactions: No Reported Reaction Additional Past Anesthesia/Blood Transfusion Reaction / Comment(s): no hx blood transfusion Past Psychological History: No Psychological Hx Reported Smoking Status: Current every day smoker, Vaper Past Alcohol Use History: Occasional Past Drug Use History: None Reported - Past Family History Father Family Medical History: Diabetes Mellitus, Renal Disease Mother Family Medical History: Hypertension Brother(s) Family Medical History: Cancer Additional Family Medical History / Comment(s): scizophrenia, cancer unknown Sister(s) Family Medical History: No Reported History Son(s) Additional Family Medical History / Comment(s): autism, ADD <Tara Robles - Last Filed: 05/25/24 14:08> General Exam Limitations: no limitations <Tara Robles - Last Filed: 05/25/24 14:08> Limitations: no limitations General appearance: alert, in no apparent distress Head exam: Present: atraumatic, normocephalic, normal inspection Eye exam: Present: normal appearance, EOMI Neck exam: Present: normal inspection. Absent: meningismus Respiratory exam: Present: normal lung sounds bilaterally, chest wall tenderness (Left side). Absent: respiratory distress, wheezes, rales, rhonchi, stridor Cardiovascular Exam: Present: regular rate, normal rhythm, normal heart sounds. Absent: systolic murmur, diastolic murmur, rubs, gallop, clicks GI/Abdominal exam: Present: soft. Absent: distended, tenderness, guarding, rebound, rigid Neurological exam: Present: alert, oriented X3 Psychiatric exam: Present: normal affect, normal mood Skin exam: Present: warm, dry, normal color <Rowan Lauren - Last Filed: 05/27/24 18:51> - General Exam Comments Initial Comments: Visual Physical Exam Vital signs reviewed General: Well-appearing, nontoxic, no acute distress. Head: Normocephalic, atraumatic Eyes: PERRLA, EOMI ENT: Airway patent Chest: Nonlabored breathing Skin: No visual rash, normal skin tone Neuro: Alert and oriented 3 Musculoskeletal: No gross abnormalities (Tara Robles) Course Vital Signs 05/25/24 05/25/24 05/25/24 13:43 16:43 18:54 Temperature 98.5 F 98.2 F Pulse Rate 78 79 77 Respiratory 18 18 18 Rate Blood Pressure 135/80 147/91 140/91 O2 Sat by Pulse 97 97 97 Oximetry Medical Decision Making <Tara Robles - Last Filed: 05/25/24 14:08> - Lab Data Result diagrams: 05/25/24 15:00 05/25/24 15:00 <Rowan Lauren - Last Filed: 05/27/24 18:51> - Medical Decision Making I performed the QuickNote portion of this chart. Signed Tara Robles PA-C. (Tara Robles) Was pt. sent in by a medical professional or institution ([facility], [employer], urgent care, hospital, or [facility]...) When possible be specific @ -No Did you speak to anyone other than the patient for history (EMS, parent, family, police, friend...)? What history was obtained from this source @ -No Did you review nursing and triage notes (agree or disagree)? Why? @ -I reviewed and agree with nursing and triage notes Were old charts reviewed (outside hosp., previous admission, EMS record, old EKG, old radiological studies, urgent care reports/EKG's, [facility] records)? Report findings @ -No old charts were reviewed Differential Diagnosis (chest pain, altered mental status, abdominal pain women, abdominal pain men, vaginal bleeding, weakness, fever, dyspnea, syncope, headache, dizziness, GI bleed, back pain, seizure, CVA, palpatations, mental health, musculoskeletal)? @ -MDM Differential Abdominal Pain Women: Appendicitis, Cholecystitis, diverticulosis, ischemic bowel, pancreatitis, hepatitis, UTI, gastroenteritis, AAA, incarcerated hernia, bowel obstruction, constipation, inflammatory bowel, hepatitis, peptic ulcer disease, splenic infarction, perforated viscus, vulvitis, ovarian torsion, PID, kidney stone, placenta abruption... This is not meant to be an all-inclusive list EKG interpreted by me (3pts min.). @ -EKG shows sinus rhythm ventricular rate 68. MD interval 150. QRS 85. QT 400. QTc 416. X-rays interpreted by me (1pt min.). @ -None done CT interpreted by me (1pt min.). @ -CT shows no suspicious acute changes. There is some mild fatty infiltration of the liver U/S interpreted by me (1pt. min.). @ -None done What testing was considered but not performed or refused? (CT, X-rays, U/S, labs)? Why? @ -None What meds were considered but not given or refused? Why? @ -None Did you discuss the management of the patient with other professionals (professionals i.e. , PA, [employer], lab, RT, psych nurse, professor of social work, gear inspector, teacher, space operations officer, classification case manager)? Give summary @ -No Was smoking cessation discussed for >3mins.? @ -No Was critical care preformed (if so, how long)? @ -No Were there social determinants of health that impacted care today? How? (Homelessness, low income, unemployed, alcoholism, drug addiction, transportation, low edu. Level, literacy, decrease access to med. care, fci, rehab)? @ -No Was there de-escalation of care discussed even if they declined (Discuss DNR or withdrawal of care, Hospice)? DNR status @ -No What co-morbidities impacted this encounter? (DM, HTN, Smoking, COPD, CAD, Cancer, CVA, ARF, Chemo, Hep., AIDS, mental health diagnosis, sleep apnea, morbid obesity)? @ -None Was patient admitted / discharged? Hospital course, mention meds given and route, prescriptions, significant lab abnormalities, going to OR and other pertinent info. @ -49-year-old female presenting with chief complaint of left upper quadrant pain ongoing for few days. Workup initiated by triage. No leukocytosis or anemia. Negative D-dimer and troponin. Patient is later placed in a hallway bed and examined by myself. Patient is having more so left-sided rib pain. Pain is worse with deep breaths. She is having no abdominal pain on exam. Patient's lung bases are clear on CT. Symptoms seem most in line with pleurisy. Patient is educated on today's findings. She will be treated with Medrol Dosepak. Patient is agreeable with this plan. I discussed this case with my attending Dr. Knight. Undiagnosed new problem with uncertain prognosis? @ -No Drug Therapy requiring intensive monitoring for toxicity (Heparin, Nitro, Insulin, Cardizem)? @ -No Were any procedures done? @ -No Diagnosis/symptom? @ -Pleurisy Acute, or Chronic, or Acute on Chronic? @ -Acute Uncomplicated (without systemic symptoms) or Complicated (systemic symptoms)? @ -Uncomplicated Side effects of treatment? @ -No Exacerbation, Progression, or Severe Exacerbation? @ -No Poses a threat to life or bodily function? How? (Chest pain, [place], MT, pneumonia, PE, COPD, DKA, ARF, appy, cholecystitis, CVA, Diverticulitis, Homicidal, Suicidal, threat to staff... and all critical care pts) @ -Low likelihood (Rowan Lauren) - Lab Data Lab Results 05/25/24 05/25/24 05/25/24 Range/Units 15:00 15:00 15:00 WBC 7.9 (3.8-10.6) k/uL RBC 4.84 (3.80-5.40) m/uL Hgb 15.1 (11.4-16.0) gm/dL Hct 45.6 (34.0-46.0) % MCV 94.2 (80.0-100.0) fL MCH 31.1 (25.0-35.0) pg MCHC 33.1 (31.0-37.0) g/dL RDW 12.5 (11.5-15.5) % Plt Count 274 (150-450) k/uL MPV 7.3 Neutrophils % 66 % Lymphocytes % 23 % Monocytes % 5 % Eosinophils % 4 % Basophils % 1 % Neutrophils # 5.2 (1.3-7.7) k/uL Lymphocytes # 1.8 (1.0-4.8) k/uL Monocytes # 0.4 (0-1.0) k/uL Eosinophils # 0.3 (0-0.7) k/uL Basophils # 0.1 (0-0.2) k/uL PT 10.0 (10.0-12.5) sec INR 0.9 (<1.2) APTT 24.0 (22.0-30.0) sec D-Dimer 0.23 (<0.60) mg/L FEU Sodium 138 (137-145) mmol/L Potassium 4.2 (3.5-5.1) mmol/L Chloride 109 H (98-107) mmol/L Carbon Dioxide 21 L (22-30) mmol/L Anion Gap 8 mmol/L BUN 15 (7-17) mg/dL Creatinine 0.54 (0.52-1.04) mg/dL Est GFR (CKD-EPI)AfAm >90 (>60 ml/min/1.73 sqM) Est GFR (CKD-EPI)NonAf >90 (>60 ml/min/1.73 sqM) Glucose 86 (74-99) mg/dL Calcium 9.4 (8.4-10.2) mg/dL Magnesium 2.1 (1.6-2.3) mg/dL Total Bilirubin 0.5 (0.2-1.3) mg/dL AST 29 (14-36) U/L ALT 39 H (4-34) U/L Alkaline Phosphatase 93 (38-126) U/L Troponin I (0.000-0.034) ng/mL Total Protein 7.6 (6.3-8.2) g/dL Albumin 4.8 (3.5-5.0) g/dL Amylase 71 (30-110) U/L Lipase 275 (23-300) U/L Urine Color Urine Appearance (Clear) Urine pH (5.0-8.0) Ur Specific [place] (1.001-1.035) Urine Protein (Negative) Urine Glucose (UA) (Negative) Urine Ketones (Negative) Urine Blood (Negative) Urine Nitrite (Negative) Urine Bilirubin (Negative) Urine Urobilinogen (<2.0) mg/dL Ur Leukocyte Esterase (Negative) 05/25/24 05/25/24 Range/Units 15:00 17:50 WBC (3.8-10.6) k/uL RBC (3.80-5.40) m/uL Hgb (11.4-16.0) gm/dL Hct (34.0-46.0) % MCV (80.0-100.0) fL MCH (25.0-35.0) pg MCHC (31.0-37.0) g/dL RDW (11.5-15.5) % Plt Count (150-450) k/uL MPV Neutrophils % % Lymphocytes % % Monocytes % % Eosinophils % % Basophils % % Neutrophils # (1.3-7.7) k/uL Lymphocytes # (1.0-4.8) k/uL Monocytes # (0-1.0) k/uL Eosinophils # (0-0.7) k/uL Basophils # (0-0.2) k/uL PT (10.0-12.5) sec INR (<1.2) APTT (22.0-30.0) sec D-Dimer (<0.60) mg/L FEU Sodium (137-145) mmol/L Potassium (3.5-5.1) mmol/L Chloride (98-107) mmol/L Carbon Dioxide (22-30) mmol/L Anion Gap mmol/L BUN (7-17) mg/dL Creatinine (0.52-1.04) mg/dL Est GFR (CKD-EPI)AfAm (>60 ml/min/1.73 sqM) Est GFR (CKD-EPI)NonAf (>60 ml/min/1.73 sqM) Glucose (74-99) mg/dL Calcium (8.4-10.2) mg/dL Magnesium (1.6-2.3) mg/dL Total Bilirubin (0.2-1.3) mg/dL AST (14-36) U/L ALT (4-34) U/L Alkaline Phosphatase (38-126) U/L Troponin I <0.012 (0.000-0.034) ng/mL Total Protein (6.3-8.2) g/dL Albumin (3.5-5.0) g/dL Amylase (30-110) U/L Lipase (23-300) U/L Urine Color Colorless Urine Appearance Clear (Clear) Urine pH 5.5 (5.0-8.0) Ur Specific [place] >1.050 H (1.001-1.035) Urine Protein Negative (Negative) Urine Glucose (UA) Negative (Negative) Urine Ketones Negative (Negative) Urine Blood Negative (Negative) Urine Nitrite Negative (Negative) Urine Bilirubin Negative (Negative) Urine Urobilinogen <2.0 (<2.0) mg/dL Ur Leukocyte Esterase Negative (Negative) Disposition <Tara Robles - Last Filed: 05/25/24 14:08> Is patient prescribed a controlled substance at d/c from ED?: No Time of Disposition: 18:44 <Rowan Lauren - Last Filed: 05/27/24 18:51> Clinical Impression: Pleurisy Disposition: HOME SELF-CARE Condition: Good Instructions (If sedation given, give patient instructions): Pleurisy (ED) Additional Instructions: Follow-up with PCP. Report back to ER with any new or worsening symptoms. Take Motrin and Tylenol as needed for pain control. Prescriptions: methylPREDNISolone Dose Pack [Medrol Dose Pack] 4 mg PO DIRECTED #21 tab Referrals: Brain Jerome MD [Primary Care Provider] - 1-2 days
[2024-05-25 15:19] LABS: Basophils # (A) 0.1 k/uL (0-0.2); Basophils % (A) 1 %; Eosinophils # (A) 0.3 k/uL (0-0.7); Eosinophils % (A) 4 %; HCT 45.6 % (34.0-46.0); HGB 15.1 gm/dL (11.4-16.0); Lymphocytes # (A) 1.8 k/uL (1.0-4.8); Lymphocytes % (A) 23 %; MCH 31.1 pg (25.0-35.0); MCHC 33.1 g/dL (31.0-37.0); MCV 94.2 fL (80.0-100.0); Mean Platelet Volume 7.3; Monocytes # (A) 0.4 k/uL (0-1.0); Monocytes % (A) 5 %; Neutrophils # (A) 5.2 k/uL (1.3-7.7); Neutrophils % (A) 66 %; Platelet Count 274 k/uL (150-450); RBC 4.84 m/uL (3.80-5.40); RDW 12.5 % (11.5-15.5); WBC 7.9 k/uL (3.8-10.6)
[2024-05-25 15:35] LABS: ALT 39 U/L (4-34); AST 29 U/L (14-36); African American GFR (CKD) >90 (>60 ml/min/1.73 sqM); Albumin 4.8 g/dL (3.5-5.0); Alkaline Phosphatase 93 U/L (38-126); Amylase 71 U/L (30-110); Anion Gap 8 mmol/L; Blood Urea Nitrogen 15 mg/dL (7-17); Calcium 9.4 mg/dL (8.4-10.2); Carbon Dioxide 21 mmol/L (22-30); Chloride 109 mmol/L (98-107); Glucose 86 mg/dL (74-99); Lipase 275 U/L (23-300); Magnesium 2.1 mg/dL (1.6-2.3); Non-African American GFR(CKD) >90 (>60 ml/min/1.73 sqM); Potassium 4.2 mmol/L (3.5-5.1); Sodium 138 mmol/L (137-145); Total Bilirubin 0.5 mg/dL (0.2-1.3); Total Protein 7.6 g/dL (6.3-8.2)
[2024-05-25 15:56] LABS: INR 0.9 (<1.2)
--- NOTE | 2024-05-25 16:48 | CT ---
EXAMINATION TYPE: CT abdomen pelvis w con DATE OF EXAM: 05/25/2024 4:29 PM COMPARISON: 04/27/2018 CLINICAL INDICATION: Female, 49 years old with history of LUQ pain, LUQ abdominal pain x 4 days TECHNIQUE: Axial images were obtained from above the diaphragm to the pubic rami in the axial plane a t 5 mm thick sections. Reconstructed images are reviewed on the computer in the coronal plane. CONTRAST: 100 mL of Isovue 300. Study performed without Oral Contrast DLP: 1483.1 mGycm, Automated exposure control for dose reduction was used. FINDINGS: Limited CT sections are obtained the lung bases. The lung bases are clear. CT ABDOMEN: Liver: Minimal fatty infiltration liver is present. No discrete masses Spleen: Normal Pancreas: Normal Adrenal glands: The adrenal glands are normal. Gallbladder: Normal Kidneys: No masses are evident. No hydronephrosis is present. No cysts are present. Delayed images were obtained through the kidneys, which remain unremarkable. Aorta: Normal Inferior vena cava: Normal. CT PELVIS: Loops of bowel within the abdomen and pelvis are normal. There are loops of bowel which are incom pletely distended or lack oral contrast limiting their evaluation. Appendix: Normal as visualized. Urinary bladder: Normal. Genitourinary structures: Uterus is not identified. Adnexal regions are normal. Osseous structures: No suspicious lytic or sclerotic lesions. IMPRESSION: 1. No suspicious acute changes. 2. There are some mild fatty infiltration liver. [facility], , 05/25/2024 4:46 PM
[2024-05-25] MEDS: KETOROLAC 15 MG/ML 1 ML VIAL IVP STA (17:56)
[2024-05-25] MEDS: DEXAMETHASONE SOD PHOSPHATE 10 MG/ML 1 ML VIAL IV STA (17:57)
[2024-05-25 18:24] LABS: Appearance,Urine Clear (Clear); Bilirubin,Urine Negative (Negative); Blood,Urine Negative (Negative); Color,Urine Colorless; Glucose,Urine (UA) Negative (Negative); Ketones,Urine Negative (Negative); Leukocyte Esterase,Urine Negative (Negative); Nitrite,Urine Negative (Negative); PH, Urine 5.5 (5.0-8.0); Protein,Urine Negative (Negative); Urobilinogen,Urine <2.0 mg/dL (<2.0)
[2024-05-25 18:40] LABS: Specific Gravity,Urine >1.050 (1.001-1.035)
[2024-05-25] MEDS: LIDOCAINE 4% PATCH TOPICAL ONE (18:51)
[2024-05-25 18:55] VITALS: BP 140/91; PULSE 77; TEMP 98.2
== END 2024-05-25 18:55 | disposition home or self-care (01) ==
LOC: EC 13:29
DX: R09.1 Pleurisy (principal); F17.290 Nicotine dependence, other tobacco product, uncomplicated; Z88.0 Allergy status to penicillin; Z88.8 Allergy status to other drugs, medicaments and biological substances
CPT/HCPCS: 36415; 93005; 85379; 80053; 82150; 83690; 83735; 84484; 85025; 85610; 85730; 81003; 74177; 99284; 96374; 96375; J1100; J1885; Q9967

== ENCOUNTER 2024-10-03 05:54 | Emergency (ER) | payer BC, OTHER ==
--- NOTE | 2024-10-03 06:46 | ED ---
SOB HPI - General Chief Complaint: Shortness of Breath Stated Complaint: SOB Time Seen by Provider: 10/03/24 06:01 Source: patient, RN notes reviewed Mode of arrival: ambulatory Limitations: no limitations - History of Present Illness Initial Comments: 49-year-old female presents emergency department with chief complaint of shortness of breath. Patient states that she has had increasing issues with her asthma over the last 3 to 4 weeks. Patient states that she has been using inhaler more frequent she does get relief with her nebulizer. Patient reports no fevers states her lungs feel very tight denies any chest pain or prior cardiac issues. Patient denies any headache or dizziness nausea vomit diarrhea constipation. Patient offers no other complaints. - Related Data Home Medications Medication Instructions Recorded Confirmed Albuterol Inhaler [Ventolin Hfa 2 puff INHALATION TID PRN 07/07/23 10/13/23 Inhaler] FLUoxetine HCL 20 mg PO QAM 07/07/23 10/13/23 Ibuprofen 600 mg PO TID PRN 07/07/23 10/13/23 Multivitamin [Multivitamins Adult 2 tab PO QAM 07/07/23 10/13/23 Gummies] hydrOXYzine HCL [Hydroxyzine HCl] 25 mg PO HS 07/07/23 10/13/23 Atorvastatin [Lipitor] 10 mg PO DAILY 10/09/23 10/13/23 Cetirizine HCl [Zyrtec] 10 mg PO DAILY 10/09/23 10/13/23 Previous Rx's Medication Instructions Recorded Cyclobenzaprine [Flexeril] 5 mg PO BID PRN #15 tablet 11/12/19 diazePAM [Valium] 5 mg PO DAILY PRN 1 Days #2 tab 10/12/23 methylPREDNISolone Dose Pack 4 mg PO DIRECTED #21 tab 05/25/24 [Medrol Dose Pack] Ipratropium-Albuterol Nebulize 3 ml INHALATION QID #25 each 10/03/24 [Duoneb 0.5 mg-3 mg/3 ml Soln] predniSONE 50 mg PO DAILY #5 tab 10/03/24 Allergies Allergy/AdvReac Type Severity Reaction Status Date / Time doxycycline Allergy Nausea & Verified 05/25/24 13:43 Vomiting Penicillins Allergy Unknown Verified 05/25/24 13:43 Review of Systems ROS Statement: Those systems with pertinent positive or pertinent negative responses have been documented in the HPI. ROS Other: All systems not noted in ROS Statement are negative. Past Medical History Past Medical History: Asthma, Osteoarthritis (OA) Additional Past Medical History / Comment(s): DDD, HERNIATED DISK. UTERINE FIBROIDS, carpal tunnel, fatty liver History of Any Multi-Drug Resistant Organisms: None Reported Past Surgical History: Hysterectomy, Tubal Ligation Additional Past Surgical History / Comment(s): D&C Past Anesthesia/Blood Transfusion Reactions: No Reported Reaction Additional Past Anesthesia/Blood Transfusion Reaction / Comment(s): no hx blood transfusion Past Psychological History: No Psychological Hx Reported Smoking Status: Current every day smoker, Vaper Past Alcohol Use History: Occasional Past Drug Use History: None Reported - Past Family History Father Family Medical History: Diabetes Mellitus, Renal Disease Mother Family Medical History: Hypertension Brother(s) Family Medical History: Cancer Additional Family Medical History / Comment(s): scizophrenia, cancer unknown Sister(s) Family Medical History: No Reported History Son(s) Additional Family Medical History / Comment(s): autism, ADD General Exam Limitations: no limitations General appearance: alert, in no apparent distress Head exam: Present: atraumatic, normocephalic, normal inspection Eye exam: Present: normal appearance, PERRL, EOMI. Absent: scleral icterus, conjunctival injection, periorbital swelling ENT exam: Present: normal exam, normal oropharynx, mucous membranes moist Neck exam: Present: normal inspection, full ROM. Absent: tenderness, meningismus, lymphadenopathy Respiratory exam: Present: wheezes, decreased breath sounds. Absent: normal lung sounds bilaterally, respiratory distress, rales, rhonchi, stridor Cardiovascular Exam: Present: regular rate, normal rhythm, normal heart sounds. Absent: systolic murmur, diastolic murmur, rubs, gallop, clicks GI/Abdominal exam: Present: soft, normal bowel sounds. Absent: distended, tenderness, guarding, rebound, rigid Course Vital Signs 10/03/24 10/03/24 10/03/24 05:58 07:35 08:27 Temperature 98.0 F Pulse Rate 72 65 74 Respiratory 18 18 18 Rate Blood Pressure 164/90 135/95 137/84 O2 Sat by Pulse 94 L 94 L 97 Oximetry Medical Decision Making - Medical Decision Making Was pt. sent in by a medical professional or institution ([facility] Cm, [facility]IC[facility] WASHER, urgent care, hospital, or alf...) When possible be specific @ -No Did you speak to anyone other than the patient for history (EMS, parent, family, police, friend...)? What history was obtained from this source @ -No Did you review nursing and triage notes (agree or disagree)? Why? @ -I reviewed and agree with nursing and triage notes Were old charts reviewed (outside hosp., previous admission, EMS record, old EKG, old radiological studies, urgent care reports/EKG's, alf records)? Report findings @ -No old charts were reviewed Differential Diagnosis (chest pain, altered mental status, abdominal pain women, abdominal pain men, vaginal bleeding, weakness, fever, dyspnea, syncope, headache, dizziness, GI bleed, back pain, seizure, CVA, palpatations, mental health, musculoskeletal)? @ -[Differential Dyspnea: Coronary syndrome, arrhythmia, tamponade, asthma, COPD, pulmonary embolism, pneumonia, pneumothorax, pulmonary effusion, anaphylaxis, diabetic ketoacidosis, flailed chest, pulmonary contusion, diaphragmatic rupture, anemia, neuromuscular, this is not meant to be an all-inclusive list. EKG interpreted by me (3pts min.). @ -As above X-rays interpreted by me (1pt min.). @ -Chest x-ray shows no acute cardiopulmonary process. CT interpreted by me (1pt min.). @ -None done U/S interpreted by me (1pt. min.). @ -None done What testing was considered but not performed or refused? (CT, X-rays, U/S, labs)? Why? @ -None What meds were considered but not given or refused? Why? @ -None Did you discuss the management of the patient with other professionals (luisa pineda i.e. [facility] Cm, [facility]IC[employer] WASHER, lab, RT, psych nurse, social insurance administrator, box bender, teacher, event security officer, shoe caser)? Give summary @ -No Was smoking cessation discussed for >3mins.? @ -No Was critical care preformed (if so, how long)? @ -No Were there social determinants of health that impacted care today? How? (Homelessness, low income, unemployed, alcoholism, drug addiction, transportation, low edu. Level, literacy, decrease access to med. care, fpc, rehab)? @ -No Was there de-escalation of care discussed even if they declined (Discuss DNR or withdrawal of care, Hospice)? DNR status @ -No What co-morbidities impacted this encounter? (DM, HTN, Smoking, COPD, CAD, Cancer, CVA, ARF, Chemo, Hep., AIDS, mental health diagnosis, sleep apnea, morbid obesity)? @ -Asthma Was patient admitted / discharged? Hospital course, mention meds given and route, prescriptions, significant lab abnormalities, going to OR and other pertinent info. @ -Discharge patient feels great improved after DuoNeb treatment chest x-ray, laboratory studies unremarkable. Patient has acute asthma exacerbation she is requiring more use of her rescue inhaler she needs to follow-up with solution strategist and discussed possible inhaled corticosteroid. Undiagnosed new problem with uncertain prognosis? @ -No Drug Therapy requiring intensive monitoring for toxicity (Heparin, Nitro, Insulin, Cardizem)? @ -No Were any procedures done? @ -No Diagnosis/symptom? @ -Asthma exacerbation Acute, or Chronic, or Acute on Chronic? @ -Acute Uncomplicated (without systemic symptoms) or Complicated (systemic symptoms)? @ -Complicated Side effects of treatment? @ -No Exacerbation, Progression, or Severe Exacerbation? @ -No Poses a threat to life or bodily function? How? (Chest pain, [place], [place], pneumonia, PE, COPD, DKA, ARF, appy, cholecystitis, CVA, Diverticulitis, Homicidal, Suicidal, threat to staff... and all critical care pts) @ -Yes low likelihood asthma, respiratory arrest - Lab Data Result diagrams: 10/03/24 07:26 10/03/24 07:26 Lab Results 10/03/24 10/03/24 10/03/24 Range/Units 07:26 07:26 07:26 WBC 7.42 (4.50-10.00) 10*3/uL RBC 4.61 (4.10-5.20) 10*6/uL Hgb 14.2 (12.0-15.0) g/dL Hct 41.3 (37.2-46.3) % MCV 89.6 (80.0-97.0) fL MCH 30.8 (27.0-32.0) pg MCHC 34.4 (32.0-37.0) g/dL Plt Count 228 (140-440) 10*3/uL MPV 9.6 (9.5-12.2) fL Immature Gran % (Auto) 0.4 % Neutrophils % 63.3 % Lymphocytes % 22.6 % Monocytes % 7.4 % Eosinophils % 4.7 % Basophils % 1.6 % Immature Gran # 0.03 (0.00-0.04) 10*3/uL Neutrophils # 4.69 (1.80-7.70) 10*3/uL Lymphocytes # 1.68 (0.90-5.00) 10*3/uL Monocytes # 0.55 (0.20-1.00) 10*3/uL Eosinophils # 0.35 (0.04-0.35) 10*3/uL Basophils # 0.12 H (0.00-0.10) 10*3/uL PT 10.2 (10.0-12.5) sec INR 0.9 (<1.2) APTT 22.9 (22.0-30.0) sec Sodium 135 L (137-145) mmol/L Potassium 3.8 (3.5-5.1) mmol/L Chloride 104 (98-107) mmol/L Carbon Dioxide 23 (22-30) mmol/L Anion Gap 8 mmol/L BUN 14 (7-17) mg/dL Creatinine 0.45 L (0.52-1.04) mg/dL Est GFR (CKD-EPI)AfAm >90 (>60 ml/min/1.73 sqM) Est GFR (CKD-EPI)NonAf >90 (>60 ml/min/1.73 sqM) Glucose 103 H (74-99) mg/dL Calcium 8.8 (8.4-10.2) mg/dL Magnesium 2.0 (1.6-2.3) mg/dL Total Bilirubin 1.0 (0.2-1.3) mg/dL AST 32 (14-36) U/L ALT 65 H (4-34) U/L Alkaline Phosphatase 82 (38-126) U/L Troponin I (0.000-0.034) ng/mL NT-Pro-B Natriuret Pep 58 pg/mL Total Protein 6.8 (6.3-8.2) g/dL Albumin 4.2 (3.5-5.0) g/dL 04/21/25 Range/Units 07:26 WBC (4.50-10.00) 10*3/uL RBC (4.10-5.20) 10*6/uL Hgb (12.0-15.0) g/dL Hct (37.2-46.3) % MCV (80.0-97.0) fL MCH (27.0-32.0) pg MCHC (32.0-37.0) g/dL Plt Count (140-440) 10*3/uL MPV (9.5-12.2) fL Immature Gran % (Auto) % Neutrophils % % Lymphocytes % % Monocytes % % Eosinophils % % Basophils % % Immature Gran # (0.00-0.04) 10*3/uL Neutrophils # (1.80-7.70) 10*3/uL Lymphocytes # (0.90-5.00) 10*3/uL Monocytes # (0.20-1.00) 10*3/uL Eosinophils # (0.04-0.35) 10*3/uL Basophils # (0.00-0.10) 10*3/uL PT (10.0-12.5) sec INR (<1.2) APTT (22.0-30.0) sec Sodium (137-145) mmol/L Potassium (3.5-5.1) mmol/L Chloride (98-107) mmol/L Carbon Dioxide (22-30) mmol/L Anion Gap mmol/L BUN (7-17) mg/dL Creatinine (0.52-1.04) mg/dL Est GFR (CKD-EPI)AfAm (>60 ml/min/1.73 sqM) Est GFR (CKD-EPI)NonAf (>60 ml/min/1.73 sqM) Glucose (74-99) mg/dL Calcium (8.4-10.2) mg/dL Magnesium (1.6-2.3) mg/dL Total Bilirubin (0.2-1.3) mg/dL AST (14-36) U/L ALT (4-34) U/L Alkaline Phosphatase (38-126) U/L Troponin I <0.012 (0.000-0.034) ng/mL NT-Pro-B Natriuret Pep pg/mL Total Protein (6.3-8.2) g/dL Albumin (3.5-5.0) g/dL - EKG Data -: EKG Interpreted by Me EKG Comments: EKG performed 725 rate of 63 NC 171 QRS 85 QT/QTc 413/421 normal sinus rhythm Disposition Clinical Impression: Acute asthma exacerbation Disposition: HOME SELF-CARE Condition: Stable Instructions (If sedation given, give patient instructions): Asthma (ED) Additional Instructions: Please return to the Emergency Department if symptoms worsen or any other concerns. Prescriptions: Ipratropium-Albuterol Nebulize [Duoneb 0.5 mg-3 mg/3 ml Soln] 3 ml INHALATION QID #25 each predniSONE 50 mg PO DAILY #5 tab Is patient prescribed a controlled substance at d/c from ED?: No Referrals: Brain Jerome MD [Primary Care Provider] - 1-2 days Donald Valdez MD [STAFF PHYSICIAN] - 1-2 days Time of Disposition: 08:37
[2024-10-03 07:35] LABS: Basophils # (A) 0.12 10*3/uL (0.00-0.10); Basophils % (A) 1.6 %; Eosinophils # (A) 0.35 10*3/uL (0.04-0.35); Eosinophils % (A) 4.7 %; HCT 41.3 % (37.2-46.3); HGB 14.2 g/dL (12.0-15.0); Lymphocytes # (A) 1.68 10*3/uL (0.90-5.00); Lymphocytes % (A) 22.6 %; MCH 30.8 pg (27.0-32.0); MCHC 34.4 g/dL (32.0-37.0); MCV 89.6 fL (80.0-97.0); Mean Platelet Volume 9.6 fL (9.5-12.2); Monocytes # (A) 0.55 10*3/uL (0.20-1.00); Monocytes % (A) 7.4 %; Neutrophils # (A) 4.69 10*3/uL (1.80-7.70); Neutrophils % (A) 63.3 %; Platelet Count 228 10*3/uL (140-440); RBC 4.61 10*6/uL (4.10-5.20); RDW 12.5 % (11.5-14.5); WBC 7.42 10*3/uL (4.50-10.00)
[2024-10-03] MEDS: methylPREDNISolone SOD SUCCI 125 MG/2 ML VIAL IV STA (07:37)
[2024-10-03 07:44] LABS: ALT 65 U/L (4-34); AST 32 U/L (14-36); African American GFR (CKD) >90 (>60 ml/min/1.73 sqM); Albumin 4.2 g/dL (3.5-5.0); Alkaline Phosphatase 82 U/L (38-126); Anion Gap 8 mmol/L; Blood Urea Nitrogen 14 mg/dL (7-17); Calcium 8.8 mg/dL (8.4-10.2); Carbon Dioxide 23 mmol/L (22-30); Chloride 104 mmol/L (98-107); Glucose 103 mg/dL (74-99); INR 0.9 (<1.2); Non-African American GFR(CKD) >90 (>60 ml/min/1.73 sqM); Partial Thromboplastin Time 22.9 sec (22.0-30.0); Potassium 3.8 mmol/L (3.5-5.1); Prothrombin Time 10.2 sec (10.0-12.5); Sodium 135 mmol/L (137-145); Total Protein 6.8 g/dL (6.3-8.2)
[2024-10-03 07:52] LABS: NT-Pro-B-Type Natriuretic Pept 58 pg/mL
--- NOTE | 2024-10-03 08:04 | XR ---
EXAMINATION TYPE: XR chest 2V DATE OF EXAM: 10/03/2024 7:56 AM COMPARISON: Chest radiographs from 03/16/2023 TECHNIQUE: XR chest 2V Frontal and lateral views of the chest. CLINICAL INDICATION:Female, 49 years old with history of difficulty breathing; FINDINGS: Lungs/Pleura: There is no evidence of pleural effusion, focal consolidation, or pneumothorax. Pulmonary vascularity: Unremarkable. Heart/mediastinum: Cardiomediastinal silhouette is unremarkable. Musculoskeletal: No acute osseous pathology. IMPRESSION: No acute cardiopulmonary disease/process. [facility], , 10/03/2024 8:02 AM
[2024-10-03] MEDS: IPRATROPIUM-ALBUTEROL 3 ML NEB INHALATION STA (08:26)
[2024-10-03 08:50] VITALS: BP 143/77; PULSE 97; RESP 16; TEMP 98.2
== END 2024-10-03 08:56 | disposition home or self-care (01) ==
LOC: EC 05:54
DX: J45.901 Unspecified asthma with (acute) exacerbation (principal); F17.290 Nicotine dependence, other tobacco product, uncomplicated; Z88.0 Allergy status to penicillin; Z88.1 Allergy status to other antibiotic agents
CPT/HCPCS: 36415; 94640; 93005; 83880; 80053; 83735; 84484; 85025; 85610; 85730; 71046; 99285; 96374; J2919